=== PATIENT | male | born 1950 | race Caucasian/White ===

== ENCOUNTER 2021-07-23 00:45 | Day surgery (SDC) | payer MEDICARE, SELFPAY ==
[2021-06-20 13:05] VITALS: BMI 45.0
--- NOTE | 2021-07-01 12:07 | PC.NURSE ---
PATIENT CALLED REGARDING NEW GUIDELINES FOR COVID TESTING AND THAT HE WOULD NOT NEED TO TEST ON 07/05/2021 FOR UP COMING PROCEDURE ON 07/09/2021. PT VERBALIZED HE WAS AWARE OF THIS CHANGE IN POLICY.
--- NOTE | 2021-07-07 14:55 | PM.HPGS ---
History of Present Illness History of Present Illness Consent: Risks, benefits, and alternatives have been discussed and questions answered. Patient agrees to proceed with procedure. Chief complaint: hx of colon polyps Narrative: Joseph Guardado is a 71 year old male The history of polyps. He is here for colon cancer screening. Review of Systems Review of Systems: All systems reviewed & are unremarkable except as noted in HPI and below PMFSH Family History Family History (Updated 04/14/18 @ 16:01 by DOCTOR UNKNOWN) Mother Hypertension Social History Social History Years smoked: 3 Smoking status: Former smoker Tobacco type: cigarettes Smoking end date: 03/01/1967 Alcohol intake: never Substance use: never Substance use type: does not use Living arrangements: with family Spiritual care concerns: No Meds Home Medications and Allergies Home Medications Medication Instructions Recorded Confirmed Type aspirin 81 mg tablet,delayed 81 mg PO DAILY 06/20/21 07/23/21 History release hydrochlorothiazide 12.5 mg tablet 12.5 mg PO DAILY 06/20/21 07/23/21 History lisinopril 10 mg tablet 10 mg PO DAILY 06/20/21 07/23/21 History carbidopa 25 mg-levodopa 100 mg 25 - 100 tablet PO QID 07/23/21 07/23/21 History tablet Allergies Allergy/AdvReac Type Severity Reaction Status Date / Time No Known Allergies Allergy Verified 07/23/21 06:24 Exam Resp: Auscultation: clear to auscultation bilaterally Cardio: Rate: regular rate Rhythm: regular rhythm GI: GI Palp: Yes Soft to palpation and No Tenderness to palpation present (GI) Assessment and Plan Assessment and plan (1) Colon cancer screening: Code(s): Z12.11 - Encounter for screening for malignant neoplasm of colon Status: Acute Assessment and Plan: Colonoscopy with possible biopsy or polypectomy or cautery or injection of substances.
[2021-07-23 06:29] VITALS: BP 127/64; PULSE 87; RESP 16; TEMP 36.2; O2SAT 93
[2021-07-23] MEDS: LACTATED RINGERS 1,000 ML 150 ML IV CONT (06:41)
--- NOTE | 2021-07-23 07:15 | P.PNAN_ITS ---
Anes - Initial Pre Proc Eval Procedure: Operation Date: 07/23/21 07:30 Proposed Procedures p Screening Colonoscopy - Shay Zuñiga MD Date/Time: 07/23/21 07:15 Surgeon: Shay Zuñiga MD Pre Op Diagnosis: hx of colon polyps Patient Data Age: 71 Gender: M Height: 1.88 m Weight: 158 kg Last Vital Signs Temp 97.2 F L 07/23/21 06:29 Pulse 87 07/23/21 06:29 Resp 16 07/23/21 06:29 BP 127/64 07/23/21 06:29 Pulse Ox 93 07/23/21 06:29 O2 Del Method Room Air 07/23/21 06:29 Allergies Allergy/AdvReac Type Severity Reaction Status Date / Time No Known Allergies Allergy Verified 07/23/21 06:24 Home Medications Medication Instructions Recorded Confirmed Type aspirin 81 mg tablet,delayed 81 mg PO DAILY 06/20/21 07/23/21 History release hydrochlorothiazide 12.5 mg tablet 12.5 mg PO DAILY 06/20/21 07/23/21 History lisinopril 10 mg tablet 10 mg PO DAILY 06/20/21 07/23/21 History carbidopa 25 mg-levodopa 100 mg 25 - 100 tablet PO QID 07/23/21 07/23/21 History tablet Patient hx anesthesia problems: none Family hx anesthesia problems: none Results Review: All pre-operative results and documents have been reviewed as part of the pre- operative evaluation. [facility] Family History Family History (Updated 04/14/18 @ 16:01 by DOCTOR UNKNOWN) Mother Hypertension Social History Social History Years smoked: 3 Smoking status: Former smoker Tobacco type: cigarettes Smoking end date: 03/01/1967 Alcohol intake: never Substance use: never Substance use type: does not use Living arrangements: with family Spiritual care concerns: No Anes - Eval Final PreProcedure Day of Procedure 07/23/21 07:15 Patient weight: normal and morbidly obese Heart: regular rate and rhythm Lungs: clear to auscultation Airway: Mallampati scale class III Neurological: alert and oriented Last oral intake: >/= 8 hours ASA classification: III Emergent: no Anesthetic plan: proceed Anesthesia type and monitoring: general GIVS and standard monitoring Results Review: All pre-operative results and documents have been reviewed as part of the pre- operative evaluation. Informed Consent: The patient's anesthetic plan and its attendant risks and benefits were discussed with the patient/family/POA. Questions were solicited and answers provided to the satisfaction of the patient/family/POA.
[2021-07-23 07:50] VITALS: BP 89/46; PULSE 60; RESP 20; O2SAT 99
[2021-07-23 08:00] VITALS: BP 101/60; PULSE 64; RESP 20; O2SAT 94
[2021-07-23 08:10] VITALS: BP 106/60; PULSE 71; RESP 16; O2SAT 96
== END 2021-07-23 08:30 | disposition home or self-care (01) ==
PROVIDERS: PCP Internal Medicine; Visit Provider Internal Medicine Gastroenterology
PROC: 0DJD8ZZ Inspection of Lower Intestinal Tract, Via Natural or Artificial Opening Endoscopic (ICD-10-PCS; CPT 45378; principal; 2021-07-23 07:30)
DX: Z12.11 Encounter for screening for malignant neoplasm of colon (principal); K57.30 Diverticulosis of large intestine without perforation or abscess without bleeding; Z86.010 Personal history of colon polyps
CPT/HCPCS: G0105; J2704; J7120

== ENCOUNTER 2021-11-08 17:31 | Inpatient (IN) | payer MEDICARE, SELFPAY ==
[2021-11-08] VITALS (28 sets, daily range): BP systolic 67–117; BP diastolic 49–62; PULSE 67–81; RESP 15–28; TEMP 36.2–36.9; O2SAT 77–100; BMI 44.1
--- NOTE | ~2021-11-08 | XR_ITS ---
EXAMINATION: XR chest 1V portable Exam Date/Time: 11/08/2021 17:50 CDT HISTORY: Lightheadedness,parkinsons, hx htn Comparison: 03/21/2018. RESULT: Lines, tubes, and devices: None. Lungs and pleura: Clear. Cardiomediastinal silhouette: Stable. Other: No acute osseous or upper abdominal finding. IMPRESSION: No acute cardiopulmonary process. Reviewed, dictated and finalized at location K.
--- NOTE | ~2021-11-08 | US_ITS ---
EXAMINATION: US carotid duplex BI DATE: 11/09/2021 10:13 INDICATION: Syncope TECHNIQUE: Grayscale, color Doppler, and pulsed Doppler images of the cervical carotid arteries were obtained. The degree of vessel stenosis is placed in one of the following categories: normal, <50%, 5 0-69%, >=70% but less than near-occlusion, near-occlusion, or total occlusion. Note that percent sten osis relative to normal distal artery lumen diameter is indirectly measured from velocity measurement s as described by Osmani, et al. Radiology 2003; 229:[id number]. COMPARISON: None. FINDINGS: RIGHT: The right common carotid artery (CCA) peak systolic velocity (PSV) is 118.9 cm/s. The right internal carotid artery (ICA) PSV is 92.9 cm/s. The right ICA end-diastolic velocity (EDV) is 25.6 cm/s. The r ight ICA/CCA PSV ratio is 0.8. Grayscale and color Doppler images yield an estimate of less than 50% diameter reduction from plaque in the ICA. The external carotid artery (ECA) PSV is 142.1 cm/s. There is antegrade flow in the right vertebral artery. LEFT: The left CCA PSV is 149.8 cm/s. The left ICA PSV is 92.7 cm/s. The left ICA EDV is 28.2 cm/s. The lef t ICA/CCA PSV ratio is 0.6. Grayscale and color Doppler images yield an estimate of less than 50% beulah meter reduction from plaque in the ICA. The ECA PSV is 108.3 cm/s. There is antegrade flow in the lef t vertebral artery. IMPRESSION: 1. Less than 50% stenosis in the right internal carotid artery. 2. Less than 50% stenosis in the left internal carotid artery. Reviewed, dictated and finalized at Location A. Reviewed, dictated and finalized at location A.
--- NOTE | ~2021-11-08 | US_ITS ---
US venous doppler [facility] DATE: 11/09/2021 10:10 INDICATION: Swelling of lower extremities TECHNIQUE: Real-time and color flow imaging and Doppler analysis of the veins of the lower extremitie s COMPARISON: None FINDINGS: The greater saphenous veins are patent. There is spontaneous and phasic flow and normal aug mentation and color flow signal and normal compression of the deep veins of the lower extremities.. IMPRESSION: No evidence of deep venous thrombosis of the lower extremities Reviewed, dictated and finalized at Location A. Reviewed, dictated and finalized at location A.
--- NOTE | 2021-11-08 17:34 | ED.CHESTPAIN ---
HPI - Chest Pain General Chief Complaint: Chest Pain Stated Complaint: Possible STEMI Time Seen by Provider: 11/08/21 17:34 Source: patient, family and EMS Mode of arrival: EMS Limitations: no limitations History of Present Illness HPI narrative: Patient 71 years old white male came from home by ambulance because lightheadedness, near syncope/syncope. Patient was standing talking to his when he felt lightheadedness, went down slowly to the floor on his knees, then his did ask him to lay down on the floor because his color went white, staring, not responding to her. Lasted for about 10 to 20 seconds. Then resolved. Patient reports having similar symptoms when he gets up fast or move fast. But he never blacked out. History of hypertension, parkinsonism, patient currently on aspirin, denies any anticoagulant medications. Does not smoke or drink or uses drugs, morbidly obese, he denies any fever, chills, nausea, vomiting, chest pain, shortness of breath, headache, focal neurodeficit. Related Data Home Medications Medication Instructions Recorded Confirmed aspirin 81 mg tablet,delayed 81 mg PO DAILY 06/20/21 07/23/21 release hydrochlorothiazide 12.5 mg tablet 12.5 mg PO DAILY 06/20/21 07/23/21 lisinopril 10 mg tablet 10 mg PO DAILY 06/20/21 07/23/21 carbidopa 25 mg-levodopa 100 mg 25 - 100 tablet PO QID 07/23/21 07/23/21 tablet Allergies Allergy/AdvReac Type Severity Reaction Status Date / Time No Known Allergies Allergy Verified 07/23/21 06:24 Review of Systems Review of Systems: All systems reviewed & are unremarkable except as noted in HPI and below PMFSH Family History Family History Mother Hypertension Social History Social History Years smoked: 3 Smoking status: Former smoker Tobacco type: cigarettes Smoking end date: 03/01/1967 Alcohol intake: never Substance use: never Substance use type: does not use Spiritual care concerns: No Exam Narrative: General appearance: Well-developed, well-nourished, morbidly obese, and daughter at the bedside Skin: Normal color Head: Normocephalic, nontraumatic Eyes: Clear conjunctiva ENT: Oropharynx normal, ears normal, nose normal Neck: Supple, nontender Chest and respiratory: Airway patent, no respiratory distress, no accessory muscle use Heart: Regular rate/rhythm Abdomen: Soft, nontender, no organomegaly, quiet bowel sounds Vascular: Normal peripheral pulses, normal capillary refill. Musculoskeletal: Normal range of motion, nontender back Neurologic: Alert and oriented ?3, HOSPICE DIRECTOR is normal as tested, no gross motor deficit, constant tremors of the right upper and right lower extremity Course Vital Signs Vital signs: Vital Signs Temperature 36.9 C 11/08/21 17:30 Pulse Rate 78 11/08/21 17:30 Respiratory Rate 17 11/08/21 17:30 Blood Pressure 113/57 L 11/08/21 17:30 Pulse Oximetry 96 11/08/21 17:30 Oxygen Delivery Room Air 11/08/21 17:30 Temperature 36.9 C 11/08/21 17:30 Pulse Rate 77 11/08/21 17:37 Respiratory Rate 17 11/08/21 17:30 Blood Pressure 113/57 L 11/08/21 17:30 Pulse Oximetry 96 11/08/21 17:30 Oxygen Delivery Room Air 11/08/21 17:41 MDM - Chest Pain Differential Diagnosis Differential diagnosis: Likely other (Orthostatic hypotension, electrolyte imbalance, cardiac arrhythmia) Lab Data Result diagrams: 11/08/21 17:34 11/08/21 17:34 Labs: Lab Results 11/08/21 11/08/21 11/08/21 Range/Units 17:34 17:34 17:34 WBC 8.0 (4.5-10.0) K/mm3 RBC 4.96 (4.
--- NOTE | 2021-11-08 17:46 | ECG_ITS ---
Measurements Intervals [place] Rate: 78 P: 38 ME: 182 QRS: 24 QRSD: 154 T: 15 QT: 403 QTc: 459 Interpretive Statements SINUS RHYTHM RIGHT BUNDLE BRANCH BLOCK BASELINE ARTIFACT- I, II, III, AVR, AVL, AVF, V2 ABNORMAL ECG NO PREVIOUS ECG AVAILABLE FOR COMPARISON Electronically Signed On 11-08-2021 21:37:17 CDT by Dagoberto Pack D.O.
[2021-11-08 17:59] LABS: Basophils Percent Auto 0.5 % (0.2-1.2); Eosinophils Absolute Auto 0.2 K/mm3 (0-0.3); Eosinophils Percent Auto 2.6 % (0-4.4); Hematocrit 45.2 % (42.0-52.0); Hemoglobin 14.8 g/dL (14.0-18.0); Immature Granulocyte Absolute 0.02 K/mm3 (0.00-0.031); Immature Granulocyte Percent A 0.2 % (0-0.5); Lymphocytes Absolute Auto 2.52 K/mm3 (0.9-3.2); Lymphocytes Percent Auto 31.5 % (18.3-44.2); Mean Corpuscular HGB Conc 32.7 g/dl (32-36); Mean Corpuscular Hemoglobin 29.8 pg (26-34); Mean Corpuscular Volume 91.1 fl (80-100); Mean Platelet Volume 10.3 fl (7.4-10.4); Monocytes Absolute Auto 0.6 K/mm3 (0.1-0.6); Neutrophils Absolute Auto 4.7 K/mm3 (1.3-6.7); Neutrophils Percent Auto 58.2 % (45.5-73.1); Platelet Count Result 217 k/mm3 (150-375); Red Blood Count 4.96 M/mm3 (4.6-6.20); Red Cell Distribution Width 14.3 % (11.5-14.5)
[2021-11-08 18:05] LABS: Alanine Aminotransferase 11 U/L (6-50); Albumin Level 3.8 g/dL (3.5-5.1); Alkaline Phosphatase 71 U/L (38-126); Anion Gap 11 mmol/L (8-16); Aspartate Amino Transferase 27 U/L (17-59); Bilirubin,Total 0.4 mg/dL (0.2-1.3); Blood Urea Nitrogen 14 mg/dL (9-20); Calcium 8.5 mg/dL (8.4-10.2); Carbon Dioxide 28 mmol/L (22-30); Chloride 100 mmol/L (98-107); Estimated CRCL calculation 102 ml/min; Estimated Glomerular Filt Rate > 60; Glucose 123 mg/dL (65-110); Potassium 3.6 mmol/L (3.4-5.0); Sodium 139 mmol/L (137-145)
[2021-11-08 18:10] LABS: INR 1.1; Prothrombin Time 13.9 Seconds (11.1-14.7)
[2021-11-08 18:11] LABS: Partial Thromboplastin Time 27.2 SECONDS (22.3-36.8)
[2021-11-08 18:18] LABS: Troponin I < 0.012 ng/mL (0.000-0.034)
[2021-11-08] MEDS: SODIUM CHLORIDE 0.9% IV 1,000 ML 999 ML IV CONT ×2 (19:06→19:17)
[2021-11-08 19:51] LABS: Appearance Urine Clear (Clear); Bilirubin Urine 1+ (Negative); Color Urine Yellow (Yellow); Glucose Urine UA Negative (Negative); Ketones Urine Trace mg/dL (Negative); Leukocyte Esterase Ur Negative LEU/UL (Negative); Nitrate Urine Negative (Negative); Protein Urine 1+ mg/dL (Negative); Specific Grav Ur 1.015 (1.001-1.035)
[2021-11-08] MEDS: CARBIDOPA/LEVODOPA 25/100 MG TABLET 1 TABLET PO (19:53)
[2021-11-08 19:56] LABS: Add Urine Microscopic? YES; Bacteria Urine Trace /hpf; Blood Urine Trace-Intact (Negative); Mucus Urine Rare /lpf; WBC Urine 0-3 /hpf
--- NOTE | 2021-11-08 20:00 | PM.IMHP ---
H&P: HPI History of Present Illness Date/Time: 10/30/21 20:00 Chief Complaint: Brief loss of consciousness. Narrative: This is a very pleasant 71-year-old male with Parkinson's disease, hypertension, sleep apnea, and history of pulmonary embolism who presented to the emergency department via EMS from home for evaluation after a brief loss of consciousness. Not long prior to arrival he was standing in his kitchen when he began to feel extremely lightheaded, dizzy, and weak. He was speaking with his at the time and she helped him to get slowly down on the floor. He initially landed on his knees and then he rolled into a supine position. At that time noticed that he was extremely pale and he seemed to be staring off into space, not responding to her. This lasted for approximately 10 to 20 seconds and he came to without issue. He has had similar symptoms in the past, typically if he gets up too quickly. It is not unusual for him to feel a bit lightheaded when he goes from a sitting to a standing position. He has never had an episode where he lost consciousness, however. EKG done in the field was initially called a STEMI however his EKG showed a a right bundle branch block and no acute ST segment changes. The patient was not having any chest pain whatsoever and his troponins have been negative. At the time my evaluation he is resting comfortably and has no complaints. Review of Systems Review of Systems: Twelve systems were reviewed. He ambulates unassisted. No dysphagia or concerns for aspiration. [facility] Past Medical History Medical History (Updated 11/09/21 @ 00:19 by Rabia Orr PA-C) Arthritis Hypertension Obstructive sleep apnea on CPAP Parkinsons disease Pulmonary embolism (2018) Surgical History Surgical History (Updated 11/09/21 @ 00:19 by Rabia Orr PA-C) History of ankle surgery ORIF left ankle fracture. History of bilateral knee arthroplasty History of lumbar discectomy History of tonsillectomy Family History Family History Mother Hypertension Father Acute myocardial infarction Social History Social History (Updated 11/09/21 @ 13:49 by Rabia Orr PA-C) Social History: Surrogate medical decision maker: Yareli Guardado, spouse. Code status: Full code. Years smoked: 2 Smoking status: Former smoker Tobacco type: cigarettes Smoking end date: 03/01/1967 Alcohol intake: never Substance use: never Substance use type: does not use Additional living arrangements comments: Lives with spouse in [facility] Spiritual care concerns: No Meds Home Medications and Allergies Home Medications Medication Instructions Recorded Confirmed Type aspirin 81 mg tablet,delayed 81 mg PO DAILY 06/20/21 11/08/21 History release hydrochlorothiazide 12.5 mg tablet 12.5 mg PO DAILY 06/20/21 11/08/21 History lisinopril 10 mg tablet 10 mg PO DAILY 06/20/21 11/08/21 History carbidopa 25 mg-levodopa 100 mg 1 tablet PO Q6H 07/23/21 11/08/21 History tablet Allergies Allergy/AdvReac Type Severity Reaction Status Date / Time No Known Allergies Allergy Verified 11/08/21 20:39 Vital Signs Vital Signs - 24 hr 11/08/21 17:30 11/08/21 17:37 11/08/21 17:41 Temperature 98.5 F Pulse Rate 78 77 Respiratory Rate 17 Blood Pressure 113/57 L Pulse Oximetry 96 Oxygen Delivery Room Air Room Air 11/08/21 17:47 11/08/21 18:41 11/08/21 18:44 Temperature Pulse Rate 72 74 79 Respiratory Rate Blood Pressure 99/51 L 88/60 L 67/52 L Pulse Oximetry Oxygen Delivery 11/08/21 17:35 11/08/21 17:36 11/08/21 17:45 Temperature Pulse Rate 79 79 77 Respiratory Rate 28 H 16 20 Blood Pressure 113/57 L Pulse Oximetry 96 96 98 Oxygen Delivery 11/08/21 17:46 11/08/21 18:00 11/08/21 18:01 Temperature Pulse Rate 77 73 74 Respiratory Rate 15 18 21 H Blood Pressure 111/54 L 107/55 L Pu
[2021-11-08 21:35] LABS: Troponin I < 0.012 ng/mL (0.000-0.034)
--- NOTE | 2021-11-08 23:12 | PC.NURSE ---
Addendum entered by Jessi Ramsey RN 11/09/21 01:29: Pt arrived to the floor at 2215 Original Note: This patient, Joseph Guardado, was admitted to IMU Room 211-01. Patient/family oriented to hospital policies and general routines including ID bracelet, bed and alarms, visiting hours, pain management, procedures, bathroom and other care routines, personal items, smoking policy, room service/diet, and visiting hours. Information on how to activate the Rapid Response Team has been discussed. Patient/Family are encouraged to report perceived risks to care and to ask questions if they do not understand what they are told or what they should do.
[2021-11-09] VITALS (19 sets, daily range): BP systolic 107–142; BP diastolic 53–107; PULSE 62–84; RESP 16–24; TEMP 36.6–37.1; O2SAT 95–100
[2021-11-09] MEDS: CARBIDOPA/LEVODOPA 25/100 MG TABLET 1 TABLET PO ×4 (06:17→23:49)
--- NOTE | 2021-11-09 08:43 | PM.IMPN ---
Progress Note: A&P Assessment and Plan (1) Orthostatic hypotension: Code(s): I95.1 - Orthostatic hypotension Status: Acute (2) Syncope: Code(s): R55 - Syncope and collapse Status: Acute (3) Parkinsons disease: Code(s): G20 - Parkinson's disease Status: Acute (4) Obstructive sleep apnea on CPAP: Code(s): G47.33 - Obstructive sleep apnea (adult) (pediatric); Z99.89 - Dependence on other enabling machines and devices Status: Acute (5) Hypertension: Code(s): I10 - Essential (primary) hypertension Status: Acute Plan The patient presented to the emergency department via EMS from home for evaluation after he had a brief syncopal episode at home. Prior to that he was standing in the kitchen speaking with his when he began to feel dizzy, lightheaded, and weak. He has episodes like this on occasion, mainly when changing positions too quickly or going from a seated to standing position.? He did have positive orthostatic vital signs in the emergency department and I suspect he has got some autonomic dysfunction from his Parkinson's which is predisposing him to this unfortunately. Most likely his blood pressure dropped while he was in the kitchen causing the brief syncopal episode however he will be monitored on telemetry to rule out cardiac dysrhythmia.? An echocardiogram and carotid Doppler ultrasounds have been ordered for a.m..? Pulmonary embolism is considered given history of the same however seems less likely by history.? He does have significant lower extremity edema however and we will check venous Doppler ultrasounds to rule out DVT. At this time will hold his antihypertensives and monitor orthostatic vital signs every shift. Should this be an ongoing problem we would consider adding midodrine though again will have to monitor his blood pressure as he would be at risk for supine hypertension. Labs were reviewed and they are reassuring. His home medications will be reviewed and resumed as appropriate. 11/09/21 Parkinson's pt home meds dosing regimen to be continued on normal schedule cont to hold antihypertensives orthostatics vital signs q shift (have not been appropriately documented since admission clarification order sent to RN to alert them to need for OVS) on going IVFs depending on OVS findings cont current care ECHO pending carotids w/o significant stenosis anticipate dc tomorrow after OVS corrected Subjective Date/time seen: 11/09/21 08:43 shaking uncontrolled pt states he is not receiving his home meds on correct dosing schedule Review of Systems Review of Systems: All systems reviewed & are unremarkable except as noted in HPI and below Exam Narrative: General: Well-developed male supine in bed in no distress. Weight: 56 kilograms. BMI: 44.2. HEENT: Normocephalic, atraumatic. Wearing glasses. PERRL, EOMI. Sclera anicteric. Oral mucosa moist. Crowded oropharynx. Neck: Supple. Exam limited due to neck circumference. No obvious bruits. Respiratory: Respirations are nonlabored and he is speaking in full sentences. Lungs are clear to auscultation. Cardiovascular: Regular rate and rhythm with S1-S2. Gastrointestinal: Abdomen is soft, obese, and nontender with positive bowel sounds. No organomegaly. Skin: Warm and dry. Chronic skin changes of the lower legs bilaterally. Extremities: No cyanosis or clubbing. He has chronic pitting and nonpitting edema of the lower legs. No palpable knots or cords. Negative Clovis sign bilaterally. Radial pulses palpable. Pedal pulses difficult to palpate given edema but feet are well perfused. Neurological: Alert. Cranial nerves 2-12 are grossly intact. Speech is clear. No facial asymmetry. No gross focal deficits to casual conversation. Psychiatric: Pleasant and cooperative with normal mood and affect. Judgment and insight intact. Objective Data Vital Signs Vital Signs: Vital Signs - 24 hr 11/08/21 17:30 11/08
[2021-11-09] MEDS: ASPIRIN 81 MG ENTERIC TABLET PO (09:18)
[2021-11-10] VITALS (11 sets, daily range): BP systolic 125–149; BP diastolic 72–98; PULSE 60–92; RESP 12–16; TEMP 36.5–36.9; O2SAT 96–97
--- NOTE | 2021-11-10 | ECHO_ITS ---
Patient Info Name: Joseph Guardado Age: 71 years : 1950 Gender: Male Ht: 74 in Wt: 343 lbs BSA: 2.92 m2 HR: 60 bpm BP: 125 / 75 mmHg Heart Rhythm: Sinus Rhythm Technical Quality: Fair Exam Date: 11/10/2021 10:30 AM Exam Location: [facility] Patient Status: Inpatient Admit Date: 11/09/2021 Staff Ordering Physician: Rabia Orr PA-C Director Teen Post: Kat Panchal RDCS Attending Provider: Raiza Bush MD Referring Physician: Kirby PITTMAN; Exam Type: CA echo dop color flow w con Study Info Indications R55 - Syncope and collapse Complete two-dimensional, color flow and Doppler transthoracic echocardiogram is performed with contrast to opacify the left ventricle and to improve the deliniation of the left ventricle endocardial borders. Contrast/Agitated Saline Contrast/Ag. Saline: Definity Amount: 3.00 ml Administered By: Kat Panchal RDCS Existing IV Access: Yes IV Access Condition: patent with no signs of infiltration Summary 1. Technically difficult study with limited views. Definity echo contrast enhancement utilized. 2. Left ventricular chamber dimension is normal. 3. Left ventricular systolic function is normal, estimated at 65-70%. 4. There is no increased left ventricular wall thickness. 5. Left ventricular septal wall motion is abnormal with septal motion related to bundle branch block. 6. The left ventricular diastolic function is grade I diastolic dysfunction. 7. There is no aortic valve stenosis. 8. There is trace mitral valve regurgitation. 9. There is trace tricuspid valve regurgitation. 10. No pulmonary hypertension, estimated pulmonary arterial systolic pressure is 30 mmHg. Left Ventricle Left ventricular chamber dimension is normal. Left ventricular systolic function is normal, estimated at 65-70%. There is no increased left ventricular wall thickness. Left ventricular septal wall motion is abnormal with septal motion related to bundle branch block. The left ventricular diastolic function is grade I diastolic dysfunction. Technically difficult study with limited views. Definity echo contrast enhancement utilized. Right Ventricle Right ventricular chamber dimension is normal. Right ventricular systolic function is normal. Left Atria Left atrial chamber dimension is normal. Right Atria Right atrial chamber dimension is normal. Aortic Valve The aortic valve is not well visualized. There is no aortic valve stenosis. There is no aortic valve regurgitation. Pulmonic Valve The pulmonic valve is not well visualized. Mitral Valve The mitral valve has normal leaflets. There is trace mitral valve regurgitation. The mitral valve annulus is mildly calcified. Tricuspid Valve The tricuspid valve leaflets are not well visualized. There is trace tricuspid valve regurgitation. No pulmonary hypertension, estimated pulmonary arterial systolic pressure is 30 mmHg. Pericardium/Pleural The pericardium appears not well visualized. There is trivial pericardial effusion. Aorta The aortic root size at the sinus of Valsalva is normal. Left Ventricular Outflow Tract Name Value Normal LVOT 2D LVOT Diam
[2021-11-10 04:40] LABS: Basophils Percent Auto 0.3 % (0.2-1.2); Eosinophils Absolute Auto 0.2 K/mm3 (0-0.3); Eosinophils Percent Auto 3.2 % (0-4.4); Hematocrit 41.5 % (42.0-52.0); Hemoglobin 13.5 g/dL (14.0-18.0); Immature Granulocyte Absolute 0.01 K/mm3 (0.00-0.031); Immature Granulocyte Percent A 0.1 % (0-0.5); Lymphocytes Absolute Auto 1.92 K/mm3 (0.9-3.2); Lymphocytes Percent Auto 28.3 % (18.3-44.2); Mean Corpuscular HGB Conc 32.5 g/dl (32-36); Mean Corpuscular Hemoglobin 29.9 pg (26-34); Mean Corpuscular Volume 91.8 fl (80-100); Mean Platelet Volume 10.4 fl (7.4-10.4); Monocytes Absolute Auto 0.6 K/mm3 (0.1-0.6); Monocytes Percent Auto 9.4 % (2.6-8.5); Neutrophils Percent Auto 58.7 % (45.5-73.1); Platelet Count Result 178 k/mm3 (150-375); Red Blood Count 4.52 M/mm3 (4.6-6.20); Red Cell Distribution Width 14.5 % (11.5-14.5); White Blood Count 6.8 K/mm3 (4.5-10.0)
[2021-11-10 04:55] LABS: Anion Gap 8 mmol/L (8-16); Blood Urea Nitrogen 15 mg/dL (9-20); Calcium 8.5 mg/dL (8.4-10.2); Carbon Dioxide 28 mmol/L (22-30); Chloride 102 mmol/L (98-107); Estimated CRCL calculation 128 ml/min; Estimated Glomerular Filt Rate > 60; Glucose 111 mg/dL (65-110); Potassium 3.9 mmol/L (3.4-5.0); Sodium 138 mmol/L (137-145)
[2021-11-10] MEDS: CARBIDOPA/LEVODOPA 25/100 MG TABLET 1 TABLET PO ×2 (08:35→14:01)
[2021-11-10] MEDS: ASPIRIN 81 MG ENTERIC TABLET PO (08:35)
[2021-11-10] MEDS: SODIUM CHLORIDE 0.9% IV 1,000 ML 100 ML IV CONT (08:35)
[2021-11-10] MEDS: PERFLUTREN LIPID MICROSPHERES 1.5 ML VIAL DILUTED TO 10 ML TOTAL VOLUME IV PUSH (10:56)
--- NOTE | 2021-11-10 10:57 | IVDEFINITY ---
Prior to administration of IV Definity the patient was educated on the risks and benefits of the imaging enhancing agent including potential adverse side effects. The patient verbalized understanding. Allergies were verified. No exclusion criteria were identified and at least one of the following inclusion criteria were met: 1) physician request, 2) patient technically difficult to image (per the [place] [employer] guidelines of two or more segments not discernable within the apical view), or 3) questionable left ventricular function. ?
--- NOTE | 2021-11-10 15:22 | PM.DS ---
DS: Admitting Diagnosis Discharge Date 11/10/21 Admitting Diagnosis (1) Orthostatic hypotension: ?Code(s): I95.1 - Orthostatic hypotension ?Status:?Acute (2) Syncope: ?Code(s): R55 - Syncope and collapse ?Status:?Acute (3) Parkinsons disease: ?Code(s): G20 - Parkinson's disease ?Status:?Acute (4) Obstructive sleep apnea on CPAP: ?Code(s): G47.33 - Obstructive sleep apnea (adult) (pediatric); Z99.89 - Dependence on other enabling machines and devices ?Status:?Acute (5) Hypertension: ?Code(s): I10 - Essential (primary) hypertension ?Status:?Acute DS: Discharge Diagnosis Discharge Diagnosis (1) Orthostatic hypotension: Code(s): I95.1 - Orthostatic hypotension Status: Acute (2) Syncope: Code(s): R55 - Syncope and collapse Status: Acute (3) Parkinsons disease: Code(s): G20 - Parkinson's disease Status: Acute (4) Obstructive sleep apnea on CPAP: Code(s): G47.33 - Obstructive sleep apnea (adult) (pediatric); Z99.89 - Dependence on other enabling machines and devices Status: Acute (5) Hypertension: Code(s): I10 - Essential (primary) hypertension Status: Acute DS: Summary Hospital Course Reason for hospitalization: Chief Complaint: Brief loss of consciousness. Narrative: This is a very pleasant 71-year-old male with Parkinson's disease, hypertension, sleep apnea, and history of pulmonary embolism who presented to the emergency department via EMS from home for evaluation after a brief loss of consciousness. Not long prior to arrival he was standing in his kitchen when he began to feel extremely lightheaded, dizzy, and weak. He was speaking with his at the time and she helped him to get slowly down on the floor. He initially landed on his knees and then he rolled into a supine position. At that time noticed that he was extremely pale and he seemed to be staring off into space, not responding to her.? This lasted for approximately 10 to 20 seconds and he came to without issue. He has had similar symptoms in the past, typically if he gets up too quickly.? It is not unusual for him to feel a bit lightheaded when he goes from a sitting to a standing position.? He has never had an episode where he lost consciousness, however. EKG done in the field was initially called a STEMI however his EKG showed a a right bundle branch block and no acute ST segment changes.? The patient was not having any chest pain whatsoever and his troponins have been negative. At the time my evaluation he is resting comfortably and has no complaints. Hospital Course: The patient presented to the emergency department via EMS from home for evaluation after he had a brief syncopal episode at home. Prior to that he was standing in the kitchen speaking with his when he began to feel dizzy, lightheaded, and weak. He has episodes like this on occasion, mainly when changing positions too quickly or going from a seated to standing position.? He did have positive orthostatic vital signs in the emergency department and I suspect he has got some autonomic dysfunction from his Parkinson's which is predisposing him to this unfortunately. Most likely his blood pressure dropped while he was in the kitchen causing the brief syncopal episode however he will be monitored on telemetry to rule out cardiac dysrhythmia.? An echocardiogram and carotid Doppler ultrasounds have been ordered for a.m..? Pulmonary embolism is considered given history of the same however seems less likely by history.? He does have significant lower extremity edema however and we will check venous Doppler ultrasounds to rule out DVT. At this time will hold his antihypertensives and monitor orthostatic vital signs every shift. Should this be an ongoing problem we would consider adding midodrine though again will have to monitor his blood pressure as he would be at risk for supine hypertension. Labs were re
== END 2021-11-10 16:59 | disposition home or self-care (01) | DRG 57 ==
LOC: ANHED 18:43 → ANHIMU 19:38
PROVIDERS: Admitting Provider Family Medicine; Emergency Provider Emergency Medicine; PCP Internal Medicine; Visit Provider Hospitalist
DX: G90.3 Multi-system degeneration of the autonomic nervous system (principal); Z68.41 Body mass index [BMI] 40.0-44.9, adult; E66.01 Morbid (severe) obesity due to excess calories; G20 Parkinson's disease; G47.33 Obstructive sleep apnea (adult) (pediatric); I10 Essential (primary) hypertension; I45.10 Unspecified right bundle-branch block; M19.90 Unspecified osteoarthritis, unspecified site; R60.0 Localized edema; Z99.89 Dependence on other enabling machines and devices; Z87.891 Personal history of nicotine dependence; Z96.653 Presence of artificial knee joint, bilateral; Z79.82 Long term (current) use of aspirin; Z86.711 Personal history of pulmonary embolism
CPT/HCPCS: 36415; 71045; 80048; 80053; 81001; 84484; 85025; 85610; 85730; 93005; 93880; 93970; 99285; A9270; C8929; G0378; J7030; Q9957

== ENCOUNTER 2023-02-15 06:23 | Inpatient (IN) | payer MEDICARE, SELFPAY ==
[2023-02-15] VITALS (20 sets, daily range): BP systolic 121–144; BP diastolic 66–80; PULSE 80–106; RESP 14–24; TEMP 36.6; O2SAT 86–100
--- NOTE | ~2023-02-15 | XR_ITS ---
Portable chest x-ray Comparison: 11/08/2021 Clinical History: Dyspnea Findings: Questionable minimal bibasilar interstitial edema. Possible COPD. Cardiomediastinal silho uette is stable. Bones and soft tissues are unremarkable. Impression: Questionable minimal bibasilar interstitial edema. Suspected COPD. Reviewed, dictated and finalized at location . [employer] Impression: Questionable minimal bibasilar interstitial edema. Suspected COPD.
--- NOTE | ~2023-02-15 | CT_ITS ---
EXAMINATION: CT soft tissue neck w con DATE: 02/15/2023 09:18 INDICATION: Stridor TECHNIQUE: Computed tomography (CT) of the neck was performed with 75 mL Omnipaque-350 intravenous co ntrast. Automated exposure control and iterative reconstruction technique were employed. The dose-pina gth product was 677.86 mGy-cm. COMPARISON: None FINDINGS: Orbits are normal. The paranasal sinuses are clear. Mastoid air cells, middle ear cavities and visual ized portions of the paranasal sinuses are clear. Submandibular and parotid glands are normal and sym metric. Thyroid gland is unremarkable. There are scattered normal-sized lymph nodes in the neck, no l ymphadenopathy. No masses identified. The airways are widely patent throughout. Normal epiglottis am ount aryepiglottic folds and parapharyngeal soft tissues. No subglottic narrowing. Small amount of at herosclerotic calcification without hemodynamically significant stenosis at the bilateral carotid bul bs. Superior mediastinum is unremarkable. Lung apices are normal. Severe cervical spondylosis. IMPRESSION: 1. Airways are widely patent throughout with no evident etiology for reported stridor. Reviewed, dictated and finalized at location A. PRODUCER IMPRESSION: 1. Airways are widely patent throughout with no evident etiology for reported s tridor.
--- NOTE | 2023-02-15 06:25 | ECG_ITS ---
Measurements Intervals [place] Rate: 96 P: 58 PA: 175 QRS: 91 QRSD: 150 T: 46 QT: 362 QTc: 459 Interpretive Statements SINUS RHYTHM WITH OCCASIONAL VENTRICULAR PREMATURE COMPLEXES BASELINE ARTIFACT INDETERMINATE AXIS RIGHT BUNDLE BRANCH BLOCK ABNORMAL ECG COMPARED TO ECG 11/08/2021 17:32:52 NO SIGNIFICANT CHANGES Electronically Signed On 02-15-2023 17:12:55 SCREEN PRINTER HELPER by Norris Cruz M.D.
[2023-02-15] MEDS: IPRATROPIUM BR 0.02% INH SOLN 0.5 MG/2.5 ML VIAL 1.5 MG INHALATION (06:39)
[2023-02-15] MEDS: ALBUTEROL SULFATE NEB 2.5 MG/3 ML INH 10 MG INHALATION (06:39)
[2023-02-15 06:59] LABS: Basophils Absolute Auto 0.1 K/mm3 (0.0-0.1); Basophils Percent Auto 0.5 % (0.2-1.2); Eosinophils Absolute Auto 0.9 K/mm3 (0-0.3); Eosinophils Percent Auto 9.1 % (0-4.4); Hematocrit 48.9 % (42.0-52.0); Hemoglobin 15.2 g/dL (14.0-18.0); Immature Granulocyte Absolute 0.04 K/mm3 (0.00-0.031); Immature Granulocyte Percent A 0.4 % (0-0.5); Lymphocytes Absolute Auto 2.33 K/mm3 (0.9-3.2); Lymphocytes Percent Auto 24.5 % (18.3-44.2); Mean Corpuscular HGB Conc 31.1 g/dl (32-36); Mean Corpuscular Hemoglobin 30.2 pg (26-34); Mean Platelet Volume 10.5 fl (7.4-10.4); Monocytes Absolute Auto 0.8 K/mm3 (0.1-0.6); Neutrophils Absolute Auto 5.5 K/mm3 (1.3-6.7); Neutrophils Percent Auto 57.5 % (45.5-73.1); Platelet Count Result 206 k/mm3 (150-375); Red Blood Count 5.04 M/mm3 (4.6-6.20); Red Cell Distribution Width 13.9 % (11.5-14.5); White Blood Count 9.5 K/mm3 (4.5-10.0)
[2023-02-15 07:10] LABS: Alanine Aminotransferase 18 U/L (6-50); Albumin Level 4.2 g/dL (3.5-5.1); Alkaline Phosphatase 104 U/L (38-126); Anion Gap 6 mmol/L (8-16); Aspartate Amino Transferase 32 U/L (17-59); Bilirubin,Total 0.8 mg/dL (0.2-1.3); Blood Urea Nitrogen 17 mg/dL (9-20); Calcium 9.3 mg/dL (8.4-10.2); Carbon Dioxide 31 mmol/L (22-30); Chloride 101 mmol/L (98-107); Estimated CRCL calculation 129 ml/min; Estimated Glomerular Filt Rate > 60; Glucose 140 mg/dL (65-110); Potassium 4.2 mmol/L (3.4-5.0); Sodium 138 mmol/L (137-145)
[2023-02-15 07:11] LABS: Prothrombin Time 14.2 Seconds (11.1-14.7)
[2023-02-15 07:12] LABS: Partial Thromboplastin Time 27.4 SECONDS (22.3-36.8)
[2023-02-15 07:18] LABS: NT Pro B Type Natriuretic Pept 31 pg/mL (19.9-100)
[2023-02-15] MEDS: racEPINEPHrine 2.25% NEBU SOLN 0.5 ML VIAL.NEB (08:01)
[2023-02-15] MEDS: racEPINEPHrine 2.25% NEBU SOLN 0.5 ML VIAL.NEB INHALATION (08:04)
--- NOTE | 2023-02-15 08:30 | ED.SOB ---
HPI - SOB/Dyspnea General Chief Complaint: Shortness of Breath/Dyspnea Stated Complaint: SOB, wheezing Time Seen by Provider: 02/15/23 06:58 History of Present Illness HPI Narrative: patient is a 72-year-old male who presents ER with shortness of breath. He has been wheezing since 02/08/2023 when he saw his PCP. It has worsened over last week despite using albuterol. No fevers or chills or sweats. No productive cough. No pain with deep breath. Has history of PE in the past and this feels different. Reports mild orthopnea. No alleviating factors. Patient hypoxic on arrival. Patient received 10 mg Decadron prior to being seen by this physician. Related Data Home Medications Medication Instructions Recorded Confirmed aspirin 81 mg tablet,delayed 81 mg PO DAILY 06/20/21 02/15/23 release carbidopa 25 mg-levodopa 100 mg 4 tablet PO Q8H 07/23/21 02/15/23 tablet albuterol sulfate 90 mcg/actuation 90 mcg inhalation USEASDIRECTD 02/15/23 02/15/23 aerosol inhaler (Ventolin HFA) atorvastatin 40 mg tablet 40 mg PO DAILY 02/15/23 02/15/23 Allergies Allergy/AdvReac Type Severity Reaction Status Date / Time No Known Allergies Allergy Verified 02/15/23 15:40 Review of Systems Review of Systems: All systems reviewed & are unremarkable except as noted in HPI and below Constitutional: Constitutional: Denies chills, Reports fatigue and Denies fever(s) ENT: Reports system reviewed and no additional complaints, except as documented Cardiovascular: Cardiovascular: Reports no additional cardiovascular complaints Respiratory: Respiratory: Reports cough, Reports dyspnea and Reports wheezing Gastrointestinal: Gastrointestinal: Reports no additional gastrointestinal complaints Genitourinary: Genitourinary: Reports no additional male genitourinary complaints Musculoskeletal: Musculoskeletal: Reports no additional musculoskeletal complaints [facility] Past Medical History Medical History (Updated 02/15/23 @ 19:09 by Jacobo Posey MD) Arthritis Hypertension Obstructive sleep apnea on CPAP Parkinsons disease Pulmonary embolism (2018) Surgical History Surgical History (Updated 11/09/21 @ 00:19 by Rabia Orr PA-C) History of ankle surgery ORIF left ankle fracture. History of bilateral knee arthroplasty History of lumbar discectomy History of tonsillectomy Family History Family History Mother Hypertension Father Acute myocardial infarction Social History Social History (Updated 11/09/21 @ 13:49 by Rabia Orr PA-C) Social History: Surrogate medical decision maker: Yareli Guardado, spouse. Code status: Full code. Years smoked: 2 Smoking status: Never smoker Tobacco type: cigarettes Smoking end date: 03/01/1967 Alcohol intake: never Substance use: never Substance use type: does not use Do You Feel Safe in your Home?: Yes Lack of Transportation: No Lack of Food: Never True Current Housing: I Have Housing Concerned About Future Housing: No Difficulty Paying Gas/Electric Bills: No Difficulty Paying for Meds: No Currently Unemployed: No Education: Don't Know Difficulty w/ Childcare or Family Care: No Living arrangements: with family Additional living arrangements comments: Lives with spouse in [facility] Spiritual care concerns: No Exam Narrative: GENERAL: Well-appearing, well-nourished, and in mild distress. HEAD: Normocephalic, atraumatic. ENT: Mucous membranes moist. NECK: Supple. CHEST: mild respiratory distress with expiratory wheezing. HEART: Regular rate and rhythm. Normal peripheral pulses. ABDOMEN: Soft, nontender, nondistended. EXTREMITIES: Normal range of motion. No edema. SKIN: Warm, dry, no rash. NEURO: Alert and oriented x3. PSYCH: Normal mood and affect. Course Course Emergency Course: Lung sounds improving with nebulizer treatment and racemic treatment. Ad
[2023-02-15 09:33] LABS: Influenza A QL RT-PCR Negative (Negative); Influenza B QL RT-PCR Negative (Negative); SARS-CoV-2 RNA PCR Negative (Negative)
--- NOTE | 2023-02-15 10:18 | PM.IMHP ---
H&P: HPI History of Present Illness Date/Time: 02/15/23 10:18 Chief Complaint: Cough and shortness breath Narrative: 72 years old gentleman with history of COPD, present ED with a chief complaint of cough and shortness breath. Patient has been having cough and wheezing in past 1 week, is getting worse since Wednesday. Patient visited primary care doctor,. patient has been using albuterol. Pressure shortness is getting worse gradually, patient has worsening cough, denies fever, chills, abdominal pain, nausea vomiting diarrhea. CT of neck shows airways are widely patent throughout with no evident etiology for reported stridor.. COVID 19 and flu test negative also. Patient also found have hypoxemia. patient received 10 mg Decadron and methylprednisone 60 mg Q 6 hour in the ED, patient still has significant dyspnea. We admit patient for further patient management PMFSH Past Medical History Medical History (Updated 02/15/23 @ 10:25 by Elizabeth Farah MD) Arthritis Hypertension Obstructive sleep apnea on CPAP Parkinsons disease Pulmonary embolism (2018) Surgical History Surgical History (Updated 11/09/21 @ 00:19 by Rabia Orr PA-C) History of ankle surgery ORIF left ankle fracture. History of bilateral knee arthroplasty History of lumbar discectomy History of tonsillectomy Family History Family History Mother Hypertension Father Acute myocardial infarction Social History Social History (Updated 11/09/21 @ 13:49 by Rabia Orr PA-C) Social History: Surrogate medical decision maker: Yareli Guardado, spouse. Code status: Full code. Years smoked: 2 Smoking status: Former smoker Tobacco type: cigarettes Smoking end date: 03/01/1967 Alcohol intake: never Substance use: never Substance use type: does not use Living arrangements: with family Additional living arrangements comments: Lives with spouse in [facility] Spiritual care concerns: No Meds Home Medications and Allergies Home Medications Medication Instructions Recorded Confirmed Type aspirin 81 mg tablet,delayed 81 mg PO DAILY 06/20/21 02/15/23 History release lisinopril 10 mg tablet 10 mg PO DAILY 06/20/21 02/15/23 History carbidopa 25 mg-levodopa 100 mg 4 tablet PO Q8H 07/23/21 02/15/23 History tablet albuterol sulfate 90 mcg/actuation 90 mcg inhalation USEASDIRECTD 02/15/23 02/15/23 History aerosol inhaler (Ventolin HFA) atorvastatin 40 mg tablet 40 mg PO DAILY 02/15/23 02/15/23 History hydrochlorothiazide 12.5 mg tablet 12.5 mg PO DAILY 02/15/23 02/15/23 History Allergies Allergy/AdvReac Type Severity Reaction Status Date / Time No Known Allergies Allergy Verified 02/15/23 07:10 Vital Signs Vital Signs - 24 hr 02/15/23 06:30 02/15/23 06:40 02/15/23 07:14 Pulse Rate 96 80 97 Respiratory Rate 24 H 22 H 19 Blood Pressure 140/68 125/70 Pulse Oximetry 86 L 100 Oxygen Delivery Room Air Oxygen Flow Rate 02/15/23 07:59 02/15/23 08:01 02/15/23 08:08 Pulse Rate 96 98 98 Respiratory Rate 22 H 18 18 Blood Pressure 121/78 Pulse Oximetry 100 Oxygen Delivery Oxygen Flow Rate 02/15/23 08:23 02/15/23 08:35 02/15/23 08:45 Pulse Rate 106 H 99 Respiratory Rate 20 20 Blood Pressure 137/71 Pulse Oximetry 100 95 Oxygen Delivery Nasal Cannula Oxygen Flow Rate 2 02/15/23 08:46 02/15/23 08:48 Pulse Rate 98 Respiratory Rate 15 Blood Pressure 124/67 Pulse Oximetry 95 97 Oxygen Delivery Nasal Cannula Oxygen Flow Rate 2 H&P: Results Labs Labs: Short CBC 02/15/23 Range/Units 06:47 WBC 9.5 (4.5-10.0) K/mm3 Hgb 15.2 (14.0-18.0) g/dL Hct 48.9 (42.0-52.0) % Plt Count 206 (150-375) k/mm3 [facility] 02/15/23 06:47 Sodium 138 Potassium 4.2 Chloride 101 Carbon Dioxide 31 H BUN 17 Creatinine 0.70 Glucose 140 H Calcium 9.3 Liver Function 02/15/23 Range/Units
--- NOTE | 2023-02-15 12:17 | PC.NURSE ---
This RN spoke with Virginia with admissions and informed her pt stated his Carbidopa/Levodopa 25/100mg had been increased to 4 tablets three times a day.
--- NOTE | 2023-02-15 15:39 | ADMGEN ---
This patient, Joseph Guardado, was admitted to 3 [facility] Room 315-01. Patient/family oriented to hospital policies and general routines including ID bracelet, bed and alarms, visiting hours, pain management, procedures, bathroom and other care routines, personal items, smoking policy, room service/diet, and visiting hours. Information on how to activate the Rapid Response Team has been discussed. Patient/Family are encouraged to report perceived risks to care and to ask questions if they do not understand what they are told or what they should do.
[2023-02-15] MEDS: ALBUTEROL SULFATE NEB 2.5 MG/3 ML INH INHALATION ×2 (15:59→21:10)
[2023-02-15] MEDS: IPRATROPIUM BR 0.02% INH SOLN 0.5 MG/2.5 ML VIAL INHALATION ×2 (15:59→21:10)
[2023-02-15] MEDS: ATORVASTATIN 40 MG TABLET PO (16:04)
[2023-02-15] MEDS: CARBIDOPA/LEVODOPA 25/100 MG TABLET 4 TABLET PO ×2 (16:04→23:11)
[2023-02-15] MEDS: methylPREDNISolone SOD SUCC 125 MG VIAL 60 MG IV PUSH ×2 (16:04→23:29)
[2023-02-15] MEDS: ASPIRIN 81 MG ENTERIC TABLET PO (16:04)
[2023-02-15] MEDS: HYDROcodone/acetaminophen (*CRX) 5-325 MG TABLET 1 TAB PO (23:12)
[2023-02-16] VITALS (16 sets, daily range): BP systolic 126–153; BP diastolic 59–74; PULSE 77–105; RESP 16–22; TEMP 36.3–36.8; O2SAT 92–96
[2023-02-16] MEDS: ALBUTEROL SULFATE NEB 2.5 MG/3 ML INH INHALATION ×4 (02:22→20:01)
[2023-02-16] MEDS: IPRATROPIUM BR 0.02% INH SOLN 0.5 MG/2.5 ML VIAL INHALATION ×4 (02:22→20:01)
[2023-02-16] MEDS: CARBIDOPA/LEVODOPA 25/100 MG TABLET 4 TABLET PO ×3 (05:55→20:50)
[2023-02-16] MEDS: methylPREDNISolone SOD SUCC 125 MG VIAL 60 MG IV PUSH ×2 (05:55→12:41)
[2023-02-16] MEDS: ATORVASTATIN 40 MG TABLET PO (08:51)
[2023-02-16] MEDS: ENOXAPARIN 40 MG/0.4 ML SYRINGE SUB-Q (08:52)
[2023-02-16] MEDS: ASPIRIN 81 MG ENTERIC TABLET PO (08:52)
--- NOTE | 2023-02-16 16:01 | PM.IMPN ---
Progress Note: A&P Assessment and Plan (1) COPD exacerbation: Code(s): J44.1 - Chronic obstructive pulmonary disease with (acute) exacerbation Status: Acute (2) Hypoxemia: Code(s): R09.02 - Hypoxemia Status: Acute (3) Obstructive sleep apnea on CPAP: Code(s): G47.33 - Obstructive sleep apnea (adult) (pediatric); Z99.89 - Dependence on other enabling machines and devices Status: Acute (4) Uncontrolled hypertension: Code(s): I10 - Essential (primary) hypertension Status: Acute (5) Essential hypertension: Code(s): I10 - Essential (primary) hypertension Status: Acute (6) Parkinsons disease: Code(s): G20 - Parkinson's disease Status: Acute Plan COPD/ATHMA exacerbation, hypoxemia, atypical pneumonia Patient has severe cough with scant phlegm for 3 days, getting worse gradually Patient denies history of COPD or asthma. Patient has severe wheezing bilaterally, tachypnea X-ray shows interstitial changes Possible atypical pneumonia that resulted COPD exacerbation Start Atrovent q.6 hours scheduled, albuterol nebulizer Q 4 as needed Started methylprednisolone 60 mg q.6 hours IV in the ED, will continue Start O2 therapy, titrate to keep pulse ox above 92 started Levaquin IV 02/16 Consult pulmonology for additional treatment 02/16, dyspnea resolved, scattered wheezing, still has some cough, with scant phlegm, will decrease methylprednisolone to 40 mg IV q.8 hour, continue nebulizers Hyperlipidemia Continue Lipitor 40 mg daily p.o. Hypertension Continue hydrochlorothiazide 12.5 mg daily p.o., is) 10 mg daily p.o. Parkinson disease Continue Sinemet 25/100 1 tablet cases are scheduled DVT prophylaxis Lovenox 4 mg daily subQ Subjective Date/time seen: 02/16/23 16:01 Interval history: I saw exam patient today. Patient feels dyspnea improved significantly, still has some cough scant phlegm, patient denies chest pain, abdomen pain, nausea vomiting diarrhea Exam Narrative: GENERAL: Pleasant, in no acute distress. Well-nourished. - EYES: EOMI. Anicteric. - HENT: Moist mucous membranes. - LUNGS scattered wheezing, improve significantly, dyspnea resolved, rhonchi, or rales. - CARDIOVASCULAR: Regular rate and rhythm. No murmur. No JVD. - ABDOMEN: Soft, non-tender and non-distended. No palpable masses. - EXTREMITIES: No edema. Peripheral pulses 2+. Non-tender. - NEUROLOGIC: No focal neurological deficits. CN II-XII grossly intact. - PSYCHIATRIC: Awake, Alert and oriented x 3. Appropriate mood and affect. - SKIN: No rashes or lesions. Warm. - LYMPH: No cervical lymphadenopathy. Objective Data Vital Signs Vital Signs: Vital Signs - 24 hr 02/15/23 16:16 02/15/23 21:12 02/15/23 21:12 Temperature Pulse Rate 88 90 Respiratory Rate 18 18 Blood Pressure Pulse Oximetry 94 Oxygen Delivery Nasal Cannula Oxygen Flow Rate 2 Fraction of Inspired Oxygen 02/15/23 20:00 02/15/23 22:00 02/16/23 02:24 Temperature 97.9 F Pulse Rate 82 92 Respiratory Rate 18 18 Blood Pressure 125/66 Pulse Oximetry 94 94 Oxygen Delivery Nasal Cannula Oxygen Flow Rate 2 Fraction of Inspired Oxygen 02/15/23 20:00 02/16/23 00:00 02/16/23 04:00 Temperature Pulse Rate 97 87 94 Respiratory Rate Blood Pressure Pulse Oximetry Oxygen Delivery Oxygen Flow Rate Fraction of Inspired Oxygen 02/16/23 06:00 02/16/23 08:01 02/16/23 08:01 Temperature 97.9 F Pulse Rate 99 86 Respiratory Rate 22 H 18 Blood Pressure 153/74 H Pulse Oximetry 92 94 Oxygen Delivery Nasal Cannula Oxygen Flow Rate 2 Fraction of Inspired Oxygen 28 02/16/23 08:18 02/16/23 08:00 02/16/23 08:00 Temperature Pulse Rate 87 81 Respiratory Rate 18 Blood Pressure Pulse Oximetry 94 Oxygen Delivery Nasal Cannula Oxygen Flow Rate 2 Fraction of Inspired Oxygen 02/16/23 13:50 02/16/23 14:05 02/16/23 12
--- NOTE | 2023-02-16 16:02 | PM.CNPUL ---
Assessment and Plan Assessment and plan (1) Acute respiratory failure with hypoxemia: Code(s): J96.01 - Acute respiratory failure with hypoxia Status: Acute Assessment and Plan: Today saturation was 86% on room air, was treated by EMS prior to emergency department with Decadron; O2, IV solumedrol, bronchodilators; patient normally is not on oxygen at home. He requires 2 L/min to maintain saturation > 90%. He had wheezing noted on exam Feb 08 without symptoms, routine office visit; He started albuterol, followed by increased cough, shortness of breath; CXR showed no infiltrate. He has possible interstitial edema, but no fever, sputum production sore throat or GI symptoms. His swabs for RSV, influenza and COVID are negative. I agree with continuing of his IV Solu-Medrol, bronchodilators albuterol and ipratropium, and will check a respiratory pathogen panel which is extensive, may be helpful if he does not improve and we need to understand what pathogen is causing his symptoms. He has a RBBB, no history of heart failure. He may require intermittent diuretics if he develops increased edema. He was recently taken off HCTZ with orthostatic hypotension. Hx of PE hx of CHEMA from portable sleep test 2019, AHI 32, 65% lonny; patient says he does not have CHEMA and is not on PAP. Parkinson's - he says he does not aspirate. No difficulty swallowing. Parkinson's is associated with orthostatic hypotension, sleep apnea. History of Present Illness History of Present Illness Consult date: 02/16/23 Requesting physician: Elizabeth Farah MD Chief complaint: COPD Exacerbation/ Hypoxia Narrative: Patient was seen Feb 16 at 16:30 Room 315. ,Yareli, is at bedside, helps with the history. NEW: Joseph Guardado is a 72-year-old man, smoked only 2 years, decades ago, has Parkinson disease on Sinemet which is followed by a new neurologist at [facility]. He does not have recurrent lung infections, denies history fo COPD, asthma, pneumonia, and does not take medications for these conditions. Last week Feb 08, he had a routine visit with Dr Maldonado. At the visit, the patient had wheezing on exam but was asymptomatic. Dr Maldonado prescribed an albuterol inhaler which helped him a little, maybe an hour at a time. Over the next few days, cough became worse, more shortness of breath, some sputum, no GI issues, still able to eat and drink. He does not have a sore throat, no rash. His adult daughters have had respiraotry symptoms ove rthe last 2 weeks, and he has seen them at [facility] and eaten together. Today he was really short of breath, could not catch his breath, came to the ER with room air saturation 86%, increased respiratory rate, feeling worse. He had a negative influenza, RSV and COVID testing. CXR shows possible minimal basilar interstitial edema, suspected COPD. The patient worked at the [employer] for many years, quit in 2015. He had exposure to asbestos. Patient sees a aged or disabled carer; about a month ago was told to wear compression socks to help minimize edema. He also stopped his hydrochlorothiazide because his blood pressure was low. He had orthostatic changes. This is likely due to his Parkinson's disease.? ?? The patient had physical therapy for Parkinson's disease at the [facility] facility, was able to walk [phone] feet, several months ago. He is a bit slow with Parkinson's but is more ambulatory with the therapy. PMH: Parkinson's Disease; RBBB, hx of PE, hx of syncopal event 2021, hypertension with recent discontinuation of HCTZ due to low BP, lower extremity edema managed with support hose over a the last month, chart history of CHEMA DATA * 02/15/23 CXR - Questionable minimal bibasilar interstitial edema. Suspected COPD. * 02/16/2023 WBC 9.5, hemoglobin 15.2, hematocrit 48.9%, platelets 206. Sodium 138 potassium 4.2 chloride 101 carbon dioxide 31 mildly elevated. BUN 17 creatinine 0.7
[2023-02-16] MEDS: HYDROcodone/acetaminophen (*CRX) 5-325 MG TABLET 1 TAB PO (20:49)
[2023-02-16] MEDS: methylPREDNISolone SOD SUCC 40 MG VIAL IV PUSH (20:50)
[2023-02-17] VITALS (12 sets, daily range): BP systolic 124–130; BP diastolic 55–71; PULSE 73–94; RESP 18–20; TEMP 36.2–36.8; O2SAT 93–98
[2023-02-17] MEDS: ALBUTEROL SULFATE NEB 2.5 MG/3 ML INH INHALATION ×4 (02:28→20:35)
[2023-02-17] MEDS: IPRATROPIUM BR 0.02% INH SOLN 0.5 MG/2.5 ML VIAL INHALATION ×4 (02:28→20:36)
[2023-02-17] MEDS: CARBIDOPA/LEVODOPA 25/100 MG TABLET 4 TABLET PO ×3 (05:56→20:44)
[2023-02-17] MEDS: methylPREDNISolone SOD SUCC 40 MG VIAL IV PUSH ×3 (05:57→20:44)
[2023-02-17] MEDS: ASPIRIN 81 MG ENTERIC TABLET PO (08:22)
[2023-02-17] MEDS: ATORVASTATIN 40 MG TABLET PO (08:22)
[2023-02-17] MEDS: ENOXAPARIN 40 MG/0.4 ML SYRINGE SUB-Q (08:22)
--- NOTE | 2023-02-17 10:00 | PM.IMPN ---
Progress Note: A&P Assessment and Plan (1) COPD exacerbation: Code(s): J44.1 - Chronic obstructive pulmonary disease with (acute) exacerbation Status: Acute (2) Hypoxemia: Code(s): R09.02 - Hypoxemia Status: Acute (3) Obstructive sleep apnea on CPAP: Code(s): G47.33 - Obstructive sleep apnea (adult) (pediatric); Z99.89 - Dependence on other enabling machines and devices Status: Acute (4) Uncontrolled hypertension: Code(s): I10 - Essential (primary) hypertension Status: Acute (5) Essential hypertension: Code(s): I10 - Essential (primary) hypertension Status: Acute (6) Parkinsons disease: Code(s): G20 - Parkinson's disease Status: Acute Plan COPD/ATHMA exacerbation, hypoxemia, atypical pneumonia Patient has severe cough with scant phlegm for 3 days, getting worse gradually Patient denies history of COPD or asthma. Patient has severe wheezing bilaterally, tachypnea X-ray shows interstitial changes echo Left ventricular systolic function is normal, estimated at 65-70%.The left ventricular diastolic function is grade I diastolic dysfunction. Possible atypical pneumonia that resulted COPD exacerbation Start Atrovent q.6 hours scheduled, albuterol nebulizer Q 4 as needed Started methylprednisolone 60 mg q.6 hours IV in the ED, will continue Start O2 therapy, titrate to keep pulse ox above 92 started Levaquin IV 02/16 Consult pulmonology for additional treatment 02/16, dyspnea resolved, scattered wheezing, still has some cough, with scant phlegm, will decrease methylprednisolone to 40 mg IV q.8 hour, continue nebulizers 02/17: Continue to improve, has some cough. Continue current medication, appreciate pulmonary consultation, Hyperlipidemia Continue Lipitor 40 mg daily p.o. Hypertension Continue hydrochlorothiazide 12.5 mg daily p.o., is) 10 mg daily p.o. Parkinson disease Continue Sinemet 25/100 1 tablet cases are scheduled DVT prophylaxis Lovenox 4 mg daily subQ May discharge patient tomorrow if patient condition continues to improve Subjective Date/time seen: 02/17/23 10:00 Interval history: I saw exam patient today. Patient feels dyspnea improved significantly, still has some cough scant phlegm, patient denies chest pain, abdomen pain, nausea vomiting diarrhea Exam Narrative: GENERAL: Pleasant, in no acute distress. Well-nourished. - EYES: EOMI. Anicteric. - HENT: Moist mucous membranes. - LUNGS scattered wheezing, improve significantly, dyspnea resolved, rhonchi, or rales. - CARDIOVASCULAR: Regular rate and rhythm. No murmur. No JVD. - ABDOMEN: Soft, non-tender and non-distended. No palpable masses. - EXTREMITIES: No edema. Peripheral pulses 2+. Non-tender. - NEUROLOGIC: No focal neurological deficits. CN II-XII grossly intact. - PSYCHIATRIC: Awake, Alert and oriented x 3. Appropriate mood and affect. - SKIN: No rashes or lesions. Warm. - LYMPH: No cervical lymphadenopathy. Objective Data Vital Signs Vital Signs: Vital Signs - 24 hr 02/16/23 13:50 02/16/23 14:05 02/16/23 12:00 Temperature Pulse Rate 94 98 105 H Respiratory Rate 18 18 Blood Pressure Pulse Oximetry Oxygen Delivery Oxygen Flow Rate 02/16/23 14:00 02/16/23 16:00 02/16/23 20:02 Temperature 97.3 F L Pulse Rate 96 90 Respiratory Rate 16 Blood Pressure 130/59 L Pulse Oximetry 95 96 Oxygen Delivery Nasal Cannula Oxygen Flow Rate 2 02/16/23 20:02 02/16/23 22:00 02/16/23 20:00 Temperature 98.2 F Pulse Rate 80 93 Respiratory Rate 18 20 Blood Pressure 126/66 Pulse Oximetry 95 93 Oxygen Delivery Nasal Cannula Oxygen Flow Rate 1 02/17/23 02:28 02/16/23 20:15 02/17/23 06:00 Temperature 98.2 F Pulse Rate 75 77 88 Respiratory Rate 18 18 20 Blood Pressure 130/71 Pulse Oximetry 95 Oxygen Delivery Oxygen Flow Rate 02/17/23 02:40 02/17/23 08:31 02/17/23 08:31 Temperature Pulse
--- NOTE | 2023-02-17 18:38 | PM.PNPUL ---
Progress Note: A&P Assessment and Plan (1) Acute respiratory failure with hypoxemia: Code(s): J96.01 - Acute respiratory failure with hypoxia Status: Acute Assessment and Plan: Resolved; now on room air. On admission, saturation was 86% on room air, was treated by EMS prior to emergency department with Decadron; O2, IV solumedrol, bronchodilators; patient normally is not on oxygen at home. He had wheezing noted on exam Feb 08 without symptoms, routine office visit; He started albuterol, followed by increased cough, shortness of breath; CXR showed no infiltrate. He has possible interstitial edema,? but no fever, sputum production sore throat or GI symptoms.? His swabs for RSV, influenza and COVID are negative. Can transition IV solumedrol to prednisone, continue bronchodilators albuterol and ipratropium; Extended respiratory pathogen panel has not returned. He has a RBBB, no history of heart failure. He may require intermittent diuretics if he develops increased edema. He was recently taken off HCTZ with orthostatic hypotension. Hx of PE hx of CHEMA from portable sleep test 2018, AHI 32, 65% lonny; patient says he does not have CHEMA and is not on PAP. Parkinson's -? he says he does not aspirate.? No difficulty swallowing.? Parkinson's is associated with orthostatic hypotension, sleep apnea. Subjective Date/time seen: 02/17/23 18:38 Interval history: hospital follow up 02/17 Feeling much better. Room air. Family at bedside, and son. He is not coughing as much, less short of breath. He is sleeping as well as expected in a hospital. Appetite is ok. 02/16/23: Joseph Guardado is a 72-year-old man, smoked only 2 years,? decades ago, has Parkinson disease on Sinemet which is followed by a new neurologist at [facility]. 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 Asbestos exposure. He does not have recurrent lung infections, denies history pf COPD, asthma, or recurrent pneumonia, and does not take medications for these conditions.? Last week Feb 08, he had a routine visit with Dr Maldonado.? At the visit, the patient had wheezing on exam but was asymptomatic. Dr Maldonado prescribed an albuterol inhaler which helped him a little, maybe an hour at a time.? Over the next few days, cough became worse, more shortness of breath, some sputum, no GI issues, still able to eat and drink. He does not have a sore throat, no rash. His adult daughters have had respiratory symptoms over the last 2 weeks, and he has been exposed to them at [employer] and having meals together. Today he was really short of breath, could not catch his breath, came to the ER with room air saturation 86%, increased respiratory rate, feeling worse. He had a negative influenza, RSV and COVID testing. CXR shows? possible minimal basilar interstitial edema, suspected COPD. ? The patient worked at the [employer] for many years, quit in 2015. ? He had exposure to asbestos. Patient sees a clinical engineering director; about a month ago was told to wear compression socks to help minimize edema.? He also stopped his hydrochlorothiazide because his blood pressure was low.? He had orthostatic changes.? This is likely due to his Parkinson's disease.? ?? The patient? had physical therapy for Parkinson's disease at the [facility] facility, was able to walk [id number] feet, several months ago. He is a bit slow with Parkinson's but is more ambulatory with the therapy. PMH: Parkinson's Disease; RBBB, hx of PE, hx of syncopal event 2021, hypertension with recent discontinuation of HCTZ due to low BP, lower extremity edema managed with support hose over a the last month, chart history of CHEMA DATA * 02/15/23 CXR -?Questionable minimal bibasilar interstitial edema. Suspected COPD. Review of Systems Review of Systems: All systems reviewed & are unremarkable except as noted in HPI and below Exam Narrative: GEN: Alert, oriented, not in distress. He has a resting tremor, right arm and leg. HEENT: pupils are equal, EOMI, symmetrical face; ora
[2023-02-18] MEDS: ALBUTEROL SULFATE NEB 2.5 MG/3 ML INH INHALATION ×2 (02:21→08:15)
[2023-02-18] MEDS: IPRATROPIUM BR 0.02% INH SOLN 0.5 MG/2.5 ML VIAL INHALATION ×2 (02:21→08:15)
[2023-02-18 02:22] VITALS: PULSE 90; RESP 18
[2023-02-18 02:35] VITALS: PULSE 86; RESP 18
[2023-02-18] MEDS: methylPREDNISolone SOD SUCC 40 MG VIAL IV PUSH (05:00)
[2023-02-18] MEDS: CARBIDOPA/LEVODOPA 25/100 MG TABLET 4 TABLET PO (05:00)
[2023-02-18 05:12] VITALS: BP 126/67; PULSE 80; RESP 16; TEMP 36.2; O2SAT 97
[2023-02-18 08:15] VITALS: PULSE 74; RESP 18
[2023-02-18 08:18] VITALS: O2SAT 94
[2023-02-18 08:28] VITALS: PULSE 76; RESP 18
[2023-02-18] MEDS: ATORVASTATIN 40 MG TABLET PO (09:02)
[2023-02-18] MEDS: ASPIRIN 81 MG ENTERIC TABLET PO (09:02)
[2023-02-18] MEDS: ENOXAPARIN 40 MG/0.4 ML SYRINGE SUB-Q (09:05)
--- NOTE | 2023-02-18 09:23 | PM.IMPN ---
Progress Note: A&P Assessment and Plan (1) COPD exacerbation: Code(s): J44.1 - Chronic obstructive pulmonary disease with (acute) exacerbation Status: Acute (2) Hypoxemia: Code(s): R09.02 - Hypoxemia Status: Acute (3) Obstructive sleep apnea on CPAP: Code(s): G47.33 - Obstructive sleep apnea (adult) (pediatric); Z99.89 - Dependence on other enabling machines and devices Status: Acute (4) Uncontrolled hypertension: Code(s): I10 - Essential (primary) hypertension Status: Acute (5) Essential hypertension: Code(s): I10 - Essential (primary) hypertension Status: Acute (6) Parkinsons disease: Code(s): G20 - Parkinson's disease Status: Acute Plan COPD/ATHMA exacerbation, hypoxemia, atypical pneumonia Patient has severe cough with scant phlegm for 3 days, getting worse gradually Patient denies history of COPD or asthma. Patient has severe wheezing bilaterally, tachypnea X-ray shows interstitial changes echo Left ventricular systolic function is normal, estimated at 65-70%.The left ventricular diastolic function is grade I diastolic dysfunction. Possible atypical pneumonia that resulted COPD exacerbation Start Atrovent q.6 hours scheduled, albuterol nebulizer Q 4 as needed Started methylprednisolone 60 mg q.6 hours IV in the ED, will continue Start O2 therapy, titrate to keep pulse ox above 92 started Levaquin IV 02/16 Consult pulmonology for additional treatment 02/16, dyspnea resolved, scattered wheezing, still has some cough, with scant phlegm, will decrease methylprednisolone to 40 mg IV q.8 hour, continue nebulizers 02/17: Continue to improve, has some cough. Continue current medication, appreciate pulmonary consultation, 02/18. Patient has no wheezing, denies shortness breath, no O2 desaturation, pulse ox 97 on room air. Change to oral Levaquin for 4 more days, continue Atrovent, albuterol inhaler p.r.n. and prednisone tapering does per private duty nurse recommendation Hyperlipidemia Continue Lipitor 40 mg daily p.o. Hypertension dc hydrochlorothiazide 12.5 mg daily p.o., patient cannot tolerate because of hypotension Parkinson disease Continue Sinemet 25/100 1 tablet cases are scheduled Patient follow-up with neurologist atoffice Discharge patient today, approved by private duty nurse Subjective Date/time seen: 02/18/23 09:23 Interval history: I saw and examined the patient today, patient feels better today, denies shortness breath, has mild cough without phlegm. Patient ambulates without dyspnea. Patient denies chest pain, abdomen pain, headache, focal weakness. Labs reviewed, patient is afebrile, hemodynamically stable Exam Narrative: GENERAL: Pleasant, in no acute distress. Well-nourished. - EYES: EOMI. Anicteric. - HENT: Moist mucous membranes. - LUNGS lungs clear bilaterally,, rhonchi, or rales. - CARDIOVASCULAR: Regular rate and rhythm. No murmur. No JVD. - ABDOMEN: Soft, non-tender and non-distended. No palpable masses. - EXTREMITIES: No edema. Peripheral pulses 2+. Non-tender. - NEUROLOGIC: No focal neurological deficits. CN II-XII grossly intact. - PSYCHIATRIC: Awake, Alert and oriented x 3. Appropriate mood and affect. - SKIN: No rashes or lesions. Warm. - LYMPH: No cervical lymphadenopathy. Objective Data Vital Signs Vital Signs: Vital Signs - 24 hr 02/17/23 14:27 02/17/23 15:07 02/17/23 14:00 Temperature 97.2 F L Pulse Rate 90 90 94 Respiratory Rate 18 18 18 Blood Pressure 128/55 L Pulse Oximetry 94 Oxygen Delivery Fraction of Inspired Oxygen 02/17/23 16:30 02/17/23 20:36 02/17/23 20:47 Temperature Pulse Rate 87 86 Respiratory Rate 18 18 Blood Pressure Pulse Oximetry 98 Oxygen Delivery Room Air Fraction of Inspired Oxygen 02/17/23 20:36 02/17/23 20:00 02/18/23 02:22 Temperature 97.6 F Pulse Rate 90 86 90 Respiratory Rate 18 18 18 Blood Pressure 124/59 L Pulse
--- NOTE | 2023-02-18 09:26 | PM.DS ---
DS: Admitting Diagnosis Discharge Date 02/18/23 Admitting Diagnosis (1) COPD exacerbation: ?Code(s): J44.1 - Chronic obstructive pulmonary disease with (acute) exacerbation ?Status:?Acute (2) Hypoxemia: ?Code(s): R09.02 - Hypoxemia ?Status:?Acute (3) Obstructive sleep apnea on CPAP: ?Code(s): G47.33 - Obstructive sleep apnea (adult) (pediatric); Z99.89 - Dependence on other enabling machines and devices ?Status:?Acute (4) Uncontrolled hypertension: ?Code(s): I10 - Essential (primary) hypertension ?Status:?Acute (5) Essential hypertension: ?Code(s): I10 - Essential (primary) hypertension ?Status:?Acute (6) Parkinsons disease: ?Code(s): G20 - Parkinson's disease ?Status:?Acute DS: Discharge Diagnosis Discharge Diagnosis (1) COPD exacerbation: Code(s): J44.1 - Chronic obstructive pulmonary disease with (acute) exacerbation Status: Acute (2) Hypoxemia: Code(s): R09.02 - Hypoxemia Status: Acute (3) Obstructive sleep apnea on CPAP: Code(s): G47.33 - Obstructive sleep apnea (adult) (pediatric); Z99.89 - Dependence on other enabling machines and devices Status: Acute (4) Uncontrolled hypertension: Code(s): I10 - Essential (primary) hypertension Status: Acute (5) Essential hypertension: Code(s): I10 - Essential (primary) hypertension Status: Acute (6) Parkinsons disease: Code(s): G20 - Parkinson's disease Status: Acute DS: Summary Hospital Course Hospital Course: 72 years old gentleman with history of COPD, present ED with a chief complaint of cough and shortness breath.? Patient has been having cough and wheezing in past 1 week, is getting worse since Wednesday.? Patient visited primary care doctor,. patient has been using? albuterol.? Pressure shortness is getting worse gradually, patient has worsening cough, denies fever, chills, abdominal pain, nausea vomiting diarrhea.??CT of neck shows? airways are widely patent throughout with no evident etiology for reported stridor..? COVID 19 and flu test negative also.? Patient also found have hypoxemia.? patient received 10 mg Decadron and methylprednisone 60 mg Q 6 hour in the ED, patient still has significant dyspnea.? We admited patient for further evaluation and treatment Following med issues have been addressed during hospitalization COPD/ATHMA exacerbation, hypoxemia, atypical pneumonia Patient has severe cough with scant phlegm for 3 days, getting worse gradually Patient denies history of COPD or asthma. Patient has severe wheezing bilaterally, tachypnea X-ray shows interstitial changes echo Left ventricular systolic function is normal, estimated at 65-70%.The left ventricular diastolic function is grade I diastolic dysfunction. Possible atypical pneumonia that resulted COPD exacerbation Started Atrovent q.6 hours scheduled, albuterol nebulizer Q 4 as needed Started methylprednisolone 60 mg q.6 hours IV in the ED, will continue Start O2 therapy, titrate to keep pulse ox above 92 started Levaquin IV 02/16 Consult pulmonology for evaluation and treatment 02/16, dyspnea resolved, scattered wheezing, still has some cough, with scant phlegm, will decrease methylprednisolone to 40 mg IV q.8 hour, continue nebulizers 02/17: Continue to improve, has some cough. Continue current medication, appreciate pulmonary consultation, 02/18. Patient has no wheezing, denies shortness breath, no O2 desaturation, pulse ox 97 on room air. Change to oral Levaquin for 4 more days, continue Atrovent, albuterol nebs p.r.n. and prednisone tapering does per media consultant recommendation Hyperlipidemia Continue Lipitor 40 mg daily p.o. Hypertension dc hydrochlorothiazide 12.5 mg daily p.o., patient cannot tolerate because of hypotension Parkinson disease Continue Sinemet 25/100 1 tablet cases are scheduled Patient follow-up with neurologist in the office Dischar
--- NOTE | 2023-02-18 11:22 | PM.PNPUL ---
Progress Note: A&P Assessment and Plan (1) Acute respiratory failure with hypoxemia: Code(s): J96.01 - Acute respiratory failure with hypoxia Status: Acute Assessment and Plan: Better. Now on room air. On admission, saturation was 86% on room air, was treated by EMS prior to emergency department with Decadron; O2, IV solumedrol, bronchodilators; patient normally is not on oxygen at home. He is on room air, sat is 94% on day of discharge. He had wheezing noted on exam Dec without symptoms, routine office visit; He started albuterol, followed by increased cough, shortness of breath; CXR showed no infiltrate. He has possible interstitial edema,? but no fever, sputum production sore throat or GI symptoms.? His swabs for RSV, influenza and COVID are negative. - Continue bronchodilators albuterol and ipratropium; he has a nebulizer that he got in 2018 when he had a PE. Extended respiratory pathogen panel has not returned, will see when it arrives. He has a RBBB, no history of heart failure. He may require intermittent diuretics if he develops increased edema. He was recently taken off HCTZ with orthostatic hypotension. Hx of PE hx of CHEMA from portable sleep test 2019, AHI 32, 65% lonny; patient says he does not have CHEMA and is not on PAP. 05/24/2018 - CPAP titration - no optimal pressure, lowest sat 62%, treatment emergenet centrals, PLM with limb movements index 57.6. Parkinson's -? he says he does not aspirate.? No difficulty swallowing.? Parkinson's is associated with orthostatic hypotension, sleep apnea. Plan plan: Change to prednisone 40 mg BID x 2 days, prednisone 30 mg BID x 2 days, 40 mg daily x 2 days, 30 mg x 2 days 20 mg x 2 days 10 mg x 2 days then stop. Send albuterol 2.5 mg and ipratropium 0.02% solution #60 so he can use BID for a month Appointment with pulmonary in 2-3 weeks, he has to call for appt, . He will need PFTS, split night sleep study, alpha-1 testing and follow up regarding his respiratory panel. I will get his echo results from his dental assistant instructor at [facility], Dr Taqueria Dee before his office visit. Discussed with Dr Farah. Subjective Date/time seen: 02/18/23 11:22 Interval history: hospital follow up : 02/18 : at bedside. He feels a little more wheezy. Patient is dressed, ready to go home. On room air, saturation is 94%. Respiratory panel is pending. He is on soulmedrol 40 mg IV Q 8 hour, 120 mg which is = 150 mg prednisone. I recommend prednisone 40 mg BID x 2 days, prednisone 30 mg BID x 2 days, 40 mg daily x 2 days, 30 mg x 2 days 20 mg x 2 days 10 mg x 2 days then stop. He needs albuterol and ipratropium solution for his nebulizer 60 doses to use BID p.r.n. I will see him in the clinic in 2-3 weeks. He will get PFTS and alpha-1 testing. 02/17 : Feeling much better. Room air. Family at bedside, and son. He is not coughing as much, less short of breath. He is sleeping as well as expected in a hospital. Appetite is ok. 02/16/23: Joseph Guardado is a 72-year-old man, smoked only 2 years,? decades ago, has Parkinson disease on Sinemet which is followed by a new neurologist at [facility]. Worked at [employer] in [place]. Asbestos exposure. He does not have recurrent lung infections, denies history pf COPD, asthma, or recurrent pneumonia, and does not take medications for these conditions.? Last week Feb 08, he had a routine visit with Dr Maldonado.? At the visit, the patient had wheezing on exam but was asymptomatic. Dr Maldonado prescribed an albuterol inhaler which helped him a little, maybe an hour at a time.? Over the next few days, cough bec
--- NOTE | 2023-02-18 14:01 | PCCCNOTE ---
On 02/18/23, the student, [Batsheva Houston], provided care and completed [facility] documentation on this patient. I have reviewed the student's documentation and agree with the findings.
[2023-02-21 14:51] LABS: Adenovirus DNA Not Detected (Not Detected); Chlamydophila pneumoniae Not Detected (Not Detected); Coronavirus 229E Not Detected (Not Detected); Coronavirus HKU1 Not Detected (Not Detected); Coronavirus NL63 Not Detected (Not Detected); Coronavirus OC43 Not Detected (Not Detected); Human Metapneumovirus Not Detected (Not Detected); Human Parainfluenza Virus 1 Not Detected (Not Detected); Human Parainfluenza Virus 2 Not Detected (Not Detected); Human Parainfluenza Virus 3 Not Detected (Not Detected); Human Parainfluenza Virus 4 Not Detected (Not Detected); Human RSV B Not Detected (Not Detected); Influenza A Not Detected (Not Detected); Influenza B Not Detected (Not Detected); Mycoplasma pneumoniae Not Detected (Not Detected); Rhinovirus/Enterovirus Not Detected (Not Detected)
== END 2023-02-18 12:32 | disposition home or self-care (01) | DRG 190 ==
LOC: ANHED 07:48 → ANH3MEDSUR 11:47
PROVIDERS: Emergency Medicine; Internal Medicine Critical Care Medicine; Admitting Provider Hospitalist; Emergency Provider Emergency Medicine; PCP Internal Medicine; Visit Provider Hospitalist
DX: J44.1 Chronic obstructive pulmonary disease with (acute) exacerbation (principal); J18.9 Pneumonia, unspecified organism; J96.01 Acute respiratory failure with hypoxia; J44.0 Chronic obstructive pulmonary disease with (acute) lower respiratory infection; G47.33 Obstructive sleep apnea (adult) (pediatric); I10 Essential (primary) hypertension; G20.A1 Parkinson's disease without dyskinesia, without mention of fluctuations; Z20.822 Contact with and (suspected) exposure to COVID-19; E78.5 Hyperlipidemia, unspecified; Z96.653 Presence of artificial knee joint, bilateral; M19.90 Unspecified osteoarthritis, unspecified site; Z77.090 Contact with and (suspected) exposure to asbestos; Z79.82 Long term (current) use of aspirin; Z86.711 Personal history of pulmonary embolism; Z87.891 Personal history of nicotine dependence
CPT/HCPCS: 36415; 70491; 71045; 80053; 83880; 85025; 85610; 85730; 87633; 87636; 93005; 94640; 96372; 96374; 96375; 96376; 99285; A9270; G0378; J1100; J1650; J2920; J2930; Q9967

== ENCOUNTER 2023-03-06 15:23 | Inpatient (IN) | payer MEDICARE, SELFPAY ==
[2023-03-06] VITALS (21 sets, daily range): BP systolic 127–170; BP diastolic 61–93; PULSE 81–100; RESP 16–28; TEMP 36.1–36.6; O2SAT 92–100; BMI 44.2
--- NOTE | ~2023-03-06 | CT_ITS ---
Clinical Indication: Pulmonary embolus CT Scan of the Chest with Contrast: Technique: Contiguous sections were acquired throughout the chest after intravenous administration of 200 cc of Omnipaque 350. Dose reduction technique was used on this scan by utilizing automated expos ure control and iterative reconstruction technique. The dose-length product (DLP) was 2247.92 mGy-cm. Findings: There is no evidence of any significant mediastinal, hilar or axillary lymphadenopathy. Evaluation fo r pulmonary embolus is markedly limited related to the contrast bolus, despite bolus administration. No definite large central pulmonary embolus seen. There is no evidence of aortic dissection or aneury sm. There is no evidence of pleural or pericardial effusion. The lungs are clear. No pulmonary nodules or infiltrates are noted. Images through the upper abdomen reveal no abnormalities. Impression: No large central pulmonary embolus identified. Evaluation for smaller, more peripheral pulmonary embo li is markedly limited due to timing of the contrast bolus, despite bolus readministration. VQ scan c ould be considered for additional imaging evaluation, as indicated. Clear lungs. Reviewed, dictated and finalized at location M. RMATION TECHNOLOGY MANAGER Impression: No large central pulmonary embolus identified. Evaluation for smaller, more per ipheral pulmonary emboli is markedly limited due to timing of the contrast bolu s, despite bolus readministration. VQ scan could be considered for additional i maging evaluation, as indicated. Clear lungs.
--- NOTE | ~2023-03-06 | XR_ITS ---
EXAMINATION: XR barium swallow modified DATE: 03/08/2023 13:27 INDICATION: Cough. TECHNIQUE: The patient was given barium-containing material of multiple consistencies to swallow by t sendy speech pathologist while I performed fluoroscopy. Fluoroscopy exposure time was 1 5 minutes. The n umber of fluoroscopy images saved to the PACS was 1. Dose-area product was 2.102 Gy-cm^2. FINDINGS: There is minimal to trace vallecular residue and pyriform sinus residue. There is trace laryngeal pen etration. No aspiration. IMPRESSION: 1. Trace laryngeal penetration. No aspiration. 2. Please refer to the speech therapy report for recommendations. Reviewed, dictated and finalized at location A. F DESIGN BRANCH
--- NOTE | ~2023-03-06 | CT_ITS ---
CT scan of the Neck Technique: 2.5 mm axial scans were obtained through the neck without IV contrast initiation. Coronal and sagittal reconstructions of the neck were obtained. Dose reduction technique was used on this sca n by utilizing automated exposure control and iterative reconstruction technique. The dose-length pro duct (DLP) was 649.08 mGy-cm. Clinical History: Stridor COMPARISON: 02/15/2023 Findings: There is no evidence of any significant cervical lymphadenopathy. Several small, nonenlarged jugulo- digastric and posterior cervical lymph nodes are noted bilaterally. Parapharyngeal spaces appear norm al bilaterally. The parotid and submandibular glands appear normal. The pharyngeal mucosal spaces appear normal. No soft tissue masses are seen in the neck. The thyroid gland appears normal. Images of the lung apices reveal no abnormalities. There is extensi ve sinus disease involving the bilateral maxillary sinuses and bilateral ethmoid sinuses. There is ad ditional involvement in the left sphenoid sinus. Mastoid air cells are clear. Impression: Extensive sinus disease. No other significant findings. Reviewed, dictated and finalized at location . HER ADVISOR Impression: Extensive sinus disease. No other significant findings.
--- NOTE | ~2023-03-06 | US_ITS ---
EXAMINATION: US venous doppler [facility] DATE: 03/07/2023 18:11 INDICATION: Bilateral lower limb swelling TECHNIQUE: Smith scale images without and with compression and Doppler images of the bilateral lower e xtremity veins were obtained. COMPARISON: 11/09/2021 FINDINGS: The right common femoral vein, profunda femoral vein, femoral vein, popliteal vein, peroneal trunk, p osterior tibial veins, and greater saphenous vein are patent. The left common femoral vein, profunda femoral vein, femoral vein, popliteal vein, peroneal trunk, po sterior tibial veins, and greater saphenous vein are patent. IMPRESSION: 1. Patent bilateral lower extremity veins. No evidence of deep venous thrombosis. Reviewed, dictated and finalized at location F. E SOLUTIONS CONSULTANT IMPRESSION: 1. Patent bilateral lower extremity veins. No evidence of deep venous thrombosi s.
--- NOTE | ~2023-03-06 | XR_ITS ---
Portable chest x-ray Comparison: 02/15/2023 Clinical History: Shortness of breath Findings: Minimal central pulmonary venous congestive change. No consolidation or pleural effusion. Cardiomediastinal silhouette is stable. Bones and soft tissues are unremarkable. Impression: Mild central pulmonary venous congestive change. Reviewed, dictated and finalized at [facility]. NICS SYSTEM ENGINEER Impression: Mild central pulmonary venous congestive change.
--- NOTE | 2023-03-06 15:31 | ECG_ITS ---
Measurements Intervals Boaz Rate: 86 P: 67 HI: 194 QRS: 101 QRSD: 144 T: 19 QT: 381 QTc: 458 Interpretive Statements SINUS RHYTHM RIGHT AXIS DEVIATION RIGHT BUNDLE BRANCH BLOCK BASELINE ARTIFACT- I, II, III, AVL, AVF, V2-V3 ABNORMAL ECG COMPARED TO ECG 02/15/2023 06:35:18 NO SIGNIFICANT CHANGES Electronically Signed On 03-06-2023 16:57:33 [employer] by Dagoberto Pack D.O.
--- NOTE | 2023-03-06 15:46 | ED.GENADULT ---
HPI - General Adult General Chief complaint: Shortness of Breath/Dyspnea Stated complaint: SOB Time Seen by Provider: 03/06/23 15:44 Source: patient and family Mode of arrival: ambulatory Limitations: no limitations History of Present Illness HPI narrative: 72 YEARS OLD WHITE MALE CAME TO THE EMERGENCY ROOM BY PRIVATE CAR COMPLAINING OF GENERALIZED WHEEZING STARTED JANUARY 2023 WAS HOSPITALIZE ON FEBRUARY 15 FOR 3 DAYS AND THEN WAS DISCHARGED, AND PROGRESSIVELY GETTING WORSE. FINISH A COURSE OF STEROID 5 DAYS AGO THEN WHEEZING START COMING BACK UP AGAIN. PATIENT STARTED ON PREDNISONE BY HIS FAMILY PHYSICIAN TODAY 20 MG P.O. ONCE. PATIENT DENIES ANY FEVER, CHILLS, NAUSEA, VOMITING, CHEST PAIN, SHORTNESS OF BREATH. JUST WHEEZING. HISTORY OF HYPERLIPIDEMIA, PATIENT WAS SCHEDULED TO SEE THE COMMERCIAL OR INSTITUTIONAL CLEANER ON March. Related Data Home Medications Medication Instructions Recorded Confirmed aspirin 81 mg tablet,delayed 81 mg PO DAILY 06/20/21 02/15/23 release carbidopa 25 mg-levodopa 100 mg 4 tablet PO Q8H 07/23/21 02/15/23 tablet atorvastatin 40 mg tablet 40 mg PO DAILY 02/15/23 02/15/23 Allergies Allergy/AdvReac Type Severity Reaction Status Date / Time No Known Allergies Allergy Verified 03/06/23 15:44 Review of Systems Review of Systems: All systems reviewed & are unremarkable except as noted in HPI and below PMFSH Past Medical History Medical History Arthritis Hypertension Obstructive sleep apnea on CPAP Parkinsons disease Pulmonary embolism (2018) Surgical History Surgical History History of ankle surgery ORIF left ankle fracture. History of bilateral knee arthroplasty History of lumbar discectomy History of tonsillectomy Family History Family History Mother Hypertension Father Acute myocardial infarction Social History Social History Social History: Surrogate medical decision maker: Yareli Guardado, spouse. Code status: Full code. Years smoked: 2 Smoking status: Never smoker Tobacco type: cigarettes Smoking end date: 03/01/1967 Alcohol intake: never Substance use: never Substance use type: does not use Do You Feel Safe in your Home?: Yes Lack of Transportation: No Lack of Food: Never True Current Housing: I Have Housing Concerned About Future Housing: No Difficulty Paying Gas/Electric Bills: No Difficulty Paying for Meds: No Currently Unemployed: No Education: Don't Know Difficulty w/ Childcare or Family Care: No Living arrangements: with family Additional living arrangements comments: Lives with spouse [place] [facility] Spiritual care concerns: No Exam Narrative: GENERAL APPEARANCE: WELL-DEVELOPED, WELL-NOURISHED SKIN: NORMAL COLOR HEAD: NORMOCEPHALIC, NONTRAUMATIC EYES: CLEAR CONJUNCTIVA ENT: OROPHARYNX NORMAL, EARS NORMAL, NOSE NORMAL NECK: SUPPLE, NONTENDER CHEST AND RESPIRATORY: AIRWAY PATENT, NO RESPIRATORY DISTRESS, NO ACCESSORY MUSCLE USE, AUDIBLE WHEEZING, GENERALIZED FINDING AND COARSE WHEEZING BILATERALLY HEART: REGULAR RATE/RHYTHM ABDOMEN: SOFT, NONTENDER, NO ORGANOMEGALY, QUIET BOWEL SOUNDS VASCULAR: NORMAL PERIPHERAL PULSES, NORMAL CAPILLARY REFILL. MUSCULOSKELETAL: NORMAL RANGE OF MOTION, NONTENDER BACK NEUROLOGIC: ALERT AND ORIENTED ?3, LIFE UNDERWRITER IS NORMAL TESTED, NO GROSS MOTOR DEFICIT Course Consultations Consultation #1: DR. CARNES Date: 03/06/23 Time: 19:02 Vital Signs Vital signs: Vital Signs Temperature 36.4 C 03/06/23 15:
[2023-03-06 15:52] LABS: Basophils Percent Auto 0.3 % (0.2-1.2); Eosinophils Absolute Auto 0.2 K/mm3 (0-0.3); Eosinophils Percent Auto 2.2 % (0-4.4); Hematocrit 45.2 % (42.0-52.0); Hemoglobin 13.7 g/dL (14.0-18.0); Immature Granulocyte Absolute 0.03 K/mm3 (0.00-0.031); Immature Granulocyte Percent A 0.3 % (0-0.5); Lymphocytes Absolute Auto 0.68 K/mm3 (0.9-3.2); Lymphocytes Percent Auto 6.5 % (18.3-44.2); Mean Corpuscular HGB Conc 30.3 g/dl (32-36); Mean Corpuscular Hemoglobin 29.5 pg (26-34); Mean Corpuscular Volume 97.2 fl (80-100); Monocytes Absolute Auto 0.4 K/mm3 (0.1-0.6); Monocytes Percent Auto 3.9 % (2.6-8.5); Neutrophils Absolute Auto 9.1 K/mm3 (1.3-6.7); Neutrophils Percent Auto 86.8 % (45.5-73.1); Platelet Count Result 152 k/mm3 (150-375); Red Blood Count 4.65 M/mm3 (4.6-6.20); Red Cell Distribution Width 14.2 % (11.5-14.5); White Blood Count 10.5 K/mm3 (4.5-10.0)
[2023-03-06] MEDS: methylPREDNISolone SOD SUCC 125 MG VIAL IV PUSH (16:04)
[2023-03-06 16:13] LABS: Alanine Aminotransferase 6 U/L (6-50); Albumin Level 3.4 g/dL (3.5-5.1); Alkaline Phosphatase 84 U/L (38-126); Anion Gap 3 mmol/L (8-16); Aspartate Amino Transferase 23 U/L (17-59); Blood Urea Nitrogen 14 mg/dL (9-20); Calcium 8.7 mg/dL (8.4-10.2); Carbon Dioxide 34 mmol/L (22-30); Chloride 97 mmol/L (98-107); Estimated CRCL calculation 172 ml/min; Estimated Glomerular Filt Rate > 60; Glucose 120 mg/dL (65-110); Potassium 4.5 mmol/L (3.4-5.0); Sodium 134 mmol/L (137-145)
[2023-03-06] MEDS: ALBUTEROL SULFATE NEB 2.5 MG/3 ML INH 10 MG INHALATION (16:18)
[2023-03-06] MEDS: IPRATROPIUM BR 0.02% INH SOLN 0.5 MG/2.5 ML VIAL INHALATION ×2 (16:19→20:42)
[2023-03-06 16:23] LABS: D Dimer 0.43 ug/mL (<0.48)
[2023-03-06 16:37] LABS: Troponin I 0.035 ng/mL (0.000-0.034)
[2023-03-06 16:41] LABS: Influenza A QL RT-PCR Negative (Negative); Influenza B QL RT-PCR Negative (Negative); RSV RNA, RT-PCR Negative (Negative); SARS-CoV-2 RNA PCR Negative (Negative)
[2023-03-06 16:44] LABS: Alveolar/Arterial O2 Gradient 18.4 mmHg; Base Excess ABG 4.9 mEq/l (+/-2.0); Fractional Inspired Oxygen 28 %; HCO3 ABG 32.7 mEq/l (22.0-26.0); Oxygen Saturation ABG 97.6 % (95.0-100.0); Oxyhemoglobin 95.6 % THb (90.0-100.0); PO2 ABG 108.3 mmHg (80.0-100.0); PO2 FiO2 Ratio Arterial Blood 3.87 %; Total Hemoglobin 14.8 g/dL (12.0-18.0); pH ABG 7.341 (7.350-7.450)
[2023-03-06 16:49] LABS: Device NASAL CANNULA; Modified Allen's Test Pass; PCO2 ABG 61.8 mmHg (35.0-45.0); Site Drawn LEFT RADIAL
[2023-03-06 17:32] LABS: NT Pro B Type Natriuretic Pept 117 pg/mL (19.9-100)
[2023-03-06] MEDS: racEPINEPHrine 2.25% NEBU SOLN 0.5 ML VIAL.NEB INHALATION (17:52)
[2023-03-06] MEDS: ASPIRIN 81 MG CHEWABLE TABLET 324 MG PO (18:58)
[2023-03-06 19:18] LABS: Troponin I 0.026 ng/mL (0.000-0.034)
--- NOTE | 2023-03-06 19:27 | PC.NURSE ---
Assumed care of pt from DONG Calderón at this time. Pt back from CT and resting comfortably in bed. Assisted DONG Calderón with putting bipap back on pt.
--- NOTE | 2023-03-06 20:09 | PM.IMHP ---
H&P: HPI History of Present Illness Date/Time: 03/06/23 20:09 Chief Complaint: Shortness of breath Narrative: 72-year-old male with past medical history Parkinson's disease, essential hypertension, obstructive sleep apnea and pulmonary embolism who presented to the ER with increasing shortness of breath. The patient had been admitted the hospital in January of 2023 for cough and shortness of breath. He was treated for acute hypoxic respiratory failure and evaluated by pulmonology. The patient was sent home on a prednisone taper which she finished during the 1st week of March. He reported that his shortness of breath had improved since his prior hospitalization until the end of the steroid treatment at which time he began having increasing cough and his cough became productive of pink tinged sputum a instead of just clear sputum. He denies having any fevers or chills. He denies any orthopnea or paroxysmal nocturnal dyspnea. He has not noticed any increased leg swelling or calf pain. In the ER the ER physician felt the patient was having stridor shows CT of the soft tissues of the neck was performed which demonstrated no significant reason for the patient's stridor however CT did demonstrate new opacification of the patient's ethmoid and maxillary sinuses. The patient denies any sinus congestion continent rhinorrhea, GERD, reflux or epistaxis. He had an extended respiratory Patanol completed during his last hospitalization nose negative. He denies any new environmental allergens recent travel, moving or other ill contacts. Review of Systems Review of Systems: 12 systems were reviewed with pertinent positives and negatives per HPI. Except as documented in the HPI, all other systems were reviewed and are negative. [facility], [facility] Past Medical History Medical History (Updated 03/06/23 @ 20:55 by Ruthie Cunningham DO) Arthritis Diastolic dysfunction Hypertension Obesity, morbid, BMI 40.0-49.9 Orthostatic hypotension CHEMA (obstructive sleep apnea) Parkinsons disease Pulmonary embolism (2018) Surgical History Surgical History History of ankle surgery ORIF left ankle fracture. History of bilateral knee arthroplasty History of lumbar discectomy History of tonsillectomy Family History Family History Mother Hypertension Pulmonary embolism Father Acute myocardial infarction Social History Social History (Updated 03/07/23 @ 06:18 by Ruthie Cunningham DO) Social History: Surrogate medical decision maker: Yareli Guardado, spouse. Code status: Full code. Smoking packs per day: 1 Smoking cigarettes per day: 20.0 Years smoked: 2 Smoking pack-years: 2.00 Smoking status: Former smoker Tobacco type: cigarettes Smoking end date: 03/01/1967 Alcohol intake: never Substance use: never Substance use type: does not use Do You Feel Safe in your Home?: Yes Lack of Transportation: No Lack of Food: Never True Current Housing: I Have Housing Concerned About Future Housing: No Difficulty Paying Gas/Electric Bills: No Difficulty Paying for Meds: No Currently Unemployed: No Education: High School Diploma/GED Difficulty w/ Childcare or Family Care: No Living arrangements: with family Additional living arrangements comments: [place] Additional occupation/education comments: Retired from [employer]. Spiritual care concerns: Yes (pentacostal) Meds Home Medications and Allergies Home Medications Medication Instructions Recorded Confirmed Type aspirin 81 mg tablet,delayed 81 mg PO DAILY 06/20/21 03/06/23 History release carbidopa 25 mg-levodopa 100 mg 4 tablet PO TID 07/23/21 03/06/23 History tablet atorvastatin 40 mg tablet 40 mg PO DAILY 02/15/23 03/06/23 History albuterol sulfate 2.5 mg/3 mL 2.5 mg (3 mL) inhalation TID PRN 02/18/23 03/06/23 R
[2023-03-06] MEDS: ALBUTEROL SULFATE NEB 2.5 MG/3 ML INH INHALATION (20:42)
[2023-03-06 22:14] LABS: Troponin I 0.016 ng/mL (0.000-0.034)
--- NOTE | 2023-03-06 22:35 | ADMGEN ---
This patient, Joseph Guardado, was admitted to IMU Room 204-01 on 03/06/22 at 2125. Patient/family oriented to hospital policies and general routines including ID bracelet, bed and alarms, visiting hours, pain management, procedures, bathroom and other care routines, personal items, smoking policy, room service/diet, and visiting hours. Information on how to activate the Rapid Response Team has been discussed. Patient/Family are encouraged to report perceived risks to care and to ask questions if they do not understand what they are told or what they should do.
[2023-03-06 23:11] LABS: Hepatitis B Surface Antigen Negative (Negative)
[2023-03-06] MEDS: AMOXICILLIN/CLAVULANATE K 875-125 MG TAB 1 TABLET PO (23:14)
[2023-03-06] MEDS: FLUTICASONE PROPIONATE 0.05% NA SPR 16 GM BTL (*BKC) 1 SPRAY NASAL (23:14)
[2023-03-06] MEDS: methylPREDNISolone SOD SUCC 125 MG VIAL 60 MG IV PUSH (23:16)
[2023-03-06 23:28] LABS: HIV 1/2 Ab P24 Ag Result Negative (Negative); Hepatitis C Virus Antibody Negative (Negative)
[2023-03-07] VITALS (27 sets, daily range): BP systolic 122–139; BP diastolic 59–71; PULSE 80–106; RESP 14–24; TEMP 36.4–37.1; O2SAT 94–98
[2023-03-07] MEDS: ALBUTEROL SULFATE NEB 2.5 MG/3 ML INH INHALATION ×4 (02:25→20:27)
[2023-03-07] MEDS: IPRATROPIUM BR 0.02% INH SOLN 0.5 MG/2.5 ML VIAL INHALATION ×4 (02:25→20:27)
[2023-03-07] MEDS: methylPREDNISolone SOD SUCC 125 MG VIAL 60 MG IV PUSH ×3 (05:18→18:59)
[2023-03-07 06:21] LABS: Alveolar/Arterial O2 Gradient 77.8 mmHg; Base Excess ABG 5.1 mEq/l (+/-2.0); Carboxyhemoglobin 0.3 % THb (0-2.0); Fractional Inspired Oxygen 30 %; HCO3 ABG 30.1 mEq/l (22.0-26.0); Methemoglobin ABG 0.3 %THb (0-1.5); Oxygen Content ABG 19.9 %vol (16.0-22.0); Oxygen Saturation ABG 96.5 % (95.0-100.0); Oxyhemoglobin 95.6 % THb (90.0-100.0); PCO2 ABG 45.1 mmHg (35.0-45.0); PO2 ABG 83.1 mmHg (80.0-100.0); PO2 FiO2 Ratio Arterial Blood 2.77 %; Reduced Hemoglobin 3.8 %THb (0-5.0); Total Hemoglobin 14.8 g/dL (12.0-18.0); pH ABG 7.442 (7.350-7.450)
[2023-03-07 06:22] LABS: Device NON-INVASIVE VENT; Modified Allen's Test Pass; Site Drawn LEFT RADIAL
[2023-03-07 06:23] LABS: Non-Invasive Expiratory Pressure 7 CMH2O; Non-Invasive Inspiratory Pressure 14 CMH2O
[2023-03-07 06:53] LABS: Hematocrit 45.6 % (42.0-52.0); Hemoglobin 14.4 g/dL (14.0-18.0); Immature Granulocyte Absolute 0.04 K/mm3 (0.00-0.031); Immature Granulocyte Percent A 0.5 % (0-0.5); Lymphocytes Absolute Auto 0.65 K/mm3 (0.9-3.2); Lymphocytes Percent Auto 8.7 % (18.3-44.2); Mean Corpuscular HGB Conc 31.6 g/dl (32-36); Mean Corpuscular Hemoglobin 30.1 pg (26-34); Mean Corpuscular Volume 95.4 fl (80-100); Mean Platelet Volume 10.4 fl (7.4-10.4); Monocytes Absolute Auto 0.1 K/mm3 (0.1-0.6); Monocytes Percent Auto 1.9 % (2.6-8.5); Neutrophils Absolute Auto 6.6 K/mm3 (1.3-6.7); Neutrophils Percent Auto 88.9 % (45.5-73.1); Platelet Count Result 155 k/mm3 (150-375); Red Blood Count 4.78 M/mm3 (4.6-6.20); White Blood Count 7.4 K/mm3 (4.5-10.0)
[2023-03-07 07:00] LABS: Anion Gap 6 mmol/L (8-16); Blood Urea Nitrogen 13 mg/dL (9-20); Calcium 9.1 mg/dL (8.4-10.2); Carbon Dioxide 32 mmol/L (22-30); Chloride 98 mmol/L (98-107); Estimated CRCL calculation 176 ml/min; Estimated Glomerular Filt Rate > 60; Glucose 151 mg/dL (65-110); Potassium 4.4 mmol/L (3.4-5.0); Sodium 136 mmol/L (137-145)
[2023-03-07] MEDS: FLUTICASONE PROPIONATE 0.05% NA SPR 16 GM BTL (*BKC) 1 SPRAY NASAL ×2 (09:26→20:06)
[2023-03-07] MEDS: CARBIDOPA/LEVODOPA 25/100 MG TABLET 4 TABLET PO ×3 (09:26→18:56)
[2023-03-07] MEDS: AMOXICILLIN/CLAVULANATE K 875-125 MG TAB 1 TABLET PO ×2 (09:26→20:06)
[2023-03-07] MEDS: ENOXAPARIN 40 MG/0.4 ML SYRINGE SUB-Q (09:26)
[2023-03-07] MEDS: ASPIRIN 81 MG ENTERIC TABLET PO (09:26)
[2023-03-07] MEDS: ATORVASTATIN 40 MG TABLET PO (09:26)
--- NOTE | 2023-03-07 12:33 | PM.CNPUL ---
Assessment and Plan Assessment and plan (1) Acute respiratory failure with hypoxia and hypercapnia: Code(s): J96.01 - Acute respiratory failure with hypoxia; J96.02 - Acute respiratory failure with hypercapnia Status: Acute Assessment and Plan: The patient had stridor and wheezing last month when he was admitted and recurrent episode with admission this month. There is a possible concern for aspiration even though he does not report difficulties with swallowing. He is responding well to steroids. With wheezing he may have airway obstructive lung disease which has not been diagnosed. He may benefit from pulmonary function testing after he recovers. Chest CT is negative for emphysema or bronchiectasis.? (2) Sinusitis: Qualifiers: Chronicity: unspecified Sinusitis location: maxillary Qualified Code(s): J32.0 - Chronic maxillary sinusitis Code(s): J32.9 - Chronic sinusitis, unspecified Status: Acute Assessment and Plan: Sinusitis is new on his soft tissue x-ray of his neck. This should respond to his systemic antibiotics. He does not have any bronchiectasis on chest CT. Plan This patient has recurrent hypoxemic respiratory failure; last month had hypoxemia without increased pCo2; this time has hypercapnia. He developed increased stridor after weaning off prednisone. During his February 15 - evaluation also had stridor. Currently has new sinusitis. He had mild eosinophilia last month, 900 total eosinophils. He may have some underlying process such as ABPA, allergic bronchopulmonary aspergillosis, or other eosinophil associated process. and allergic immune condition but not a fungal infection. This worsens with withdrawal of steroids. He may have other underlying a reasons for his stridor. Does not appear to have angioedema, did not have swelling or tongue, lips, face; was not exposed to cold temperature. Whatever he has is steroid responsive. We will plan a slower steroid wean, home oxygen evaluation prior to discharge. Patient has a history of obstructive sleep apnea, has been on oxygen at home in the past. He has not had a follow-up visit in our office yet, was followed for shortness of breath and sleep event on evaluation previously. History of Present Illness History of Present Illness Consult date: 03/08/23 Chief complaint: ACUTE HYPERCAPNIC RESPIRATORY FAILURE, ELEVATED TR Narrative: cc: Increased wheezing, shortness of breath, stridor and drop in saturation after weaning off prednisone following discharge Feb 18 NEW: Joseph Guardado is a 72-year-old man recently in the hospital seen in consultation Feb 16 with acute respiratory failure with hypoxemia, suspected to be due to an an atypical infection, negative swabs for COVID/flu/RSV. No hx of COPD or asthma. He went home Feb 18, 2023 with nebulized with albuterol and ipratropium, completed steroids with return of wheezing. He saw Dr Maldonado last Wednesday, Mar 02, was wheezing, was told to continue same treatment. On , symptoms worsened; more wheezing, shortness of breath, coughing with blood tinged sputum. On Wednesday walking from the bathroom, his oxygen saturation dropped to 75%. This is new and worse, normally at home with exertion saturation is 88% to 90%. He called Dr. Maldonado who increased his dose of prednisone and increased frequency of nebulized medications. He has had clear nasal drainage and sinus congestion. He has not had chest pain, leg swelling, hemoptysis, fever. In the emergency department he was in moderate distress with inspiratory and expiratory stridor. Soft tissue CT of the neck showed nothing abnormal. He has new sinusitis-?extensive sinus disease involving the bilateral maxillary sinuses and bilateral ethmoid
--- NOTE | 2023-03-07 13:38 | PCSTNOTE ---
Attempted bedside swallowing evaluation. Patient receiving breathing treatment. Will come back later today if schedule permits, otherwise patient will be seen tomorrow.
--- NOTE | 2023-03-07 13:38 | PM.IMPN ---
Progress Note: A&P Assessment and Plan (1) Acute respiratory failure with hypoxia and hypercapnia: Code(s): J96.01 - Acute respiratory failure with hypoxia; J96.02 - Acute respiratory failure with hypercapnia Status: Acute Assessment and Plan: Patient presents with shortness of breath. His symptoms improved with the steroids last admission but worsened as steroids were being weaned and then stopped. ABG 7.34/62/108 on 2L. BiPAP started. Given steroids and neb treatments. CXR showing mild central pulm venous congestion. Repeat ABG 7.44/45/83 on BiPAP Chest CTA pending. Influenza, RSV and COVID PCR negative. Viral panel from last admission negative Suspect patient has untreated CHEMA which is contributing to his respiratory failure with an underlying reactive airway disease component of unclear etiology. Consider CHF given the chest x-ray findings but BNP 117. Consider PNA. Follow up on CTA chest. Check Echo Continue Solu-Medrol and nebulizer treatments. Will check lower extremity venous Dopplers to exclude DVT. Pulmonary consult. Check IgE levels. Check for histoplasmosis and Legionella. Will plan for patient to be home with BiPAP at discharge. Hold ASA since may trigger asthma (2) Elevated troponin: Code(s): R79.89 - Other specified abnormal findings of blood chemistry Status: Acute Assessment and Plan: Troponin is mildly elevated at 0.035 (upper limits of normal are 0.034). Second and 3rd values are normal. Mildly elevated troponin most likely related to demand ischemia from his hypoxia. EKG showed normal sinus with right axis deviation and right bundle branch block. No significant change from prior. The trivial elevation of the troponin is not significant. Monitor on telemetry (3) CHEMA (obstructive sleep apnea): Code(s): G47.33 - Obstructive sleep apnea (adult) (pediatric) Status: Acute Assessment and Plan: Patient states he has never been told he has sleep apnea. States he had indeterminate sleep study in 2019. Record review however shows he has sleep study on 06/27/2018 showing extraordinarily severe CHEMA with significant central apnea as well that improved with titration. No optimal pressure was demonstrated. ASV titration was recommended as patient did have significant central apnea which worsened with pressure. He continued to have obstructive events so he has failed CPAP and BiPAP according to the report. Pulmonary consulted. Try to titrate BiPAP for benefit. (4) Sinusitis: Qualifiers: Sinusitis location: maxillary Chronicity: unspecified Qualified Code(s): J32.0 - Chronic maxillary sinusitis Code(s): J32.9 - Chronic sinusitis, unspecified Status: Acute Assessment and Plan: Patient felt to have stridor so CT soft tissue of the neck performed showing extensive sinus disease. Interestingly, CT soft tissue neck on 02/15/23 showing clear sinuses. Augmentin started. Follow (5) Essential hypertension: Code(s): I10 - Essential (primary) hypertension Status: Acute Assessment and Plan: Patient's blood pressure was reviewed on 03/07 Blood pressure remains well controlled. Patient does not appear to be on home antihypertensives. Will monitor and initiate therapy if indicated but we need to use caution as patient does have history of orthostatic hypotension likely due to autonomic dysfunction with history of Parkinson's disease. Will continue to follow (6) Parkinsons disease: Code(s): G20 - Parkinson's disease Status: Acute Assessment and Plan: Stable. Sinemet has been resumed. Order PT/OT. Speech therapy consulted given his respiratory problems and history of Parkinson's. Plan Code status -full DVT prophylaxis -Lovenox Subjective Date/time seen: 03/07/23 13:38 Interval history: 72yo male with Parkinson, CHEMA, HTN and PE here for increasing SOB. Patient was here
--- NOTE | 2023-03-07 13:59 | PCOTNOTE ---
Attempted occuaptional therapy evaluation, patient was at a CT scan as reported by RN. Following.
[2023-03-08] VITALS (29 sets, daily range): BP systolic 123–139; BP diastolic 60–76; PULSE 79–97; RESP 20–24; TEMP 36.1–36.9; O2SAT 92–97
--- NOTE | 2023-03-08 | ECHO_ITS ---
Patient Info Name: Joseph Guardado Age: 72 years : 1950 Gender: Male Ht: 73 in Wt: 354 lbs BSA: 2.95 m2 HR: 81 bpm BP: 139 / 68 mmHg Heart Rhythm: Sinus Rhythm Technical Quality: Poor Exam Date: 03/08/2023 10:54 AM Exam Location: Echo Lab Exam Room: [facility] Patient Status: Inpatient Admit Date: 03/07/2023 Staff Ordering Physician: Elías Peralta MD Return To Factory Clerk: Tonia Massey RDCS Attending Provider: Soraida Montes MD Exam Type: CA echo dop bubble study w con Study Info Indications - RESP FAILURE Complete two-dimentional, color flow and Doppler transthoracic echocardiogram is performed with agitated saline and with contrast to opacify the left ventricle and to improve the delineation of the left ventricle endocardial borders. Contrast/Agitated Saline Contrast/Ag. Saline: Definity Amount: 2.00 ml Administered By: Tonia Massey [facility] Existing IV Access: Yes IV Access Condition: patent with no signs of infiltration Reason for Poor Study: patient body habitus Summary 1. Technically difficult study. 2. Left ventricular chamber dimension is normal. 3. Left ventricular systolic function is normal, estimated at 65-70%. 4. There is mildly increased left ventricular wall thickness. 5. The left ventricular diastolic function is grade I diastolic dysfunction. 6. There is no aortic valve stenosis. 7. There is trace mitral valve regurgitation. 8. There is mild tricuspid valve regurgitation. 9. Mild pulmonary hypertension, estimated pulmonary arterial systolic pressure is 45 mmHg. Left Ventricle Left ventricular chamber dimension is normal. Left ventricular systolic function is normal, estimated at 65-70%. There is mildly increased left ventricular wall thickness. The left ventricular diastolic function is grade I diastolic dysfunction. Technically difficult study. Right Ventricle Right ventricular chamber dimension is normal. Right ventricular systolic function is normal. Left Atria Left atrial chamber dimension is mildly enlarged. Right Atria Right atrial chamber dimension is mildly enlarged. Aortic Valve The aortic valve is not well visualized. There is no aortic valve stenosis. There is no aortic valve regurgitation. Pulmonic Valve The pulmonic valve is not well visualized. Mitral Valve The mitral valve has normal leaflets. There is trace mitral valve regurgitation. The mitral valve annulus is moderately calcified. Tricuspid Valve The tricuspid valve leaflets are normal. There is mild tricuspid valve regurgitation. Mild pulmonary hypertension, estimated pulmonary arterial systolic pressure is 45 mmHg. Pericardium/Pleural The pericardium appears epicardial fat pad. There is trivial pericardial effusion. Aorta The aortic root size at the sinus of Valsalva is normal. There is moderate aortic atherosclerosis. Left Ventricular Outflow Tract Name Value Normal LVOT 2D LVOT Diameter 2.1 cm LVOT Doppler LVOT Peak Gradient 6 mmHg LVOT Mean Gradient 3 mmHg LVOT VTI 21 cm LVOT VTI/AV VTI Ratio 0.9
[2023-03-08] MEDS: methylPREDNISolone SOD SUCC 125 MG VIAL 60 MG IV PUSH ×3 (00:14→17:12)
[2023-03-08] MEDS: ALBUTEROL SULFATE NEB 2.5 MG/3 ML INH INHALATION ×4 (02:48→20:46)
[2023-03-08] MEDS: IPRATROPIUM BR 0.02% INH SOLN 0.5 MG/2.5 ML VIAL INHALATION ×4 (02:48→20:46)
[2023-03-08 05:25] LABS: Basophils Percent Auto 0.2 % (0.2-1.2); Hematocrit 43.2 % (42.0-52.0); Hemoglobin 13.3 g/dL (14.0-18.0); Immature Granulocyte Absolute 0.05 K/mm3 (0.00-0.031); Immature Granulocyte Percent A 0.4 % (0-0.5); Lymphocytes Percent Auto 5.1 % (18.3-44.2); Mean Corpuscular HGB Conc 30.8 g/dl (32-36); Mean Corpuscular Hemoglobin 29.6 pg (26-34); Mean Platelet Volume 10.5 fl (7.4-10.4); Monocytes Absolute Auto 0.2 K/mm3 (0.1-0.6); Neutrophils Absolute Auto 10.8 K/mm3 (1.3-6.7); Neutrophils Percent Auto 92.3 % (45.5-73.1); Platelet Count Result 173 k/mm3 (150-375); Red Cell Distribution Width 14.1 % (11.5-14.5); White Blood Count 11.7 K/mm3 (4.5-10.0)
[2023-03-08 05:36] LABS: Alanine Aminotransferase 9 U/L (6-50); Albumin Level 3.3 g/dL (3.5-5.1); Alkaline Phosphatase 76 U/L (38-126); Anion Gap 3 mmol/L (8-16); Aspartate Amino Transferase 21 U/L (17-59); Bilirubin,Total 0.5 mg/dL (0.2-1.3); Blood Urea Nitrogen 16 mg/dL (9-20); Calcium 8.7 mg/dL (8.4-10.2); Carbon Dioxide 32 mmol/L (22-30); Chloride 100 mmol/L (98-107); Estimated CRCL calculation 175 ml/min; Estimated Glomerular Filt Rate > 60; Glucose 161 mg/dL (65-110); Potassium 4.1 mmol/L (3.4-5.0); Sodium 135 mmol/L (137-145)
--- NOTE | 2023-03-08 07:50 | PCSTNOTE ---
Please refer to the Bedside Swallow Evaluation in the EMR. Please note, silent aspiration cannot be ruled out at bedside. The above pleasant and cooperative pt was seen for a swallow evaluation at bedside. The pt was positioned upright in the bed. He was alert able to follow commands. He is currently on a heart healthy diet and denies dysphagia. Oral mucosa is normal; natural dentition is in good condition; Oral peripheral exam revealed lingual and labial structures to be normal. He was able to dry swallow on command and exhibited a strong cough and clear vocal quality. He was tested with pudding, applesauce, cracker and thin liquids. The oral stages appeared WNL. No oral leakage or pocketing was noted. During the pharyngeal stage, swallow reflex appeared prompt & laryngeal elevation adequate. No overt s/s of aspiration were exhibited; however, silent aspiration cannot ruled at bedside. General impression is normal swallow ability. Recommendation: Continue current diet. Thank you for this referral.
[2023-03-08] MEDS: AMOXICILLIN/CLAVULANATE K 875-125 MG TAB 1 TABLET PO ×2 (08:40→20:44)
[2023-03-08] MEDS: ENOXAPARIN 40 MG/0.4 ML SYRINGE SUB-Q (08:41)
[2023-03-08] MEDS: FLUTICASONE PROPIONATE 0.05% NA SPR 16 GM BTL (*BKC) 1 SPRAY NASAL ×2 (08:42→20:44)
[2023-03-08] MEDS: ATORVASTATIN 40 MG TABLET PO (08:42)
[2023-03-08] MEDS: CARBIDOPA/LEVODOPA 25/100 MG TABLET 4 TABLET PO ×3 (09:42→19:47)
--- NOTE | 2023-03-08 11:02 | PCPTNOTE ---
Attempted PT evaluation, pt getting echo at this time. Will follow.
[2023-03-08] MEDS: PERFLUTREN LIPID MICROSPHERES 1.5 ML VIAL DILUTED TO 10 ML TOTAL VOLUME IV PUSH (11:40)
--- NOTE | 2023-03-08 12:12 | PM.PNPUL ---
Progress Note: A&P Assessment and Plan (1) Acute respiratory failure with hypoxia and hypercapnia: Code(s): J96.01 - Acute respiratory failure with hypoxia; J96.02 - Acute respiratory failure with hypercapnia Status: Acute Assessment and Plan: A new onset of wheezing in a patient with Parkinson's disease responding to oral steroids raises the possibility of respiratory condition, perhaps involving an element of airway hyperreactivity. The patient had no recent history of upper respiratory infection like viral pneumonia and has no history of asthma. His chest CT showed no evidence of emphysema or bronchiectasis. Of note the patient is essentially a never smoker. Given the patient's history of Parkinson disease is possible the wheezing could be related to aspiration due to dysphagia. Upon questioning the patient denied having history of a choking on food and no history of cough spells with meals. Plan: Will continue with current antibiotic, DVT prophylaxis. I have decreased IV Solu-Medrol. Will continue with a BiPAP support at night and p.r.n. during the day as ordered. Will proceed with a video swallow study. Continue with short-acting bronchodilators p.r.n.. (2) Sinusitis: Qualifiers: Sinusitis location: maxillary Chronicity: unspecified Qualified Code(s): J32.0 - Chronic maxillary sinusitis Code(s): J32.9 - Chronic sinusitis, unspecified Status: Acute (3) CHEMA (obstructive sleep apnea): Code(s): G47.33 - Obstructive sleep apnea (adult) (pediatric) Status: Acute Assessment and Plan: This patient has known obstructive sleep apnea which was found to be of severe degree by a sleep study in 2019. The patient has not been on any treatment for severe sleep apnea. Given the history of sleep apnea there may be an association between obstructive sleep apnea and wheezing. The hypoxia and fragmentation of sleep can cause systemic inflammation which can potentially increase the risk of bronchial hyperresponsiveness and wheezing. The patient will need a repeat sleep study with CPAP titration. Subjective Date/time seen: 03/08/23 12:12 Interval history: This 72-year-old man presented with progressively increasing shortness of breath and wheezing following discontinuation of steroids prescribed during last hospitalization in January when he again presented with similar symptomatology. Patient never had history of asthma or COPD. He is a non smoker. He has got history of Parkinson disease on medications. He reports no history of dysphagia. He has no history of congestive heart failure. Patient received IV steroids, nebulized short-acting bronchodilators and treated with BiPAP support for acute hypercapnic respiratory failure. Currently he is doing better. He is on room air. He continues to have a cough with some sputum production. He has a history of severe sleep apnea diagnosed in 2019. He has not been on any treatment. His titration study was unsuccessful following initial sleep study in 2019. Review of Systems Review of Systems: All systems reviewed & are unremarkable except as noted in HPI and below Exam Narrative: GENERAL APPEARANCE: Well developed, well nourished, alert and cooperative, morbidly obese and appears to be in no acute distress while on room air SKIN: Inspection of the skin reveals no rashes, ulcerations or petechiae. HEENT: Sclerae anicteric and conjunctivae pink and moist. Extraocular movements were intact and pupils were equal, round. The oral mucosa, hard and soft palate, tongue and posterior pharynx were normal. NECK: Supple. There was no thyroid enlargement, and no tenderness, or masses were felt. CHEST: Normal AP diameter and normal contour without any kyphoscoliosis. LUNGS: Mild expiratory wheezing bilaterally. CARDIAC: There was a regular rate and rhythm without any murmurs, gallops, rubs. ABDOMEN: Soft and nontender with normal bowel sounds. Ther
--- NOTE | 2023-03-08 13:55 | IVDEFINITY ---
Prior to administration of IV Definity the patient was educated on the risks and benefits of the imaging enhancing agent including potential adverse side effects. The patient verbalized understanding. Allergies were verified. No exclusion criteria were identified and at least one of the following inclusion criteria were met: 1) physician request, 2) patient technically difficult to image (per the [place] [employer] guidelines of two or more segments not discernable within the apical view), or 3) questionable left ventricular function. ?
--- NOTE | 2023-03-08 13:57 | PCSTNOTE ---
Please refer to the Modified Barium Swallow Evaluation in the EMR. The pt was initially positioned standing a/p for the evaluation related to size and inability to use MBS chair or sit for a lateral view. In the a/p view, thin liquids, pudding, mixed consistency, and solids were tested; oral stages were within normal limits; no obvious aspiration occurred but in the a/p view there was difficult differentiation between the laryngeal vestibule and pyriform sinus for possible laryngeal penetration. Again, no obvious aspiration in the a/p position was exhibited; the pt was then shifted into a more lateral view. He was retested with pureed and thin liquids. (pt's ability to stand was limited) Trace vallecular and pyriform sinus sinus was noted which cleared with a dry swallow. Trace shallow laryngeal penetration was noted (after straw drinking thin liquids) but it was cleared with throat clearing. No aspiration occurred. Impression: functional swallow Results & recommendations were discussed with the pt and his daughter. i.e. dry swallow after every couple/few bites and cough/throat clear after drinking thin liquids.
--- NOTE | 2023-03-08 17:00 | PM.IMPN ---
Progress Note: A&P Assessment and Plan (1) Acute respiratory failure with hypoxia and hypercapnia: Code(s): J96.01 - Acute respiratory failure with hypoxia; J96.02 - Acute respiratory failure with hypercapnia Status: Acute Assessment and Plan: Patient presents with shortness of breath. His symptoms improved with the steroids last admission but worsened as steroids were being weaned and then stopped. ABG 7.34/62/108 on 2L. BiPAP started. Given steroids and neb treatments. CXR showing mild central pulm venous congestion. Repeat ABG 7.44/45/83 on BiPAP Chest CTA negative for large PEs or PNA. Doppler bilateral LE negative for DVT. Influenza, RSV and COVID PCR negative. Viral panel from last admission negative Suspect patient has untreated CHEMA which is contributing to his respiratory failure with an underlying reactive airway disease component of unclear etiology. Echo showing EF 65-70% with Grade I diastolic dysfunction and mild pHTN. Speech therapy with MBS showed no concerns for aspirations Pulmonary consulted and appreciate their input. Continue Solu-Medrol and nebulizer treatments. RLE may be early cellulitis. Monitor (2) Elevated troponin: Code(s): R79.89 - Other specified abnormal findings of blood chemistry Status: Acute Assessment and Plan: Troponin is mildly elevated at 0.035 (upper limits of normal are 0.034). Second and 3rd values are normal. Mildly elevated troponin most likely related to demand ischemia from his hypoxia. EKG showed normal sinus with right axis deviation and right bundle branch block. No significant change from prior. The trivial elevation of the troponin is not significant. No acute concerns on tele. Stop tele. transfer to medical floor (3) CHEMA (obstructive sleep apnea): Code(s): G47.33 - Obstructive sleep apnea (adult) (pediatric) Status: Acute Assessment and Plan: Patient states he has never been told he has sleep apnea. States he had indeterminate sleep study in 2019. Record review however shows he has sleep study on 06/27/2018 showing extraordinarily severe CHEMA with significant central apnea as well that improved with titration. No optimal pressure was demonstrated. ASV titration was recommended as patient did have significant central apnea which worsened with pressure. He continued to have obstructive events so he has failed CPAP and BiPAP according to the report. Pulmonary consulted. BiPAP per pulmonary insructions. (4) Sinusitis: Qualifiers: Sinusitis location: maxillary Chronicity: unspecified Qualified Code(s): J32.0 - Chronic maxillary sinusitis Code(s): J32.9 - Chronic sinusitis, unspecified Status: Acute Assessment and Plan: Patient felt to have stridor so CT soft tissue of the neck performed showing extensive sinus disease. Interestingly, CT soft tissue neck on 02/15/23 showing clear sinuses. Continue Augmentin Follow (5) Essential hypertension: Code(s): I10 - Essential (primary) hypertension Status: Acute Assessment and Plan: Patient's blood pressure was reviewed on 03/08 Blood pressure remains well controlled. Patient does not appear to be on home antihypertensives. Will monitor and initiate therapy if indicated but we need to use caution as patient does have history of orthostatic hypotension likely due to autonomic dysfunction with history of Parkinson's disease. Will continue to follow (6) Parkinsons disease: Code(s): G20 - Parkinson's disease Status: Acute Assessment and Plan: Stable. Sinemet has been resumed. Speech therapy with MBS showed no concerns for aspirations Continue PT/OT. Plan Code status -full DVT prophylaxis -Lovenox Subjective Date/time seen: 03/08/23 17:00 Interval history: 72yo male with Parkinson, CHEMA, HTN and PE here for increasing SOB. Patient was here 02/15-02/18 for shortness of marbin
--- NOTE | 2023-03-08 20:58 | PC.NURSE ---
This patient, Joseph Guardado, was transferred to [ 3rd [facility]] on 03/08/23 at 2058. Personal belongings sent with patient. Report given to [DONG Soares ]. Appropriate documentation sent with patient. Family at bedside.
--- NOTE | 2023-03-08 21:54 | PC.NURSE ---
Pt arrived to floor with family via bed from IMU. report received prior to arrival from [facility]e [facility]. Pt oriented to floor and room with call light in reach.
[2023-03-09] VITALS (15 sets, daily range): BP systolic 130–139; BP diastolic 75–77; PULSE 73–100; RESP 18–20; TEMP 36.3–36.4; O2SAT 92–98
[2023-03-09] MEDS: ALBUTEROL SULFATE NEB 2.5 MG/3 ML INH INHALATION ×4 (02:41→20:17)
[2023-03-09] MEDS: IPRATROPIUM BR 0.02% INH SOLN 0.5 MG/2.5 ML VIAL INHALATION ×4 (02:41→20:17)
[2023-03-09 07:07] LABS: Basophils Percent Auto 0.1 % (0.2-1.2); Hematocrit 42.5 % (42.0-52.0); Hemoglobin 13.6 g/dL (14.0-18.0); Immature Granulocyte Absolute 0.05 K/mm3 (0.00-0.031); Immature Granulocyte Percent A 0.5 % (0-0.5); Lymphocytes Absolute Auto 1.07 K/mm3 (0.9-3.2); Lymphocytes Percent Auto 10.9 % (18.3-44.2); Mean Corpuscular Hemoglobin 30.1 pg (26-34); Mean Platelet Volume 10.1 fl (7.4-10.4); Monocytes Absolute Auto 0.8 K/mm3 (0.1-0.6); Neutrophils Absolute Auto 7.9 K/mm3 (1.3-6.7); Neutrophils Percent Auto 80.5 % (45.5-73.1); Platelet Count Result 176 k/mm3 (150-375); Red Blood Count 4.52 M/mm3 (4.6-6.20); Red Cell Distribution Width 14.3 % (11.5-14.5); White Blood Count 9.8 K/mm3 (4.5-10.0)
[2023-03-09 07:17] LABS: Anion Gap 1 mmol/L (8-16); Blood Urea Nitrogen 20 mg/dL (9-20); Calcium 8.6 mg/dL (8.4-10.2); Carbon Dioxide 35 mmol/L (22-30); Chloride 99 mmol/L (98-107); Estimated CRCL calculation 149 ml/min; Estimated Glomerular Filt Rate > 60; Glucose 121 mg/dL (65-110); Sodium 135 mmol/L (137-145)
[2023-03-09] MEDS: ENOXAPARIN 40 MG/0.4 ML SYRINGE SUB-Q (08:24)
[2023-03-09] MEDS: methylPREDNISolone SOD SUCC 125 MG VIAL 60 MG IV PUSH ×2 (08:24→17:09)
[2023-03-09] MEDS: ATORVASTATIN 40 MG TABLET PO (08:24)
[2023-03-09] MEDS: AMOXICILLIN/CLAVULANATE K 875-125 MG TAB 1 TABLET PO ×2 (08:24→20:39)
[2023-03-09] MEDS: FLUTICASONE PROPIONATE 0.05% NA SPR 16 GM BTL (*BKC) 1 SPRAY NASAL ×2 (08:25→20:39)
--- NOTE | 2023-03-09 08:58 | PM.PNPUL ---
Progress Note: A&P Assessment and Plan (1) Acute respiratory failure with hypoxia and hypercapnia: Code(s): J96.01 - Acute respiratory failure with hypoxia; J96.02 - Acute respiratory failure with hypercapnia Status: Acute Assessment and Plan: Patient's respiratory status significantly improved. On physical exam he no longer has expiratory wheezing. Cough and sputum production also improved on antibiotic, IV steroids and short-acting bronchodilators. Patient's bronchospasm a could be related to new onset asthma, bronchospastic bronchitis following a viral infection or silent aspiration related to underlying Parkinson's disease and or severe untreated sleep apnea. Plan: Okay to DC patient home. Patient should be evaluated for home oxygen. As far as medications he will continue with prednisone taper regimen for approximately 10 more days as follows. Prednisone 30 mg p.o. daily for 3 days then prednisone 25 mg daily for 3 days, then prednisone 20 mg daily for 2 days, then prednisone 10 mg daily for 3 days then stop. In addition he will be on Symbicort 160/4.5 inhaler 2 puffs twice daily and albuterol 2 puffs q.i.d. p.r.n. shortness of breath and wheezing. The patient has an appointment to return to pulmonary clinic later on this month. Patient will need a repeat sleep study for his severe sleep apnea 1st diagnosed in 2019. Will sign off please call with any questions. (2) Sinusitis: Qualifiers: Chronicity: unspecified Sinusitis location: maxillary Qualified Code(s): J32.0 - Chronic maxillary sinusitis Code(s): J32.9 - Chronic sinusitis, unspecified Status: Acute (3) CHEMA (obstructive sleep apnea): Code(s): G47.33 - Obstructive sleep apnea (adult) (pediatric) Status: Acute Assessment and Plan: This patient has known obstructive sleep apnea which was found to be of severe degree by a sleep study in 2019. The patient has not been on any treatment for severe sleep apnea. Given the history of sleep apnea there may be an association between obstructive sleep apnea and wheezing. The hypoxia and fragmentation of sleep can cause systemic inflammation which can potentially increase the risk of bronchial hyperresponsiveness and wheezing. The patient will need a repeat sleep study with CPAP titration. Subjective Date/time seen: 03/09/23 08:58 Interval history: Patient has no new respiratory symptoms. Overall doing better. Has less cough and less sputum production. His still on supplemental oxygen via nasal cannula. Afebrile. Has no wheezing Review of Systems Review of Systems: All systems reviewed & are unremarkable except as noted in HPI and below Exam Narrative: GENERAL APPEARANCE: Well developed, well nourished, alert and cooperative, morbidly obese and appears to be in no acute distress while oxygen via nasal cannula SKIN: Inspection of the skin reveals no rashes, ulcerations or petechiae. HEENT: Sclerae anicteric and conjunctivae pink and moist. Extraocular movements were intact and pupils were equal, round. The oral mucosa, hard and soft palate, tongue and posterior pharynx were normal. NECK: Supple. There was no thyroid enlargement, and no tenderness, or masses were felt. CHEST: Normal AP diameter and normal contour without any kyphoscoliosis. LUNGS: Clear lungs bilaterally no wheezing. CARDIAC: There was a regular rate and rhythm without any murmurs, gallops, rubs. ABDOMEN: Soft and nontender with normal bowel sounds. There was no organomegaly. LYMPH NODES: No lymphadenopathy was appreciated in the neck. EXTREMITIES: No cyanosis, clubbing or edema. NEUROLOGIC: Alert and oriented x 3. Normal affect. Objective Data Vital Signs Vital Signs: Vital Signs - 24 hr 03/08/23 09:27 03/08/23 09:29 03/08/23 09:39 Temperature Pulse Rate 97 96 Respiratory Rate 20 20 Blood Pressure Pulse Oximetry 92 Oxygen Delivery Nasal Cannula Oxygen Flow Rate 2
[2023-03-09] MEDS: CARBIDOPA/LEVODOPA 25/100 MG TABLET 4 TABLET PO ×3 (09:56→17:08)
--- NOTE | 2023-03-09 15:28 | PM.IMPN ---
Progress Note: A&P Assessment and Plan (1) Acute respiratory failure with hypoxia and hypercapnia: Code(s): J96.01 - Acute respiratory failure with hypoxia; J96.02 - Acute respiratory failure with hypercapnia Status: Acute Assessment and Plan: Patient presents with shortness of breath. His symptoms improved with the steroids last admission but worsened as steroids were being weaned and then stopped. ABG 7.34/62/108 on 2L. BiPAP started. Given steroids and neb treatments. CXR showing mild central pulm venous congestion. Repeat ABG 7.44/45/83 on BiPAP Chest CTA negative for large PEs or PNA. Doppler bilateral LE negative for DVT. Influenza, RSV and COVID PCR negative. 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 Echo showing EF 65-70% with Grade I diastolic dysfunction and mild pHTN. Speech therapy with MBS showed no concerns for aspirations Pulmonary consulted and appreciate their input. Continue Solu-Medrol and nebulizer treatments. Home with O2 and Prednisone. Pulmonary has signed off. Feel patient will need BiPAP at home since he is high risk for re-hospitalization. (2) Elevated troponin: Code(s): R79.89 - Other specified abnormal findings of blood chemistry Status: Acute Assessment and Plan: Troponin is mildly elevated at 0.035 (upper limits of normal are 0.034). Second and 3rd values are normal. Mildly elevated troponin most likely related to demand ischemia from his hypoxia. EKG showed normal sinus with right axis deviation and right bundle branch block. No significant change from prior. The trivial elevation of the troponin is not significant. There were no acute concerns on tele. (3) CHEMA (obstructive sleep apnea): Code(s): G47.33 - Obstructive sleep apnea (adult) (pediatric) Status: Acute Assessment and Plan: Patient states he has never been told he has sleep apnea. States he had indeterminate sleep study in 2019. Record review however shows he has sleep study on 06/27/2018 showing extraordinarily severe CHEMA with significant central apnea as well that improved with titration. No optimal pressure was demonstrated. ASV titration was recommended as patient did have significant central apnea which worsened with pressure. He continued to have obstructive events so he has failed CPAP and BiPAP according to the report. Pulmonary consulted. Feel patient will need BiPAP at discharge (4) Sinusitis: Qualifiers: Sinusitis location: maxillary Chronicity: unspecified Qualified Code(s): J32.0 - Chronic maxillary sinusitis Code(s): J32.9 - Chronic sinusitis, unspecified Status: Acute Assessment and Plan: Patient felt to have stridor so CT soft tissue of the neck performed showing extensive sinus disease. Interestingly, CT soft tissue neck on 02/15/23 showing clear sinuses. Continue Augmentin Follow (5) Essential hypertension: Code(s): I10 - Essential (primary) hypertension Status: Acute Assessment and Plan: Patient's blood pressure was reviewed on 03/09 Blood pressure remains well controlled. Patient does not appear to be on home antihypertensives. Will monitor and initiate therapy if indicated but we need to use caution as patient does have history of orthostatic hypotension likely due to autonomic dysfunction with history of Parkinson's disease. Will continue to follow (6) Parkinsons disease: Code(s): G20 - Parkinson's disease Status: Acute Assessment and Plan: Stable. Sinemet has been resumed. Speech therapy with MBS showed no concerns for aspirations Continue PT/OT. Plan Code status -full DVT prophylaxis -Lovenox Subjective Date/time seen: 03/09/23 15:28 Interval history: 7
[2023-03-09 16:34] LABS: Alveolar/Arterial O2 Gradient 127.9 mmHg; Base Excess ABG 4.3 mEq/l (+/-2.0); Fractional Inspired Oxygen 32 %; HCO3 ABG 30.2 mEq/l (22.0-26.0); PCO2 ABG 49.8 mmHg (35.0-45.0); PO2 FiO2 Ratio Arterial Blood 1.31 %; Total Hemoglobin 14.8 g/dL (12.0-18.0); pH ABG 7.401 (7.350-7.450)
[2023-03-09 16:44] LABS: Oxygen Saturation ABG 77.1 % (95.0-100.0)
[2023-03-09 16:45] LABS: Device NASAL CANNULA; Modified Allen's Test Pass; Oxyhemoglobin 77.1 % THb (90.0-100.0); Site Drawn RIGHT RADIAL
[2023-03-10] VITALS (9 sets, daily range): BP systolic 132–139; BP diastolic 66–81; PULSE 67–87; RESP 18–20; TEMP 36.2–36.6; O2SAT 93–96
--- NOTE | 2023-03-10 04:18 | PCRCNOTE ---
Patient did not receive his 0200 updraft treatment due to being on an apnea link. Treatment to resume at 0800.
--- NOTE | 2023-03-10 05:26 | PCRCNOTE ---
Patient was on apnea link study last night on 3L. Pt got up to use the restroom, hospital staff helped him, and removed the cannula that connects to the apnea link. The original cannula was never hooked back up and RT was never called. RT addressed charge nurse so future incidents can be resolved.
[2023-03-10] MEDS: methylPREDNISolone SOD SUCC 125 MG VIAL 60 MG IV PUSH ×2 (09:08→18:27)
[2023-03-10] MEDS: ENOXAPARIN 40 MG/0.4 ML SYRINGE SUB-Q (09:08)
[2023-03-10] MEDS: AMOXICILLIN/CLAVULANATE K 875-125 MG TAB 1 TABLET PO ×2 (09:08→20:22)
[2023-03-10] MEDS: ATORVASTATIN 40 MG TABLET PO (09:08)
[2023-03-10] MEDS: FLUTICASONE PROPIONATE 0.05% NA SPR 16 GM BTL (*BKC) 1 SPRAY NASAL ×2 (09:09→21:03)
--- NOTE | 2023-03-10 09:10 | PM.PNPUL ---
Progress Note: A&P Assessment and Plan (1) Acute respiratory failure with hypoxia and hypercapnia: Code(s): J96.01 - Acute respiratory failure with hypoxia; J96.02 - Acute respiratory failure with hypercapnia Status: Acute Assessment and Plan: A 72-year-old male presented with a clinical picture consistent with hypoxemic hypercapnic respiratory failure characterized by wheezing. Physical examination noted bronchospasm, which responded well to intravenous steroids. This is his second admission within a two-month timeframe, the previous admission also characterized by treatment for bronchospastic disease via antibiotics and steroids. He was released with a tapering course of prednisone. A notable decline in his respiratory status, including shortness of breath and wheezing, was observed upon cessation of the steroid regimen. In his current admission, he has been diagnosed with [id number] hypercapnic respiratory failure. Initial arterial blood gases yielded a pH of 7.34, pCO2 of 61.8, and PO2 of 108.3, while receiving 28% fraction of inspired oxygen. Management included intravenous steroids, short-acting bronchodilators, and non-invasive ventilation delivered through bilevel positive airway pressure set at 14/7. This approach resulted in significant improvements in his respiratory status. Follow-up arterial blood gases depicted a chronic respiratory acidosis which was well compensated. The patient does not have a historical record of asthma. However, a sleep study conducted in 2019 revealed severe sleep apnea with an apnea-hypopnea index (AHI) of 76.1, accompanied by multiple oxyhemoglobin desaturations. Attempts at continuous positive airway pressure (CPAP) titration were unsuccessful, warranting a recommendation for adaptive servo-ventilation (ASV) titration, however, the patient did not return for said studies. Reports from his suggest the presence of daytime somnolence, particularly in the afternoon. The evidence from the previous sleep study, combined with current arterial blood gas measures, point towards a diagnosis of obesity hypoventilation syndrome. It is plausible that the patient's chronic hypercapnia has contributed to his recent repeated hospitalizations. To prevent further progression and subsequent hospital readmissions, he could benefit from home ventilatory support. Considering his clinical scenario, ventilatory support via average volume-assured pressure support (AVAPS) may be more advantageous compared to traditional BiPAP treatment. (2) Sinusitis: Qualifiers: Sinusitis location: maxillary Chronicity: unspecified Qualified Code(s): J32.0 - Chronic maxillary sinusitis Code(s): J32.9 - Chronic sinusitis, unspecified Status: Acute (3) CHEMA (obstructive sleep apnea): Code(s): G47.33 - Obstructive sleep apnea (adult) (pediatric) Status: Acute Assessment and Plan: This patient has known obstructive sleep apnea which was found to be of severe degree by a sleep study in 2019. The patient has not been on any treatment for severe sleep apnea. Given the history of sleep apnea there may be an association between obstructive sleep apnea and wheezing. The hypoxia and fragmentation of sleep can cause systemic inflammation which can potentially increase the risk of bronchial hyperresponsiveness and wheezing. Subjective Date/time seen: 03/10/23 09:10 Interval history: Patient has no new respiratory symptoms. Underwent ApneaLink study last night on just supplemental oxygen at 3 liters/minute. Also had blood gases last p.m.. No cough or wheezing this a.m. remains afebrile. Review of Systems Review of Systems: All systems reviewed & are unremarkable except as noted in HPI and below Exam Narrative: GENERAL APPEARANCE: Well developed, well nourished, alert and cooperative, morbidly obese and appears to be in no acute distress while oxygen via nasal cannula SKIN: Inspectio
[2023-03-10] MEDS: CARBIDOPA/LEVODOPA 25/100 MG TABLET 4 TABLET PO ×3 (09:12→18:27)
[2023-03-10] MEDS: IPRATROPIUM BR 0.02% INH SOLN 0.5 MG/2.5 ML VIAL INHALATION ×3 (10:21→21:58)
[2023-03-10] MEDS: ALBUTEROL SULFATE NEB 2.5 MG/3 ML INH INHALATION ×3 (10:21→21:59)
--- NOTE | 2023-03-10 16:27 | PM.IMPN ---
Progress Note: A&P Assessment and Plan (1) Acute respiratory failure with hypoxia and hypercapnia: Code(s): J96.01 - Acute respiratory failure with hypoxia; J96.02 - Acute respiratory failure with hypercapnia Status: Acute Assessment and Plan: Patient presents with shortness of breath. His symptoms improved with the steroids last admission but worsened as steroids were being weaned and then stopped. ABG 7.34/62/108 on 2L. BiPAP started. Given steroids and neb treatments. CXR showing mild central pulm venous congestion. Repeat ABG 7.44/45/83 on BiPAP Chest CTA negative for large PEs or PNA. Doppler bilateral LE negative for DVT. Influenza, RSV and COVID PCR negative. 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 Echo showing EF 65-70% with Grade I diastolic dysfunction and mild pHTN. Speech therapy with MBS showed no concerns for aspirations Pulmonary consulted and appreciate their input. Continue Solu-Medrol and nebulizer treatments. Home with O2 and Prednisone. Pulmonary has signed off. Feel patient will need BiPAP at home since he is high risk for re-hospitalization. 03/10: Awaiting insurance authorization for [facility] at discharge (2) Elevated troponin: Code(s): R79.89 - Other specified abnormal findings of blood chemistry Status: Acute Assessment and Plan: Troponin is mildly elevated at 0.035 (upper limits of normal are 0.034). Second and 3rd values are normal. Mildly elevated troponin most likely related to demand ischemia from his hypoxia. EKG showed normal sinus with right axis deviation and right bundle branch block. No significant change from prior. The trivial elevation of the troponin is not significant. There were no acute concerns on tele. (3) CHEMA (obstructive sleep apnea): Code(s): G47.33 - Obstructive sleep apnea (adult) (pediatric) Status: Acute Assessment and Plan: Patient states he has never been told he has sleep apnea. States he had indeterminate sleep study in 2019. Record review however shows he has sleep study on 06/27/2018 showing extraordinarily severe CHEMA with significant central apnea as well that improved with titration. No optimal pressure was demonstrated. ASV titration was recommended as patient did have significant central apnea which worsened with pressure. He continued to have obstructive events so he has failed CPAP and BiPAP according to the report. Pulmonary consulted. Feel patient will need BiPAP at discharge (4) Sinusitis: Qualifiers: Sinusitis location: maxillary Chronicity: unspecified Qualified Code(s): J32.0 - Chronic maxillary sinusitis Code(s): J32.9 - Chronic sinusitis, unspecified Status: Acute Assessment and Plan: Patient felt to have stridor so CT soft tissue of the neck performed showing extensive sinus disease. Interestingly, CT soft tissue neck on 02/15/23 showing clear sinuses. Continue Augmentin Follow (5) Essential hypertension: Code(s): I10 - Essential (primary) hypertension Status: Acute Assessment and Plan: Patient's blood pressure was reviewed on 03/10 Blood pressure remains well controlled. Patient does not appear to be on home antihypertensives. Will monitor and initiate therapy if indicated but we need to use caution as patient does have history of orthostatic hypotension likely due to autonomic dysfunction with history of Parkinson's disease. Will continue to follow (6) Parkinsons disease: Code(s): G20 - Parkinson's disease Status: Acute Assessment and Plan: Stable. Sinemet has been resumed. Speech therapy with MBS showed no concerns for aspirations Continue PT/OT. Plan Code status -full DVT prophylaxis -Lovenox [place]
[2023-03-10 21:54] LABS: Pneumococcal Antigen Urine Not Detected (Not Detected)
[2023-03-11] VITALS (16 sets, daily range): BP systolic 126–162; BP diastolic 68–79; PULSE 65–90; RESP 14–18; TEMP 36.4–37.2; O2SAT 91–96
[2023-03-11 01:47] LABS: Legionella pneumophila Ag Ur Not Detected (Not Detected)
[2023-03-11] MEDS: ALBUTEROL SULFATE NEB 2.5 MG/3 ML INH INHALATION ×4 (02:41→20:55)
[2023-03-11] MEDS: IPRATROPIUM BR 0.02% INH SOLN 0.5 MG/2.5 ML VIAL INHALATION ×4 (02:42→20:55)
--- NOTE | 2023-03-11 08:41 | PM.PNPUL ---
Progress Note: A&P Assessment and Plan (1) Acute respiratory failure with hypoxia and hypercapnia: Code(s): J96.01 - Acute respiratory failure with hypoxia; J96.02 - Acute respiratory failure with hypercapnia Status: Acute Assessment and Plan: Respiratory status has been stable over the last 3 days. Overall respiratory status improved with BiPAP support at night. Plan: Will need to evaluate patient for home oxygen. Out of bed to chair. Wait for approval of home ventilator. (2) CHEMA (obstructive sleep apnea): Code(s): G47.33 - Obstructive sleep apnea (adult) (pediatric) Status: Acute Assessment and Plan: This patient has known obstructive sleep apnea which was found to be of severe degree by a sleep study in 2019. The patient has not been on any treatment for severe sleep apnea. Given the history of sleep apnea there may be an association between obstructive sleep apnea and wheezing. The hypoxia and fragmentation of sleep can cause systemic inflammation which can potentially increase the risk of bronchial hyperresponsiveness and wheezing. (3) Obesity hypoventilation syndrome: Code(s): E66.2 - Morbid (severe) obesity with alveolar hypoventilation Status: Acute Assessment and Plan: Our patient is a 72-year-old gentleman, who has been suffering from recurrent episodes of respiratory distress, manifesting as wheezing and dyspnea. Upon physical examination, evidence of bronchospasm was apparent, which was appropriately addressed with intravenous corticosteroids. Within the span of two months, he has been admitted twice with a similar clinical picture. In the previous episode, an antibiotic course along with corticosteroids was deployed to contend with his bronchospastic disease. However, following the termination of the steroid regimen, his respiratory status saw a discernible deterioration. Upon his recent admission, he was given a diagnosis of [id number] hypercapnic respiratory failure. The initial arterial blood gas analysis revealed a pH of 7.34, a pCO2 of 61.8, and a PO2 of 108.3, while being provided with 28% oxygen inspiration fraction. The management strategy instituted involved intravenous corticosteroids, short-acting bronchodilators, and noninvasive ventilation via bilevel positive airway pressure set at 14/7. There was a marked amelioration of his respiratory status following this intervention. However, following cessation of BIPAP, a subsequent arterial blood gas analysis confirmed the existence of compensated chronic respiratory acidosis. Previous sleep studies have indicated the presence of severe sleep apnea in the context of severe obesity (BMI: 44.5 kg/m2) and persistent daytime hypercapnia, substantiating the diagnosis of obesity hypoventilation syndrome. It is reasonable to hypothesize that this chronic daytime hypercapnia could be implicated in his repeated hospitalizations recently. To mitigate further clinical deterioration and potential rehospitalizations, implementing home ventilatory support would be a prudent initiative. Given this patient's particular clinical picture, average volume-assured pressure support (AVAPS) might be a more efficacious approach for long-term home ventilation, as compared to conventional BiPAP therapy. (4) Parkinsons disease: Code(s): G20 - Parkinson's disease Status: Acute Subjective Date/time seen: 03/11/23 08:41 Interval history: Patient has no new respiratory symptoms. Shortness of breath about the same. Continues to have mild cough but no wheezing. He is afebrile. He is about to undergo home oxygen evaluation. Review of Systems Review of Systems: All systems reviewed & are unremarkable except as noted in HPI and below (HPI and below) Exam Narrative: GENERAL APPEARANCE: Well developed, well nourished, alert and cooperative, morbidly obese and appears to be in no acute distress while oxygen via nasal cannula SKIN:
[2023-03-11] MEDS: methylPREDNISolone SOD SUCC 125 MG VIAL 60 MG IV PUSH ×2 (09:22→18:22)
[2023-03-11] MEDS: ENOXAPARIN 40 MG/0.4 ML SYRINGE SUB-Q (09:22)
[2023-03-11] MEDS: CARBIDOPA/LEVODOPA 25/100 MG TABLET 4 TABLET PO ×3 (09:23→18:23)
[2023-03-11] MEDS: AMOXICILLIN/CLAVULANATE K 875-125 MG TAB 1 TABLET PO ×2 (09:23→21:28)
[2023-03-11] MEDS: FLUTICASONE PROPIONATE 0.05% NA SPR 16 GM BTL (*BKC) 1 SPRAY NASAL ×2 (09:23→21:28)
[2023-03-11] MEDS: ATORVASTATIN 40 MG TABLET PO (09:23)
--- NOTE | 2023-03-11 15:32 | HOMEO2EVAL ---
Evaluation was performed at [facility] Home Oxygen Evaluation RC: Home Oxygen (O2) Evaluation Start: 03/10/23 14:03 Freq: ONCE Status: Active Protocol: RPE Activity Type Activity Date Activity User E-sign Co-sign Detail Recorded Client Recorded Date Recorded By Document 03/11/23 15:20 KRM [email or web address] 03/11/23 15:32 KRM Document 03/11/23 15:22 KRM [email or web address] 03/11/23 15:32 KRM Document 03/11/23 15:24 KRM [email or web address] 03/11/23 15:32 KRM 03/11/23 03/11/23 03/11/23 15:20 15:22 15:24 Home O2 Evaluation [Oxygen] -Test Phase Resting Exercise Exercise -Oxygen Delivery Room Air Room Air Room Air [Pulse Oximetry] -Pulse Oximetry (90-100 %) 93 91 95 [Pulse Rate] -Pulse Rate (60-100 beats/min) 84 90 84 [Evaluation] -Activity Tolerance Good Good [Exercise] -Ambulation Distance (feet) 200 -Ambulation Distance (meters) 60.95 [Charges] -Evaluation Charges O2 Evaluation by Pulmonary
--- NOTE | 2023-03-11 15:33 | PCRCNOTE ---
HOME O2 EVALUATION COMPLETED. NO O2 NEEDED AT REST OR WITH ACTIVITY.
--- NOTE | 2023-03-11 18:22 | P.PNIM_ITS ---
Progress Note: A&P Assessment and Plan (1) Acute respiratory failure with hypoxia and hypercapnia: Code(s): J96.01 - Acute respiratory failure with hypoxia; J96.02 - Acute respiratory failure with hypercapnia Status: Acute Assessment and Plan: Patient presents with shortness of breath. His symptoms improved with the steroids last admission but worsened as steroids were being weaned and then stopped. ABG 7.34/62/108 on 2L. BiPAP started. Given steroids and neb treatments. CXR showing mild central pulm venous congestion. Repeat ABG 7.44/45/83 on BiPAP Chest CTA negative for large PEs or PNA. Doppler bilateral LE negative for DVT. Influenza, RSV and COVID PCR negative. 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 Echo showing EF 65-70% with Grade I diastolic dysfunction and mild pHTN. Speech therapy with MBS showed no concerns for aspirations Pulmonary consulted and appreciate their input. Continue Solu-Medrol and nebulizer treatments. Home with O2 and Prednisone. Pulmonary has signed off. Feel patient will need BiPAP at home since he is high risk for re- hospitalization. 03/10: Awaiting insurance authorization for Trelegy at discharge 03/11: awaiting trelegy settings and ins auth (2) Elevated troponin: Code(s): R79.89 - Other specified abnormal findings of blood chemistry Status: Acute Assessment and Plan: Troponin is mildly elevated at 0.035 (upper limits of normal are 0.034). Second and 3rd values are normal. Mildly elevated troponin most likely related to demand ischemia from his hypoxia. EKG showed normal sinus with right axis deviation and right bundle branch block. No significant change from prior. The trivial elevation of the troponin is not significant. There were no acute concerns on tele. (3) CHEMA (obstructive sleep apnea): Code(s): G47.33 - Obstructive sleep apnea (adult) (pediatric) Status: Acute Assessment and Plan: Patient states he has never been told he has sleep apnea. States he had indeterminate sleep study in 2019. Record review however shows he has sleep study on 06/27/2018 showing extraordinarily severe CHEMA with significant central apnea as well that improved with titration. No optimal pressure was demonstrated. ASV titration was recommended as patient did have significant central apnea which worsened with pressure. He continued to have obstructive events so he has failed CPAP and BiPAP according to the report. Pulmonary consulted. Feel patient will need BiPAP at discharge (4) Sinusitis: Qualifiers: Sinusitis location: maxillary Chronicity: unspecified Qualified Code(s): J32.0 - Chronic maxillary sinusitis Code(s): J32.9 - Chronic sinusitis, unspecified Status: Acute Assessment and Plan: Patient felt to have stridor so CT soft tissue of the neck performed showing extensive sinus disease. Interestingly, CT soft tissue neck on 02/15/23 showing clear sinuses. Continue Augmentin Follow (5) Essential hypertension: Code(s): I10 - Essential (primary) hypertension Status: Acute Assessment and Plan: Patient's blood pressure was reviewed on 03/11 Blood pressure remains well controlled. Patient does not appear to be on home antihypertensives. Will monitor and initiate therapy if indicated but we need to use caution as patient does have history of orthostatic hypotension likely due to autonomic dysf
[2023-03-12 05:08] VITALS: PULSE 80; RESP 18; O2SAT 93
[2023-03-12 06:00] VITALS: BP 133/70; PULSE 72; RESP 18; TEMP 36.4; O2SAT 96
[2023-03-12 08:00] VITALS: PULSE 75; RESP 18; O2SAT 95
--- NOTE | 2023-03-12 09:49 | PM.PNPUL ---
Progress Note: A&P Assessment and Plan (1) Acute respiratory failure with hypoxia and hypercapnia: Code(s): J96.01 - Acute respiratory failure with hypoxia; J96.02 - Acute respiratory failure with hypercapnia Status: Acute Assessment and Plan: Respiratory status has been stable over the last 3 days. Overall respiratory status improved with BiPAP support at night. (2) CHEMA (obstructive sleep apnea): Code(s): G47.33 - Obstructive sleep apnea (adult) (pediatric) Status: Acute Assessment and Plan: This patient has known obstructive sleep apnea which was found to be of severe degree by a sleep study in 2019. The patient has not been on any treatment for severe sleep apnea. Given the history of sleep apnea there may be an association between obstructive sleep apnea and wheezing. The hypoxia and fragmentation of sleep can cause systemic inflammation which can potentially increase the risk of bronchial hyperresponsiveness and wheezing. (3) Obesity hypoventilation syndrome: Code(s): E66.2 - Morbid (severe) obesity with alveolar hypoventilation Status: Acute Assessment and Plan: Patient placed on home ventilator with AVAPS AE mode last night along with 2 L supplemental oxygen. ApneaLink showed no evidence of oxyhemoglobin desaturation. Average saturation was 94% and time with saturation less than 88% was 0 minutes. patient slept well. Plan: The patient can be discharged to go home with a home ventilator set to the same settings, and supplemental oxygen of 2 liters/minute to be incorporated into the ventilator at night. The patient will follow a tapering regimen of prednisone and a maintenance bronchodilator for his bronchospastic airway disease. Please refer to my note from March 09 for the outpatient regimen details. The patient is scheduled for a follow-up at [facility] by the end of this month. He already has an appointment to consult with a sailor in the outpatient clinic. I'll sign off now, but feel free to call if you have any queries. (4) Parkinsons disease: Code(s): G20 - Parkinson's disease Status: Acute Subjective Date/time seen: 03/12/23 09:49 Interval history: Patient has no new respiratory symptoms. Placed on home ventilator last night along with supplemental oxygen at 2 liters/minute. ApneaLink on those settings conducted. Has no cough or shortness of breath. Eager to go home Review of Systems Review of Systems: All systems reviewed & are unremarkable except as noted in HPI and below (HPI and below) Exam Narrative: GENERAL APPEARANCE: Well developed, well nourished, alert and cooperative, morbidly obese and appears to be in no acute distress while oxygen via nasal cannula SKIN: Inspection of the skin reveals no rashes, ulcerations or petechiae. HEENT: Sclerae anicteric and conjunctivae pink and moist. Extraocular movements were intact and pupils were equal, round. The oral mucosa, hard and soft palate, tongue and posterior pharynx were normal. NECK: Supple. There was no thyroid enlargement, and no tenderness, or masses were felt. CHEST: Normal AP diameter and normal contour without any kyphoscoliosis. LUNGS: Clear lungs bilaterally no wheezing. CARDIAC: There was a regular rate and rhythm without any murmurs, gallops, rubs. ABDOMEN: Soft and nontender with normal bowel sounds. There was no organomegaly. LYMPH NODES: No lymphadenopathy was appreciated in the neck. EXTREMITIES: No cyanosis, clubbing or edema. NEUROLOGIC: Alert and oriented x 3. Normal affect. Objective Data Vital Signs Vital Signs: Vital Signs - 24 hr 03/11/23 13:46 03/11/23 14:09 03/11/23 14:11 Temperature 37.2 C Pulse Rate 84 78 78 Respiratory Rate 14 18 18 Blood Pressure 127/68 Pulse Oximetry 93 92 Oxygen Delivery Room Air 03/11/23 14:24 03/11/23 15:20 03/11/23 15:22 Temperature Pulse Rate 76 84 90 Respiratory Rate 18 Blood Pr
[2023-03-12] MEDS: methylPREDNISolone SOD SUCC 125 MG VIAL 60 MG IV PUSH (09:55)
[2023-03-12] MEDS: AMOXICILLIN/CLAVULANATE K 875-125 MG TAB 1 TABLET PO (09:55)
[2023-03-12] MEDS: CARBIDOPA/LEVODOPA 25/100 MG TABLET 4 TABLET PO ×2 (09:55→14:26)
--- NOTE | 2023-03-12 09:55 | PM.DS ---
DS: Admitting Diagnosis Discharge Date 03/12/23 Admitting Diagnosis Shortness of breath DS: Discharge Diagnosis Discharge Diagnosis (1) Acute respiratory failure with hypoxia and hypercapnia: Code(s): J96.01 - Acute respiratory failure with hypoxia; J96.02 - Acute respiratory failure with hypercapnia Status: Acute Assessment and Plan: Patient presents with shortness of breath. His symptoms improved with the steroids last admission but worsened as steroids were being weaned and then stopped. ABG 7.34/62/108 on 2L. BiPAP started. Given steroids and neb treatments. CXR showing mild central pulm venous congestion. Repeat ABG 7.44/45/83 on BiPAP Chest CTA negative for large PEs or PNA. Doppler bilateral LE negative for DVT. Influenza, RSV and COVID PCR negative. 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 Echo showing EF 65-70% with Grade I diastolic dysfunction and mild pHTN. Speech therapy with MBS showed no concerns for aspirations Pulmonary consulted and appreciate their input. Continue Solu-Medrol and nebulizer treatments. Home with O2 and Prednisone. Pulmonary has signed off. Feel patient will need BiPAP at home since he is high risk for re-hospitalization. 03/10: Awaiting insurance authorization for Trelegy at discharge 03/11: awaiting trelegy settings and ins auth (2) Elevated troponin: Code(s): R79.89 - Other specified abnormal findings of blood chemistry Status: Acute Assessment and Plan: Troponin is mildly elevated at 0.035 (upper limits of normal are 0.034). Second and 3rd values are normal. Mildly elevated troponin most likely related to demand ischemia from his hypoxia. EKG showed normal sinus with right axis deviation and right bundle branch block. No significant change from prior. The trivial elevation of the troponin is not significant. There were no acute concerns on tele. (3) CHEMA (obstructive sleep apnea): Code(s): G47.33 - Obstructive sleep apnea (adult) (pediatric) Status: Acute Assessment and Plan: Patient states he has never been told he has sleep apnea. States he had indeterminate sleep study in 2019. Record review however shows he has sleep study on 06/27/2018 showing extraordinarily severe CHEMA with significant central apnea as well that improved with titration. No optimal pressure was demonstrated. ASV titration was recommended as patient did have significant central apnea which worsened with pressure. He continued to have obstructive events so he has failed CPAP and BiPAP according to the report. Pulmonary consulted. Feel patient will need BiPAP at discharge (4) Sinusitis: Qualifiers: Sinusitis location: maxillary Chronicity: unspecified Qualified Code(s): J32.0 - Chronic maxillary sinusitis Code(s): J32.9 - Chronic sinusitis, unspecified Status: Acute Assessment and Plan: Patient felt to have stridor so CT soft tissue of the neck performed showing extensive sinus disease. Interestingly, CT soft tissue neck on 02/15/23 showing clear sinuses. Continue Augmentin Follow (5) Essential hypertension: Code(s): I10 - Essential (primary) hypertension Status: Acute Assessment and Plan: Patient's blood pressure was reviewed on 03/11 Blood pressure remains well controlled. Patient does not appear to be on home antihypertensives. Will monitor and initiate therapy if indicated but we need to use caution as patient does have history of orthostatic hypotension likely due to autonomic dysfunction with history of Parkinson's disease. Will continue to follow (6) Parkinsons disease: Code(s): G20 - Parkinson's disease Status: Acute Assessment and Plan: Stable. Sinemet has been resumed.
[2023-03-12] MEDS: ATORVASTATIN 40 MG TABLET PO (09:56)
[2023-03-12] MEDS: ENOXAPARIN 40 MG/0.4 ML SYRINGE SUB-Q (09:56)
[2023-03-12] MEDS: FLUTICASONE PROPIONATE 0.05% NA SPR 16 GM BTL (*BKC) 1 SPRAY NASAL (09:56)
[2023-03-12 10:10] VITALS: PULSE 75; RESP 18
[2023-03-12] MEDS: IPRATROPIUM BR 0.02% INH SOLN 0.5 MG/2.5 ML VIAL INHALATION (10:10)
[2023-03-12] MEDS: ALBUTEROL SULFATE NEB 2.5 MG/3 ML INH INHALATION (10:10)
[2023-03-12 10:11] VITALS: O2SAT 95
== END 2023-03-12 16:25 | disposition home or self-care (01) | DRG 189 ==
LOC: ANHED 17:02 → ANHIMU 20:56 → ANH3MEDSUR 03-08 21:57
PROVIDERS: Internal Medicine; Admitting Provider General Practice; Emergency Provider Emergency Medicine; PCP Internal Medicine; Visit Provider Student in an Organized Health Care Education/Training Program
DX: J96.01 Acute respiratory failure with hypoxia (principal); Z68.41 Body mass index [BMI] 40.0-44.9, adult; E66.2 Morbid (severe) obesity with alveolar hypoventilation; J32.0 Chronic maxillary sinusitis; J96.02 Acute respiratory failure with hypercapnia; E78.5 Hyperlipidemia, unspecified; I10 Essential (primary) hypertension; G20.A1 Parkinson's disease without dyskinesia, without mention of fluctuations; M19.90 Unspecified osteoarthritis, unspecified site; R79.89 Other specified abnormal findings of blood chemistry; Z86.711 Personal history of pulmonary embolism; Z79.82 Long term (current) use of aspirin; Z96.653 Presence of artificial knee joint, bilateral; Z87.891 Personal history of nicotine dependence; Z20.822 Contact with and (suspected) exposure to COVID-19
CPT/HCPCS: 36415; 36600; 70490; 71045; 71275; 80048; 80053; 82375; 82805; 83050; 83880; 84484; 85025; 85380; 86606; 86703; 86803; 87340; 87385; 87449; 87637; 87899; 92610; 92611; 93005; 93970; 94002; 94003; 94618; 94640; 94762; 96374; 96375; 97110; 97116; 97161; 97165; 97530; 97535; 99285; A9270; C8929; G0378; G0432; J1650; J2930; Q9957; Q9967

== ENCOUNTER 2023-04-13 12:18 | Outpatient (CLI) | payer MEDICARE, SELFPAY ==
--- NOTE | 2023-04-14 16:47 | WPDPFTINT ---
PFT Procedure Performed PFT Procedure Performed Spirometry with Pre/Post Bronchodilator Plethysmography (Lung Vol) Diffusing Cap (DLCO) Flow Vol Loop PFT Interpretation Lung volumes were measured with the body plethysmography method. Lung volumes are unremarkable. Spirometry showed normal forced vital capacity and a normal FEV1 to FVC ratio of 63%. Following administration of a bronchodilator there was no significant increase in the expiratory flow rates. Lung diffusion capacity is within the normal range at 93% predicted. The flow-volume loop is unremarkable. In comparison to previous study in 2019 the post bronchodilator FVC is now greater by approximately 0.2 L but post bronchodilator FEV1 is now lower by approximately 0.2 L. Impression: Spirometry, lung volumes, and lung diffusion capacity all within the normal range.
--- NOTE | 2023-04-14 16:52 | WPDSIXMINUTE ---
Six Minute Walk Procedure Procedure Performed Pulmonary Stress Test (6 min walk) Six Minute Walk Six Minute Walk: This 6 minute walk test was carried out with the patient breathing ambient air. The baseline pre walk oxyhemoglobin saturation was 94%. The patient walked 213 m with no stops during testing. During the walk the oxyhemoglobin saturation remained in the range of 94% to 95%. Impression: No evidence of oxyhemoglobin desaturation on this testing.
== END 2023-04-13 12:19 | disposition home or self-care (01) ==
LOC: ANHPFT 12:19
PROVIDERS: PCP Internal Medicine; Visit Provider Internal Medicine Critical Care Medicine
DX: R06.02 Shortness of breath (principal)
CPT/HCPCS: 94060; 94618; 94726; 94729

== ENCOUNTER 2023-04-27 04:51 | Inpatient (IN) | payer MEDICARE, SELFPAY ==
[2023-04-27] VITALS (50 sets, daily range): BP systolic 114–149; BP diastolic 59–109; PULSE 85–108; RESP 13–26; TEMP 36.3–36.5; O2SAT 88–100; BMI 45.1
--- NOTE | ~2023-04-27 | US_ITS ---
EXAMINATION: US venous doppler [facility] DATE: 04/28/2023 14:09 INDICATION: Lower limb pain and swelling. TECHNIQUE: Grayscale ultrasound images without and with compression and Doppler ultrasound images of the bilateral lower extremity veins were obtained. COMPARISON: Ultrasound 03/07/2023 FINDINGS: The visualized portions of right common femoral vein, profunda (deep) femoral vein, femoral vein, pop liteal vein, peroneal veins, posterior tibial veins, and greater saphenous vein outflow are patent. The visualized portions of left common femoral vein, profunda femoral vein, femoral vein, popliteal v ein, peroneal veins, posterior tibial veins, and greater saphenous vein outflow are patent. IMPRESSION: 1. No deep venous thrombosis. Reviewed, dictated and finalized at location A. ICAL DOCUMENTATION SPEC
--- NOTE | ~2023-04-27 | XR_ITS ---
Portable chest x-ray Comparison: 03/06/2023 Clinical History: Shortness of breath Findings: Lungs are clear, without focal consolidation or pleural effusion. Cardiomediastinal silho uette is stable. Bones and soft tissues are unremarkable. Impression: Clear lungs. Reviewed, dictated and finalized at location . CHOCOLATE DIPPER Impression: Clear lungs.
--- NOTE | 2023-04-27 04:56 | ECG_ITS ---
Measurements Intervals [place] Rate: 96 P: 62 TX: 177 QRS: 93 QRSD: 146 T: 19 QT: 370 QTc: 469 Interpretive Statements SINUS RHYTHM INDETERMINATE AXIS RIGHT BUNDLE BRANCH BLOCK [120+ ms QRS DURATION, UPRIGHT V1, 40+ ms S IN I/aVL/V4/V5/V6] COMPARED TO ECG 03/06/2023 15:33:42 NO SIGNIFICANT CHANGES Electronically Signed On 04-27-2023 12:36:57 PUBLIC RECORDS OFFICER by Rajwinder Bello M.D.
[2023-04-27 05:16] LABS: Basophils Percent Auto 0.5 % (0.2-1.2); Eosinophils Absolute Auto 0.9 K/mm3 (0-0.3); Eosinophils Percent Auto 10.1 % (0-4.4); Hematocrit 45.3 % (42.0-52.0); Hemoglobin 14.1 g/dL (14.0-18.0); Immature Granulocyte Absolute 0.04 K/mm3 (0.00-0.031); Immature Granulocyte Percent A 0.5 % (0-0.5); Lymphocytes Absolute Auto 1.53 K/mm3 (0.9-3.2); Lymphocytes Percent Auto 17.8 % (18.3-44.2); Mean Corpuscular HGB Conc 31.1 g/dl (32-36); Mean Corpuscular Hemoglobin 30.2 pg (26-34); Mean Platelet Volume 10.3 fl (7.4-10.4); Monocytes Absolute Auto 0.6 K/mm3 (0.1-0.6); Monocytes Percent Auto 7.2 % (2.6-8.5); Neutrophils Absolute Auto 5.5 K/mm3 (1.3-6.7); Neutrophils Percent Auto 63.9 % (45.5-73.1); Platelet Count Result 159 k/mm3 (150-375); Red Blood Count 4.67 M/mm3 (4.6-6.20); Red Cell Distribution Width 15.4 % (11.5-14.5); White Blood Count 8.6 K/mm3 (4.5-10.0)
[2023-04-27 05:33] LABS: Alanine Aminotransferase 7 U/L (6-50); Alkaline Phosphatase 79 U/L (38-126); Anion Gap 3 mmol/L (8-16); Aspartate Amino Transferase 28 U/L (17-59); Bilirubin,Total 0.8 mg/dL (0.2-1.3); Blood Urea Nitrogen 12 mg/dL (9-20); Calcium 9.1 mg/dL (8.4-10.2); Carbon Dioxide 36 mmol/L (22-30); Chloride 98 mmol/L (98-107); Estimated CRCL calculation 127 ml/min; Estimated Glomerular Filt Rate > 60; Glucose 131 mg/dL (65-110); Potassium 3.6 mmol/L (3.4-5.0); Sodium 137 mmol/L (137-145)
--- NOTE | 2023-04-27 05:33 | ED.GENADULT ---
HPI - General Adult General Chief complaint: Shortness of Breath/Dyspnea Stated complaint: short of breath Time Seen by Provider: 04/27/23 05:21 History of Present Illness HPI narrative: This is a 72-year-old male with COPD and poor baseline respiratory status presenting with shortness of breath. Patient was on his trilogy at home when he got up to use the restroom. He then became acutely shortness short of breath. Family that put him back on his [facility] via private vehicle. At this time patient is complaining of shortness of breath but denies fevers chills URI symptoms,chest pain abdominal pain urinary symptoms. Patient has chronic lower extremity edema. Related Data Home Medications Medication Instructions Recorded Confirmed aspirin 81 mg tablet,delayed 81 mg PO DAILY 06/20/21 03/30/23 release carbidopa 25 mg-levodopa 100 mg 4 tablet PO TID 07/23/21 03/30/23 tablet atorvastatin 40 mg tablet 40 mg PO DAILY 02/15/23 03/30/23 pseudoephedrine-guaifenesin ER 120 1 tablet PO Q12H PRN Cough 03/06/23 03/30/23 mg-1,200 mg tab,extend release 12hr (Mucinex D Maximum Strength) Allergies Allergy/AdvReac Type Severity Reaction Status Date / Time No Known Allergies Allergy Verified 03/30/23 10:15 [facility] Past Medical History Medical History Arthritis Diastolic dysfunction Hypertension Obesity, morbid, BMI 40.0-49.9 Orthostatic hypotension CHEMA (obstructive sleep apnea) Parkinsons disease Pulmonary embolism (2018) Surgical History Surgical History History of ankle surgery ORIF left ankle fracture. History of bilateral knee arthroplasty History of lumbar discectomy History of tonsillectomy Family History Family History Mother Hypertension Pulmonary embolism Father Acute myocardial infarction Social History Social History Social History: Surrogate medical decision maker: Yareli Guardado, spouse. Code status: Full code. Smoking packs per day: 1 Smoking cigarettes per day: 20.0 Years smoked: 2 Smoking pack-years: 2.00 Smoking status: Former smoker Tobacco type: cigarettes Smoking end date: 03/01/1967 Alcohol intake: never Substance use: never Substance use type: does not use Do You Feel Safe in your Home?: Yes Lack of Transportation: No Lack of Food: Never True Current Housing: I Have Housing Concerned About Future Housing: No Difficulty Paying Gas/Electric Bills: No Difficulty Paying for Meds: No Currently Unemployed: No Education: High School Diploma/GED Difficulty w/ Childcare or Family Care: No Living arrangements: with family Additional living arrangements comments: [place] Additional occupation/education comments: Retired from [employer]. Spiritual care concerns: Yes (pentacostal) Exam Narrative: APPEARANCE: Patient is in claudine respiratory distress, Head: atraumatic. EYES: EOMI, NOSE: Atraumatic NECK: Trachea midline RESPIRATORY: tachypneic, wheezing in all [place], stridor CARDIOVASCULAR: RRR, Chronic appearing edema of the lower extremities ABDOMINAL: Non-distended MUSCULOSKELETAl: No obvious deformities NEURO: Alert. Moving 4/4 extremities SKIN:: Warm, dry. Normal color PSYCHIATRIC: anxious Course Vital Signs Vital signs: Vital Signs Temperature 97.6 F 04/27/23 04:56 Pulse Rate 97 04/27/23 04:56 Respiratory Rate 24 H 04/27/23 04:56 Blood Pressure 144/62 H 04/27/23 04:56 Pulse Oximetry 92 04/27/23 04:56 Oxygen Delivery Room Air 04/27/23 04:56 Temperature 97.6 F 04/27/23 04:56 Pulse Rate 90 04/27/23 06:05 Respiratory Rate 18 04/27/23 06:05 Blood Pressure 114/66 04/27/23 06:05 Pulse Oximetry 99 04/27/23 06:05 Oxygen Delivery
[2023-04-27] MEDS: MAGNESIUM SULF 2 GM/WATER 50ML 2 GM/50 ML BAG IVPB (05:39)
[2023-04-27] MEDS: dexAMETHasone SOD PHOS INJ 10 MG/ML 1 ML VIAL IV PUSH (05:39)
[2023-04-27 05:48] LABS: Base Excess ABG 5.3 mEq/l (+/-2.0); Fractional Inspired Oxygen 28 %; HCO3 ABG 31.9 mEq/l (22.0-26.0); Oxygen Content ABG 19.6 %vol (16.0-22.0); Oxyhemoglobin 95.3 % THb (90.0-100.0); PCO2 ABG 54.8 mmHg (35.0-45.0); PO2 FiO2 Ratio Arterial Blood 3.39 %; Total Hemoglobin 14.6 g/dL (12.0-18.0); pH ABG 7.383 (7.350-7.450)
[2023-04-27] MEDS: ALBUTEROL SULFATE NEB 2.5 MG/3 ML INH 10 MG INHALATION (05:50)
[2023-04-27] MEDS: IPRATROPIUM BR 0.02% INH SOLN 0.5 MG/2.5 ML VIAL 1 MG INHALATION (05:52)
[2023-04-27 05:55] LABS: Device NON-INVASIVE VENT; Modified Allen's Test Pass; Site Drawn RIGHT RADIAL
[2023-04-27 05:59] LABS: Non-Invasive Vent Rate 12 /MIN
[2023-04-27 06:00] LABS: Non-Invasive Expiratory Pressure 5 CMH2O
[2023-04-27 06:24] LABS: Influenza A QL RT-PCR Negative (Negative); Influenza B QL RT-PCR Negative (Negative); RSV RNA, RT-PCR Negative (Negative); SARS-CoV-2 RNA PCR Negative (Negative)
--- NOTE | 2023-04-27 08:22 | PC.NURSE ---
this RN called dietary and ordered a breakfast tray for pt at this time
[2023-04-27] MEDS: methylPREDNISolone SOD SUCC 125 MG VIAL 60 MG IV PUSH ×2 (12:25→17:27)
[2023-04-27] MEDS: IPRATROPIUM 0.5 MG/ALBUTEROL SULFATE 2.5 MG AMPUL.NEB 3 ML INHALATION ×2 (14:19→19:35)
--- NOTE | 2023-04-27 15:41 | ADMGEN ---
This patient, Joseph Guardado, was admitted to IMU Room 209-01. Patient/family oriented to hospital policies and general routines including ID bracelet, bed and alarms, visiting hours, pain management, procedures, bathroom and other care routines, personal items, smoking policy, room service/diet, and visiting hours. Information on how to activate the Rapid Response Team has been discussed. Patient/Family are encouraged to report perceived risks to care and to ask questions if they do not understand what they are told or what they should do.
--- NOTE | 2023-04-27 18:20 | PM.IMHP ---
H&P: HPI History of Present Illness Date/Time: 04/27/23 18:20 Chief Complaint: Shortness of breath Narrative: This is a pleasant 72-year-old male with a history of morbid obesity, hypertension, CHEMA recently placed trilogy at home with 2 L bleed in, obesity hypoventilation syndrome, chronic stasis, history of orthostatic hypotension, diastolic dysfunction via echo in 03/24,, Parkinson's disease. The patient has been in an out of hospital admissions last being March 2023 with acute hypoxic respiratory failure. He was sent home with trilogy and developed sudden onset of shortness of breath. He is accompanied by his Yareli and the daughter. They report his oxygen via pulse oximetry was in the 70s and subsequently brought into the ER via private vehicle. The patient's outpatient auto bumper straightener is Dr. Branch, he has had recent PFTs and 6 minute walk test. In [facility] he was placed on BiPAP to which is his dyspnea improved somewhat. He reports a cough at baseline with intermittent production of clear sputum. Review of Systems Review of Systems: All systems reviewed & are unremarkable except as noted in HPI and below (Subjective) [facility] Past Medical History Medical History (Updated 04/27/23 @ 18:25 by Soraida Montes MD) Arthritis Diastolic dysfunction Hypertension Obesity, morbid, BMI 40.0-49.9 Orthostatic hypotension CHEMA (obstructive sleep apnea) Parkinsons disease Pulmonary embolism (2018) Surgical History Surgical History History of ankle surgery ORIF left ankle fracture. History of bilateral knee arthroplasty History of lumbar discectomy History of tonsillectomy Family History Family History Mother Hypertension Pulmonary embolism Father Acute myocardial infarction Social History Social History Social History: Surrogate medical decision maker: Yareli Guardado, spouse. Code status: Full code. Smoking packs per day: 1 Smoking cigarettes per day: 20.0 Years smoked: 2 Smoking pack-years: 2.00 Smoking status: Never smoker Tobacco type: cigarettes Smoking end date: 03/01/1967 Alcohol intake: never Substance use: never Substance use type: does not use Do You Feel Safe in your Home?: Yes Lack of Transportation: No Lack of Food: Never True Current Housing: I Have Housing Concerned About Future Housing: No Difficulty Paying Gas/Electric Bills: No Difficulty Paying for Meds: No Currently Unemployed: No Education: High School Diploma/GED Difficulty w/ Childcare or Family Care: No Living arrangements: with family Additional living arrangements comments: [place] Additional occupation/education comments: Retired from [employer]. Spiritual care concerns: No (Latter-Day) Meds Home Medications and Allergies Home Medications Medication Instructions Recorded Confirmed Type aspirin 81 mg tablet,delayed 81 mg PO DAILY 06/20/21 04/27/23 History release carbidopa 25 mg-levodopa 100 mg 4 tablet PO TID 07/23/21 04/27/23 History tablet atorvastatin 40 mg tablet 40 mg PO DAILY 02/15/23 04/27/23 History albuterol sulfate 2.5 mg/3 mL 2.5 mg (3 mL) inhalation TID PRN 02/18/23 04/27/23 Rx (0.083 %) solution for nebulization shortness of breath or wheezing #75 mL pseudoephedrine-guaifenesin ER 120 1 tablet PO Q12H PRN Cough 03/06/23 04/27/23 History mg-1,200 mg tab,extend release 12hr (Mucinex D Maximum Strength) Ventolin HFA 90 mcg/actuation 2 puff inhalation Q4-6H PRN SOB or 04/15/23 04/27/23 Rx aerosol inhaler (albuterol sulfate) wheezing #18 grams ipratropium bromide 0.02 % 0.5 mg (2.5 mL) inhalation TID PRN 04/15/23 04/27/23 Rx solution for inhalation Shortness Of Breath #75 mL furosemide 20 mg tablet 20 mg PO DAILY 04/27/23 04/27/23 History metolazone 5 mg
[2023-04-27] MEDS: CARBIDOPA/LEVODOPA 25/100 MG TABLET 4 TABLET PO (18:44)
[2023-04-27] MEDS: ATORVASTATIN 40 MG TABLET PO (21:24)
[2023-04-28] VITALS (25 sets, daily range): BP systolic 124–134; BP diastolic 56–95; PULSE 75–95; RESP 15–21; TEMP 36–36.8; O2SAT 94–100
[2023-04-28] MEDS: methylPREDNISolone SOD SUCC 125 MG VIAL 60 MG IV PUSH ×2 (00:51→06:03)
[2023-04-28] MEDS: IPRATROPIUM 0.5 MG/ALBUTEROL SULFATE 2.5 MG AMPUL.NEB 3 ML INHALATION ×4 (01:48→20:18)
[2023-04-28 05:19] LABS: Basophils Percent Auto 0.1 % (0.2-1.2); Eosinophils Percent Auto 0.1 % (0-4.4); Immature Granulocyte Percent A 0.9 % (0-0.5); Lymphocytes Absolute Auto 0.83 K/mm3 (0.9-3.2); Lymphocytes Percent Auto 7.5 % (18.3-44.2); Mean Corpuscular HGB Conc 31.1 g/dl (32-36); Mean Corpuscular Hemoglobin 30.2 pg (26-34); Mean Platelet Volume 10.5 fl (7.4-10.4); Monocytes Absolute Auto 0.3 K/mm3 (0.1-0.6); Monocytes Percent Auto 2.4 % (2.6-8.5); Neutrophils Absolute Auto 9.8 K/mm3 (1.3-6.7); Platelet Count Result 161 k/mm3 (150-375); Red Blood Count 4.64 M/mm3 (4.6-6.20); Red Cell Distribution Width 15.2 % (11.5-14.5)
[2023-04-28 05:36] LABS: Anion Gap 2 mmol/L (8-16); Blood Urea Nitrogen 14 mg/dL (9-20); Calcium 9.5 mg/dL (8.4-10.2); Carbon Dioxide 35 mmol/L (22-30); Chloride 99 mmol/L (98-107); Estimated CRCL calculation 125 ml/min; Estimated Glomerular Filt Rate > 60; Glucose 163 mg/dL (65-110); Magnesium 2.4 mg/dL (1.6-2.3); Sodium 136 mmol/L (137-145)
--- NOTE | 2023-04-28 08:35 | PM.IMPN ---
Progress Note: A&P Assessment and Plan (1) Acute respiratory failure with hypoxia and hypercapnia: Code(s): J96.01 - Acute respiratory failure with hypoxia; J96.02 - Acute respiratory failure with hypercapnia Status: Acute Assessment and Plan: Appreciate pulmonology consultation, started on Augmentin Will be discharged on steroid taper Check home O2 eval (2) Obesity hypoventilation syndrome: Code(s): E66.2 - Morbid (severe) obesity with alveolar hypoventilation Status: Acute (3) CHEMA (obstructive sleep apnea): Code(s): G47.33 - Obstructive sleep apnea (adult) (pediatric) Status: Acute (4) Parkinsons disease: Code(s): G20 - Parkinson's disease Status: Acute (5) Essential hypertension: Code(s): I10 - Essential (primary) hypertension Status: Acute Assessment and Plan: Blood pressures reviewed 04/28 (6) Orthostatic hypotension: Code(s): I95.1 - Orthostatic hypotension Status: Acute Plan 04/27: The patient's outpatient training and quality manager is Dr. Branch, he has had recent PFTs and 6 minute walk test. In [facility] he was placed on BiPAP to which his dyspnea improved somewhat. His chest x-ray was unrevealing with a WBC 8.6, afebrile. ABG revealed pH of 7.38 with the pCO2 of 54.8 PO2 95 and bicarb 31.9. Of note, he has a chronic cough with intermittent production of clear sputum which has not changed much. Patient has acute hypoxic and hypercarbic respiratory failure he does appear to be a chronic retainer and looks to be fully compensated. Will keep him on continuous BiPAP with breaks for meals and repeat ABG noted. For now will continue DuoNeb scheduled q.4 hours along with Solu-Medrol. His outpatient training and quality manager is Dr. Branch and in light of his multiple readmissions will consult pulmonology for help in optimization. 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 Manager Of Medical has been aware of his eosinophilia. On 03/30/2023 his Aspergillus antibodies resulted negative. On this admission a influenza, RSV, COVID PCR resulted negative. He has been tested for pulmonary embolism multiple times in the past few months so we will forego repeating this test again at the moment. As for his hypertension, it is currently controlled. Per the report of the the patient was placed on metolazone and Lasix for his lower extremity edema. He does have positive ortho stasis per the family as well which is likely due to Parkinson's. Hold his diuretics for now as this would place him at risk for syncope and falls. He is inevitably going to have chronic stasis due to his morbid obesity. He does not appear to be in a acutely decompensated heart failure picture. Diastolic dysfunction noted on echocardiogram in March 2023. Resume his home meds for Parkinson's. FEN: Saline lock IV. Cardiac diet GI prophylaxis: Not indicated DVT prophylaxis: Lovenox 40 mg q.day Lines: Peripheral IV Code Status: Full code Dispo: Stable in IMU Subjective Date/time seen: 04/28/23 08:35 Interval history: 72-year-old male with a history of morbid obesity, hypertension, CHEMA recently placed trilogy at home with 2 L bleed in, obesity hypoventilation syndrome, chronic stasis, history of orthostatic hypotension, diastolic dysfunction via echo in 03/24,, Parkinson's disease. The patient has been in an out of hospital admissions last being March 2023 with acute hypoxic respiratory failure. He was sent home with trilogy and developed sudden onset of shortness of breath. He is accompanied by his Yareli and the daughter. They report his oxygen via pulse oximetry was in the 70s and subsequently brought into the ER via private vehicle. No overnight events noted. No chest pain or shortness of breath. No nausea, vomiting or diarrhea. No fevers or chills. Still with some SOB. Fee
[2023-04-28] MEDS: CARBIDOPA/LEVODOPA 25/100 MG TABLET 4 TABLET PO ×3 (09:01→17:36)
[2023-04-28] MEDS: ENOXAPARIN 40 MG/0.4 ML SYRINGE SUB-Q (09:02)
[2023-04-28] MEDS: ASPIRIN 81 MG ENTERIC TABLET PO (09:02)
--- NOTE | 2023-04-28 11:01 | PM.CNPUL ---
Assessment and Plan Assessment and plan (1) Shortness of Breath: Code(s): R06.02 - Shortness of breath Status: Acute Assessment and Plan: A 72-year-old male patient, who has a medical history of obesity hypoventilation syndrome, is currently on home ventilatory support and supplemental oxygen at night. He also has a history of Parkinson's disease, but recent video swallow study showed no evidence of aspiration. He presented with a cough, wheezing, and shortness of breath. Physical examination revealed rhonchi and wheezing, and his CBC showed eosinophilia. Considering the patient's history of recurrent bronchospasm requiring hospitalization approximately three times in the last three months, coupled with eosinophilia, an underlying obstructive airway disease such as asthma could be suggested. The patient is not on any maintenance bronchodilators at home, only using short-acting bronchodilators. The treatment plan is as follows: The patient's respiratory status has shown some improvement over the last 24 hours. I plan to transition him to oral steroids starting from tomorrow morning. The use of short-acting bronchodilators four times a day while awake will be continued. It is necessary to evaluate for lower extremity deep vein thrombosis (DVT). I would introduce an antibiotic such as Augmentin while waiting for the results of the sputum culture and MRSA screening. He will continue with current BiPAP settings at night and p.r.n. during the day. I will follow up on the patient's progress along with you. (2) Obesity hypoventilation syndrome: Code(s): E66.2 - Morbid (severe) obesity with alveolar hypoventilation Status: Acute (3) Acute respiratory failure with hypoxia and hypercapnia: Code(s): J96.01 - Acute respiratory failure with hypoxia; J96.02 - Acute respiratory failure with hypercapnia Status: Acute (4) Parkinsons disease: Code(s): G20 - Parkinson's disease Status: Acute History of Present Illness History of Present Illness Consult date: 04/28/23 Chief complaint: hypoxia Narrative: A 72-year-old male patient, who I am familiar with due to his past hospitalizations, presented with breathlessness. His medical history includes obesity and obesity hypoventilation syndrome and he has been using home ventilatory support for about two months. His prior hospital visits revealed hypercapnic respiratory failure, linked to his obesity hypoventilation. He was in his usual health condition until the day of admission when he began experiencing exertional breathlessness, coupled with wheezing and an escalating cough. However, he was unable to expectorate any phlegm, and reported no chest pain, fever or chills. Upon arrival at the emergency room, his chest x-ray revealed no new infiltrates. Arterial blood gases indicated a well-compensated hypercapnic respiratory failure, although it's uncertain if the blood gases were collected while the patient was on BiPAP support. Eosinophilia noted on his CBC. The patient received treatment with intravenous steroids and short-acting bronchodilators, likely for obstructive airway disease. It should be noted that the patient was hospitalized twice within the past three months for similar symptoms, hinting at a bronchospastic ailment marked by coughing and wheezing. Despite this, the patient has no known history of asthma. He does have a history of Parkinson's disease, but a video swallow study found no evidence of aspiration that could be causing the bronchospasm episodes. The patient is on home treatment with short-acting bronchodilators and uses his trilogy ventilator nightly. A recent overnight oximetry test showed mild oxyhemoglobin desaturation and he was prescribed oxygen at a rate of 2 liters per minute during the night. A CT pulmonary angiography done at a different hospital roughly two weeks ago showed no signs of pulmonary embolism or fresh lung infiltrates. Review of
[2023-04-28 15:25] LABS: MRSA (PCR) NOT DETECTED (NOT DETECTE)
--- NOTE | 2023-04-28 18:33 | PC.NURSE ---
orders for medical status - pt to move to room 340- report given to Ruthie RN- at bedside
--- NOTE | 2023-04-28 19:23 | PC.NURSE ---
1850- transferred to room 340 via w/c -accompanied by staff and family- belongings with pt
[2023-04-28] MEDS: AMOXICILLIN/CLAVULANATE K 875-125 MG TAB 1 TABLET PO (21:24)
[2023-04-28] MEDS: ATORVASTATIN 40 MG TABLET PO (21:24)
[2023-04-29] VITALS (13 sets, daily range): BP systolic 116–130; BP diastolic 60–76; PULSE 68–100; RESP 16–24; TEMP 36–36.8; O2SAT 92–98
[2023-04-29] MEDS: IPRATROPIUM 0.5 MG/ALBUTEROL SULFATE 2.5 MG AMPUL.NEB 3 ML INHALATION ×4 (02:08→21:39)
[2023-04-29 06:16] LABS: Basophils Percent Auto 0.2 % (0.2-1.2); Eosinophils Absolute Auto 0.1 K/mm3 (0-0.3); Eosinophils Percent Auto 0.7 % (0-4.4); Hematocrit 43.1 % (42.0-52.0); Hemoglobin 13.6 g/dL (14.0-18.0); Immature Granulocyte Absolute 0.06 K/mm3 (0.00-0.031); Immature Granulocyte Percent A 0.5 % (0-0.5); Lymphocytes Absolute Auto 1.63 K/mm3 (0.9-3.2); Lymphocytes Percent Auto 12.3 % (18.3-44.2); Mean Corpuscular HGB Conc 31.6 g/dl (32-36); Mean Corpuscular Hemoglobin 30.6 pg (26-34); Mean Corpuscular Volume 96.9 fl (80-100); Mean Platelet Volume 10.4 fl (7.4-10.4); Monocytes Percent Auto 7.8 % (2.6-8.5); Neutrophils Absolute Auto 10.4 K/mm3 (1.3-6.7); Neutrophils Percent Auto 78.5 % (45.5-73.1); Platelet Count Result 158 k/mm3 (150-375); Red Blood Count 4.45 M/mm3 (4.6-6.20); Red Cell Distribution Width 15.4 % (11.5-14.5); White Blood Count 13.3 K/mm3 (4.5-10.0)
[2023-04-29 06:39] LABS: Alanine Aminotransferase 15 U/L (6-50); Albumin Level 3.6 g/dL (3.5-5.1); Alkaline Phosphatase 63 U/L (38-126); Anion Gap -1 mmol/L (8-16); Aspartate Amino Transferase 25 U/L (17-59); Bilirubin,Total 0.7 mg/dL (0.2-1.3); Blood Urea Nitrogen 20 mg/dL (9-20); Calcium 9.2 mg/dL (8.4-10.2); Carbon Dioxide 38 mmol/L (22-30); Chloride 97 mmol/L (98-107); Estimated CRCL calculation 127 ml/min; Estimated Glomerular Filt Rate > 60; Glucose 117 mg/dL (65-110); Potassium 3.9 mmol/L (3.4-5.0); Sodium 134 mmol/L (137-145)
[2023-04-29] MEDS: predniSONE 20 MG TABLET 40 MG PO (08:32)
[2023-04-29] MEDS: ASPIRIN 81 MG ENTERIC TABLET PO (08:32)
[2023-04-29] MEDS: CARBIDOPA/LEVODOPA 25/100 MG TABLET 4 TABLET PO ×3 (08:32→16:41)
[2023-04-29] MEDS: ENOXAPARIN 40 MG/0.4 ML SYRINGE SUB-Q (08:32)
[2023-04-29] MEDS: AMOXICILLIN/CLAVULANATE K 875-125 MG TAB 1 TABLET PO ×2 (08:32→20:27)
--- NOTE | 2023-04-29 11:39 | PM.PNPUL ---
Progress Note: A&P Assessment and Plan (1) Obesity hypoventilation syndrome: Code(s): E66.2 - Morbid (severe) obesity with alveolar hypoventilation Status: Acute (2) Acute respiratory failure with hypoxia and hypercapnia: Code(s): J96.01 - Acute respiratory failure with hypoxia; J96.02 - Acute respiratory failure with hypercapnia Status: Acute (3) Acute respiratory failure with hypoxemia: Code(s): J96.01 - Acute respiratory failure with hypoxia Status: Acute Assessment and Plan: The patient is a 72-year-old male with a history of obesity hypoventilation. He relies on home ventilatory support and has frequently suffered from bronchitis, presenting with symptoms such as chest congestion, cough, wheezing, and sputum production. Over the past four months, he has been hospitalized thrice with similar symptoms. I previously treated this patient during a hospitalization in March. Since then, he was also admitted to [facility] about two weeks ago, presenting with chest congestion, cough, wheezing, and hypoxemia. His chest X-rays have consistently been inconclusive. Recent pulmonary function tests showed no signs of obstructive airway disease. These bronchitis episodes could be due to an obstructive airway disease like asthma, as there is no evidence of COPD from his pulmonary function tests. His elevated eosinophil count on two occasions also suggests asthma. Alternatively, given his Parkinson's history, these episodes could be related to aspiration. He had a negative video swallow study during his previous hospitalization in March, and his has reported no observable choking episodes during meals. Plan: We will continue with the current treatment plan of oral antibiotics, nebulized short-acting bronchodilators, and an oral prednisone regimen. Nebulized Pulmicort has been added to his regimen. The patient appears to be tolerating the BiPAP support well for his obesity hypoventilation. We may need to start him on outpatient maintenance bronchodilators for possible obstructive airway disease like asthma. I will follow along with you. (4) Parkinsons disease: Code(s): G20 - Parkinson's disease Status: Acute Subjective Date/time seen: 04/29/23 11:39 Interval history: The patient reports no new respiratory issues and notes an improvement in his breathing. He had a good night's sleep with BiPAP support. Despite enduring continued cough and chest congestion, he remains without a fever. Over the past four months, the patient has experienced recurring bronchitis episodes. His , who was present during the consultation, informed us that he was admitted to [facility] around two weeks ago with similar symptoms. She also mentioned that he does not appear to be experiencing food choking incidents or coughing spells during meals. Review of Systems Review of Systems: All systems reviewed & are unremarkable except as noted in HPI and below (HPI and below) Exam Narrative: GENERAL APPEARANCE: Well developed, well nourished, alert and cooperative, and appears to be in no acute distress while on supplemental oxygen via nasal cannula SKIN: Inspection of the skin reveals no rashes, ulcerations or petechiae. HEENT: Sclerae anicteric and conjunctivae pink and moist. Extraocular movements were intact and pupils were equal, round, and reactive to light. The oral mucosa, hard and soft palate, tongue and posterior pharynx were normal. NECK: Supple. There was no thyroid enlargement, and no tenderness, or masses were felt. CHEST: Normal AP diameter and normal contour without any kyphoscoliosis. LUNGS: Rhonchi and mild expiratory wheezing bilaterally CARDIAC: There was a regular rate and rhythm without any murmurs, gallops, rubs. ABDOMEN: Soft and nontender with normal bowel sounds. There was no organomegaly. LYMPH NODES: No lymphadenopathy was appreciated in the neck. EXTREMITIES: No cyanosis, clubbing or ed
--- NOTE | 2023-04-29 15:33 | PM.IMPN ---
Progress Note: A&P Assessment and Plan (1) Acute respiratory failure with hypoxia and hypercapnia: Code(s): J96.01 - Acute respiratory failure with hypoxia; J96.02 - Acute respiratory failure with hypercapnia Status: Acute Assessment and Plan: continue Augmentin Will be discharged on steroid taper currently on RA Check home O2 eval pulmonology following - sees Dr. Branch outpatient Nebulized Pulmicort (2) Obesity hypoventilation syndrome: Code(s): E66.2 - Morbid (severe) obesity with alveolar hypoventilation Status: Acute (3) CHEMA (obstructive sleep apnea): Code(s): G47.33 - Obstructive sleep apnea (adult) (pediatric) Status: Acute (4) Parkinsons disease: Code(s): G20 - Parkinson's disease Status: Acute (5) Essential hypertension: Code(s): I10 - Essential (primary) hypertension Status: Chronic (6) Orthostatic hypotension: Code(s): I95.1 - Orthostatic hypotension Status: Acute Plan 04/27: The patient's outpatient incubator operator is Dr. Branch, he has had recent PFTs and 6 minute walk test. In [facility] he was placed on BiPAP to which his dyspnea improved somewhat. His chest x-ray was unrevealing with a WBC 8.6, afebrile. ABG revealed pH of 7.38 with the pCO2 of 54.8 PO2 95 and bicarb 31.9. Of note, he has a chronic cough with intermittent production of clear sputum which has not changed much. Patient has acute hypoxic and hypercarbic respiratory failure he does appear to be a chronic retainer and looks to be fully compensated. Will keep him on continuous BiPAP with breaks for meals and repeat ABG noted. For now will continue DuoNeb scheduled q.4 hours along with Solu-Medrol. His outpatient incubator operator is Dr. Branch and in light of his multiple readmissions will consult pulmonology for help in optimization. 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 [employer] has been aware of his eosinophilia. On 03/30/2023 his Aspergillus antibodies resulted negative. On this admission a influenza, RSV, COVID PCR resulted negative. He has been tested for pulmonary embolism multiple times in the past few months so we will forego repeating this test again at the moment. As for his hypertension, it is currently controlled. Per the report of the the patient was placed on metolazone and Lasix for his lower extremity edema. He does have positive ortho stasis per the family as well which is likely due to Parkinson's. Hold his diuretics for now as this would place him at risk for syncope and falls. He is inevitably going to have chronic stasis due to his morbid obesity. He does not appear to be in a acutely decompensated heart failure picture. Diastolic dysfunction noted on echocardiogram in March 2023. Resume his home meds for Parkinson's. FEN: Saline lock IV. Cardiac diet GI prophylaxis: Not indicated DVT prophylaxis: Lovenox 40 mg q.day Lines: Peripheral IV Code Status: Full code Dispo: Stable in IMU Subjective Date/time seen: 04/29/23 15:33 Interval history: Patient in no distress, although his lungs sound quite awful this am. He denies SOB or difficulty breathing on RA. Pulm following. Will continue regimen and recommendations. Plan for d/c and follow up outpatient with pulm when appropriate. Review of Systems Review of Systems: All systems reviewed & are unremarkable except as noted in HPI and below (Subjective) Exam Narrative: General: Overweight male sitting up in bed, No acute distress HEENT: Atraumatic, normocephalic, mucous membranes moist; PERRLA, EOMI CV: RRR Lungs: Diminished in lower lobes, scattered wheezes and rales. Abdomen: Soft, nontender, nondistended. BS present. Extremities: Normal to inspection, 2+ pitting edema Skin: No rashes noted, no lesions or wounds seen Psych: normal affect; A&O x3
[2023-04-29] MEDS: ATORVASTATIN 40 MG TABLET PO (20:27)
[2023-04-29] MEDS: BUDESONIDE RESPULE NEB 0.5 MG/2 ML AMP INHALATION (21:39)
[2023-04-30] VITALS (13 sets, daily range): BP systolic 136–154; BP diastolic 61–82; PULSE 71–98; RESP 16–23; TEMP 36.4–36.9; O2SAT 93–100
[2023-04-30] MEDS: IPRATROPIUM 0.5 MG/ALBUTEROL SULFATE 2.5 MG AMPUL.NEB 3 ML INHALATION ×4 (01:55→20:05)
[2023-04-30 06:00] LABS: Basophils Percent Auto 0.4 % (0.2-1.2); Eosinophils Absolute Auto 0.3 K/mm3 (0-0.3); Eosinophils Percent Auto 2.7 % (0-4.4); Hematocrit 43.7 % (42.0-52.0); Immature Granulocyte Absolute 0.06 K/mm3 (0.00-0.031); Immature Granulocyte Percent A 0.6 % (0-0.5); Lymphocytes Absolute Auto 2.04 K/mm3 (0.9-3.2); Lymphocytes Percent Auto 20.5 % (18.3-44.2); Mean Corpuscular Volume 96.7 fl (80-100); Mean Platelet Volume 10.1 fl (7.4-10.4); Monocytes Absolute Auto 0.8 K/mm3 (0.1-0.6); Monocytes Percent Auto 8.3 % (2.6-8.5); Neutrophils Absolute Auto 6.7 K/mm3 (1.3-6.7); Neutrophils Percent Auto 67.5 % (45.5-73.1); Platelet Count Result 149 k/mm3 (150-375); Red Blood Count 4.52 M/mm3 (4.6-6.20); Red Cell Distribution Width 15.4 % (11.5-14.5)
[2023-04-30 06:23] LABS: Alanine Aminotransferase 13 U/L (6-50); Albumin Level 3.6 g/dL (3.5-5.1); Alkaline Phosphatase 67 U/L (38-126); Anion Gap -1 mmol/L (8-16); Aspartate Amino Transferase 25 U/L (17-59); Bilirubin,Total 0.7 mg/dL (0.2-1.3); Blood Urea Nitrogen 18 mg/dL (9-20); Calcium 9.1 mg/dL (8.4-10.2); Carbon Dioxide 38 mmol/L (22-30); Chloride 99 mmol/L (98-107); Estimated CRCL calculation 128 ml/min; Estimated Glomerular Filt Rate > 60; Glucose 106 mg/dL (65-110); Potassium 3.6 mmol/L (3.4-5.0); Sodium 136 mmol/L (137-145)
[2023-04-30] MEDS: BUDESONIDE RESPULE NEB 0.5 MG/2 ML AMP INHALATION ×2 (08:15→20:05)
[2023-04-30] MEDS: ASPIRIN 81 MG ENTERIC TABLET PO (08:59)
[2023-04-30] MEDS: predniSONE 20 MG TABLET 40 MG PO (08:59)
[2023-04-30] MEDS: AMOXICILLIN/CLAVULANATE K 875-125 MG TAB 1 TABLET PO ×2 (09:00→20:22)
[2023-04-30] MEDS: ENOXAPARIN 40 MG/0.4 ML SYRINGE SUB-Q (09:00)
[2023-04-30] MEDS: CARBIDOPA/LEVODOPA 25/100 MG TABLET 4 TABLET PO ×3 (09:00→17:50)
--- NOTE | 2023-04-30 09:54 | PM.PNPUL ---
Progress Note: A&P Assessment and Plan (1) Obesity hypoventilation syndrome: Code(s): E66.2 - Morbid (severe) obesity with alveolar hypoventilation Status: Acute (2) Acute respiratory failure with hypoxia and hypercapnia: Code(s): J96.01 - Acute respiratory failure with hypoxia; J96.02 - Acute respiratory failure with hypercapnia Status: Acute (3) Acute respiratory failure with hypoxemia: Code(s): J96.01 - Acute respiratory failure with hypoxia Status: Acute Assessment and Plan: The patient is a 72-year-old male with a history of obesity hypoventilation. He relies on home ventilatory support and has frequently suffered from bronchitis, presenting with symptoms such as chest congestion, cough, wheezing, and sputum production. Over the past four months, he has been hospitalized thrice with similar symptoms. I previously treated this patient during a hospitalization in March. Since then, he was also admitted to [facility] [place] about two weeks ago, presenting with chest congestion, cough, wheezing, and hypoxemia. His chest X-rays have consistently been inconclusive. Recent pulmonary function tests showed no signs of obstructive airway disease. These bronchitis episodes could be due to an obstructive airway disease like asthma, as there is no evidence of COPD from his pulmonary function tests. His elevated eosinophil count on two occasions also suggests asthma. Alternatively, given his Parkinson's history, these episodes could be related to aspiration. He had a negative video swallow study during his previous hospitalization in March, and his has reported no observable choking episodes during meals. His respiratory status seems to be improving slowly. Plan: We will continue with the current treatment plan of oral antibiotics, nebulized short-acting bronchodilators, and an oral prednisone regimen. Nebulized Pulmicort has been added to his regimen. The patient appears to be tolerating the BiPAP support well for his obesity hypoventilation. We may need to start him on outpatient maintenance bronchodilators for possible obstructive airway disease like asthma. I will follow along with you. (4) Parkinsons disease: Code(s): G20 - Parkinson's disease Status: Acute Subjective Date/time seen: 04/30/23 09:54 Interval history: Patient feels better although he continues to have a cough and wheezing, less than before. Afebrile. Tolerating BiPAP support with no problems. Review of Systems Review of Systems: All systems reviewed & are unremarkable except as noted in HPI and below (HPI and below) Exam Narrative: GENERAL APPEARANCE: Well developed, well nourished, alert and cooperative, and appears to be in no acute distress while on supplemental oxygen via nasal cannula SKIN: Inspection of the skin reveals no rashes, ulcerations or petechiae. HEENT: Sclerae anicteric and conjunctivae pink and moist. Extraocular movements were intact and pupils were equal, round, and reactive to light. The oral mucosa, hard and soft palate, tongue and posterior pharynx were normal. NECK: Supple. There was no thyroid enlargement, and no tenderness, or masses were felt. CHEST: Normal AP diameter and normal contour without any kyphoscoliosis. LUNGS: Rhonchi and mild expiratory wheezing bilaterally CARDIAC: There was a regular rate and rhythm without any murmurs, gallops, rubs. ABDOMEN: Soft and nontender with normal bowel sounds. There was no organomegaly. LYMPH NODES: No lymphadenopathy was appreciated in the neck. EXTREMITIES: No cyanosis, clubbing or edema. Old stasis dermatitis changes in lower extremities. NEUROLOGIC: Alert and oriented x 3. Normal affect. Objective Data Vital Signs Vital Signs: Vital Signs - 24 hr 04/29/23 10:41 04/29/23 13:19 04/29/23 13:27 Temperature 36.0 C L Pulse Rate 79 95 84 Respiratory Rate 16 18 18 Blood Pressure 130/65 Pulse Oximetry 92 Oxygen Delivery Oxy
--- NOTE | 2023-04-30 14:51 | PM.IMPN ---
Progress Note: A&P Assessment and Plan (1) Acute respiratory failure with hypoxia and hypercapnia: Code(s): J96.01 - Acute respiratory failure with hypoxia; J96.02 - Acute respiratory failure with hypercapnia Status: Acute Assessment and Plan: continue Augmentin Will be discharged on steroid taper currently on RA Check home O2 eval prior to d/c pulmonology following - sees Dr. Branch outpatient Nebulized Pulmicort (2) Obesity hypoventilation syndrome: Code(s): E66.2 - Morbid (severe) obesity with alveolar hypoventilation Status: Acute Assessment and Plan: Bipap support (3) CHEMA (obstructive sleep apnea): Code(s): G47.33 - Obstructive sleep apnea (adult) (pediatric) Status: Chronic Assessment and Plan: see above (4) Parkinsons disease: Code(s): G20 - Parkinson's disease Status: Chronic Assessment and Plan: continue home meds (5) Essential hypertension: Code(s): I10 - Essential (primary) hypertension Status: Chronic Assessment and Plan: resume Lasix (6) Orthostatic hypotension: Code(s): I95.1 - Orthostatic hypotension Status: Acute Plan FEN: Saline lock IV. Cardiac diet GI prophylaxis: Not indicated DVT prophylaxis: Lovenox 40 mg q.day Lines: Peripheral IV Code Status: Full code Subjective Date/time seen: 04/30/23 14:51 Interval history: Patient in no distress, although his lungs sound quite awful this am. He denies SOB or difficulty breathing on RA. Pulm following. Will continue regimen and recommendations. Plan for d/c and follow up outpatient with pulm when appropriate. Review of Systems Review of Systems: All systems reviewed & are unremarkable except as noted in HPI and below (Subjective) Exam Narrative: General: Overweight male sitting up in bed, No acute distress HEENT: Atraumatic, normocephalic, mucous membranes moist; PERRLA, EOMI CV: RRR Lungs: Diminished in lower lobes, scattered wheezes and rales throughout. Abdomen: Soft, nontender, nondistended. BS present. Extremities: Normal to inspection, 2+ pitting edema Skin: No rashes noted, no lesions or wounds seen Psych: normal affect; A&O x3 Objective Data Vital Signs Vital Signs: Vital Signs - 24 hr 04/29/23 20:07 04/29/23 21:39 04/29/23 21:39 Temperature 98.2 F Pulse Rate 88 76 76 Respiratory Rate 16 24 H 24 H Blood Pressure 122/68 Pulse Oximetry 93 97 Oxygen Delivery Oxygen Flow Rate 04/30/23 01:56 04/30/23 01:56 04/30/23 04:55 Temperature 97.5 F L Pulse Rate 81 81 77 Respiratory Rate 23 H 23 H 17 Blood Pressure 154/82 H Pulse Oximetry 97 100 Oxygen Delivery Oxygen Flow Rate 04/30/23 08:15 04/30/23 08:15 04/30/23 08:31 Temperature Pulse Rate 75 77 Respiratory Rate 20 20 Blood Pressure Pulse Oximetry 95 Oxygen Delivery Nasal Cannula Oxygen Flow Rate 2 04/30/23 13:40 04/30/23 13:53 Temperature Pulse Rate 90 94 Respiratory Rate 20 20 Blood Pressure Pulse Oximetry Oxygen Delivery Oxygen Flow Rate Intake/Output Intake/Output: Intake & Output 04/27/23 04/28/23 04/29/23 04/30/23 23:59 23:59 23:59 23:59 Intake Total 380 1720 1370 690 Output Total 900 1475 350 650 Balance -592 046 4633 40 Meds/Results Medications: Active Medications Generic Name Dose Route Start Last Admin Trade Name Freq PRN Reason Stop Dose Admin Albuterol/Ipratropium 3 ml 04/27/23 08:00 04/30/23 13:40 Ipratropium 0.5 Mg/Albuterol Sulfate 2.5 Mg Ampul.Neb 3 Ml INHALATION 3 ml Q6HRT KATHIA Administration Amoxicillin/Clavulanate Potassium 1 tablet 04/28/23 21:00 04/30/23 09:00 Amoxicillin/Clavulanate K 875-125 Mg Tab PO 1 tablet Q12HR KATHIA Administration Aspirin 81 mg 04/28/23 09:00 04/30/23 08:59 Aspirin 81 Mg Enteric Tablet PO 81 mg DAILY KATHIA Administration Atorvastatin Calcium 40 mg
[2023-04-30] MEDS: ATORVASTATIN 40 MG TABLET PO (20:22)
[2023-05-01] VITALS (15 sets, daily range): BP systolic 125–138; BP diastolic 62–74; PULSE 70–95; RESP 16–22; TEMP 36.6–36.9; O2SAT 91–97
[2023-05-01] MEDS: IPRATROPIUM 0.5 MG/ALBUTEROL SULFATE 2.5 MG AMPUL.NEB 3 ML INHALATION ×4 (02:15→21:59)
[2023-05-01 05:39] LABS: Basophils Percent Auto 0.3 % (0.2-1.2); Eosinophils Absolute Auto 0.5 K/mm3 (0-0.3); Eosinophils Percent Auto 4.9 % (0-4.4); Hematocrit 42.7 % (42.0-52.0); Hemoglobin 13.4 g/dL (14.0-18.0); Immature Granulocyte Absolute 0.07 K/mm3 (0.00-0.031); Immature Granulocyte Percent A 0.8 % (0-0.5); Lymphocytes Absolute Auto 1.99 K/mm3 (0.9-3.2); Lymphocytes Percent Auto 21.7 % (18.3-44.2); Mean Corpuscular HGB Conc 31.4 g/dl (32-36); Mean Corpuscular Hemoglobin 30.1 pg (26-34); Mean Platelet Volume 10.1 fl (7.4-10.4); Monocytes Absolute Auto 0.7 K/mm3 (0.1-0.6); Monocytes Percent Auto 7.7 % (2.6-8.5); Neutrophils Absolute Auto 5.9 K/mm3 (1.3-6.7); Neutrophils Percent Auto 64.6 % (45.5-73.1); Platelet Count Result 145 k/mm3 (150-375); Red Blood Count 4.45 M/mm3 (4.6-6.20); Red Cell Distribution Width 15.3 % (11.5-14.5); White Blood Count 9.2 K/mm3 (4.5-10.0)
[2023-05-01 05:51] LABS: Alanine Aminotransferase 10 U/L (6-50); Albumin Level 3.4 g/dL (3.5-5.1); Alkaline Phosphatase 67 U/L (38-126); Anion Gap 1 mmol/L (8-16); Aspartate Amino Transferase 20 U/L (17-59); Bilirubin,Total 0.8 mg/dL (0.2-1.3); Blood Urea Nitrogen 15 mg/dL (9-20); Carbon Dioxide 34 mmol/L (22-30); Chloride 100 mmol/L (98-107); Estimated CRCL calculation 128 ml/min; Estimated Glomerular Filt Rate > 60; Glucose 105 mg/dL (65-110); Potassium 3.6 mmol/L (3.4-5.0); Sodium 135 mmol/L (137-145)
[2023-05-01] MEDS: BUDESONIDE RESPULE NEB 0.5 MG/2 ML AMP INHALATION ×2 (07:52→21:59)
[2023-05-01] MEDS: FUROSEMIDE 20 MG TABLET PO (09:24)
[2023-05-01] MEDS: predniSONE 20 MG TABLET 40 MG PO (09:24)
[2023-05-01] MEDS: AMOXICILLIN/CLAVULANATE K 875-125 MG TAB 1 TABLET PO ×2 (09:25→20:33)
[2023-05-01] MEDS: ENOXAPARIN 40 MG/0.4 ML SYRINGE SUB-Q (09:25)
[2023-05-01] MEDS: ASPIRIN 81 MG ENTERIC TABLET PO (09:25)
[2023-05-01] MEDS: CARBIDOPA/LEVODOPA 25/100 MG TABLET 4 TABLET PO ×3 (09:25→17:37)
--- NOTE | 2023-05-01 17:24 | PM.IMPN ---
Progress Note: A&P Assessment and Plan (1) Acute respiratory failure with hypoxia and hypercapnia: Code(s): J96.01 - Acute respiratory failure with hypoxia; J96.02 - Acute respiratory failure with hypercapnia Status: Acute Assessment and Plan: continue Augmentin Will be discharged on slow steroid taper currently on RA Check home O2 eval prior to d/c pulmonology following - sees Dr. Branch outpatient Nebulized Pulmicort (2) Obesity hypoventilation syndrome: Code(s): E66.2 - Morbid (severe) obesity with alveolar hypoventilation Status: Acute Assessment and Plan: Bipap support (3) CHEMA (obstructive sleep apnea): Code(s): G47.33 - Obstructive sleep apnea (adult) (pediatric) Status: Chronic Assessment and Plan: BiPap (4) Parkinsons disease: Code(s): G20 - Parkinson's disease Status: Chronic Assessment and Plan: continue home meds (5) Essential hypertension: Code(s): I10 - Essential (primary) hypertension Status: Chronic Assessment and Plan: 3/2 BP controlled (6) Orthostatic hypotension: Code(s): I95.1 - Orthostatic hypotension Status: Acute Assessment and Plan: Likely related to PD Subjective Date/time seen: 05/01/23 17:24 Interval history: Continues to cough intermittently. Short of breath with any activity. Sputum is clear when produced. But only scant amounts. Has expert or wheezing still. Minimal puffiness of legs. No chest pain. No abdominal pain. No GI or complaints other than constipation. No abnormal bleeding. No focal weakness. Review of Systems Review of Systems: All systems reviewed & are unremarkable except as noted in HPI and below Exam Narrative: General: NAD. HEENT: Mucous membranes moist; PERRLA CV: NL S1,2, RR, no audible murmur Lungs: Diminished in lower lobes, scattered wheezes bilateral LL and ant. expiratory Abdomen: Soft, nontender, nondistended. BS present. Extremities: Normal to inspection, Trace pitting of ankles Skin: No rashes noted Psych: normal affect; A&O x3 Objective Data Vital Signs Vital Signs: Vital Signs - 24 hr 04/30/23 20:05 04/30/23 20:05 04/30/23 20:00 Temperature Pulse Rate 71 71 Respiratory Rate 20 Blood Pressure Pulse Oximetry 95 95 Oxygen Delivery Nasal Cannula Nasal Cannula Oxygen Flow Rate 2 2 04/30/23 21:43 04/30/23 20:15 05/01/23 02:15 Temperature 97.8 F Pulse Rate 73 75 70 Respiratory Rate 20 20 20 Blood Pressure 150/80 H Pulse Oximetry 97 Oxygen Delivery Oxygen Flow Rate 05/01/23 02:25 04/30/23 22:55 05/01/23 03:23 Temperature Pulse Rate 72 72 74 Respiratory Rate 20 20 22 H Blood Pressure Pulse Oximetry 97 97 Oxygen Delivery Oxygen Flow Rate 05/01/23 04:48 05/01/23 07:54 05/01/23 07:55 Temperature 97.9 F Pulse Rate 72 77 Respiratory Rate 20 20 Blood Pressure 138/74 Pulse Oximetry 96 94 Oxygen Delivery Nasal Cannula Oxygen Flow Rate 2 05/01/23 08:05 05/01/23 11:45 05/01/23 14:02 Temperature Pulse Rate 72 89 Respiratory Rate 20 20 Blood Pressure Pulse Oximetry 96 Oxygen Delivery Nasal Cannula Oxygen Flow Rate 2 05/01/23 14:08 05/01/23 15:05 Temperature 98.4 F Pulse Rate 92 95 Respiratory Rate 20 16 Blood Pressure 125/62 Pulse Oximetry 91 Oxygen Delivery Oxygen Flow Rate Intake/Output Intake/Output: Intake & Output 04/28/23 04/29/23 04/30/23 05/01/23 23:59 23:59 23:59 23:59 Intake Total 1720 1370 940 580 Output Total 1475 970 532 1049 Balance 245 1020 290 -770 Meds/Results Medications: Active Medications Generic Name Dose Route Start Last Admin Trade Name Freq PRN Reason Stop Dose Admin Albuterol/Ipratropium 3 ml 04/27/23 08:00 05/01/23 13:58 Ipratropium 0.5 Mg/Albuterol Sulfate 2.5 Mg Ampul.Neb 3 Ml INHALATION 3 ml Q6HRT KATHIA Administration Amoxicilli
[2023-05-01] MEDS: ATORVASTATIN 40 MG TABLET PO (20:33)
[2023-05-01] MEDS: SENNOSIDES 8.6 MG TABLET 17.2 MG PO (20:33)
[2023-05-02] VITALS (15 sets, daily range): BP systolic 126–128; BP diastolic 58–87; PULSE 71–92; RESP 14–20; TEMP 36.2–36.6; O2SAT 92–100
[2023-05-02] MEDS: IPRATROPIUM 0.5 MG/ALBUTEROL SULFATE 2.5 MG AMPUL.NEB 3 ML INHALATION ×4 (02:31→20:36)
[2023-05-02 05:27] LABS: Basophils Percent Auto 0.3 % (0.2-1.2); Eosinophils Absolute Auto 0.4 K/mm3 (0-0.3); Eosinophils Percent Auto 4.8 % (0-4.4); Hematocrit 42.5 % (42.0-52.0); Hemoglobin 13.5 g/dL (14.0-18.0); Immature Granulocyte Absolute 0.06 K/mm3 (0.00-0.031); Immature Granulocyte Percent A 0.7 % (0-0.5); Lymphocytes Absolute Auto 1.86 K/mm3 (0.9-3.2); Lymphocytes Percent Auto 20.2 % (18.3-44.2); Mean Corpuscular HGB Conc 31.8 g/dl (32-36); Mean Corpuscular Hemoglobin 30.8 pg (26-34); Mean Corpuscular Volume 96.8 fl (80-100); Mean Platelet Volume 10.1 fl (7.4-10.4); Monocytes Absolute Auto 0.6 K/mm3 (0.1-0.6); Monocytes Percent Auto 6.5 % (2.6-8.5); Neutrophils Absolute Auto 6.2 K/mm3 (1.3-6.7); Neutrophils Percent Auto 67.5 % (45.5-73.1); Platelet Count Result 148 k/mm3 (150-375); Red Blood Count 4.39 M/mm3 (4.6-6.20); Red Cell Distribution Width 15.4 % (11.5-14.5); White Blood Count 9.2 K/mm3 (4.5-10.0)
[2023-05-02 05:38] LABS: Alanine Aminotransferase 11 U/L (6-50); Albumin Level 3.4 g/dL (3.5-5.1); Alkaline Phosphatase 66 U/L (38-126); Anion Gap 0 mmol/L (8-16); Aspartate Amino Transferase 18 U/L (17-59); Bilirubin,Total 0.8 mg/dL (0.2-1.3); Blood Urea Nitrogen 17 mg/dL (9-20); Carbon Dioxide 36 mmol/L (22-30); Chloride 99 mmol/L (98-107); Estimated CRCL calculation 113 ml/min; Estimated Glomerular Filt Rate > 60; Glucose 110 mg/dL (65-110); Potassium 3.7 mmol/L (3.4-5.0); Sodium 135 mmol/L (137-145)
[2023-05-02] MEDS: BUDESONIDE RESPULE NEB 0.5 MG/2 ML AMP INHALATION ×2 (07:45→20:35)
[2023-05-02] MEDS: ENOXAPARIN 40 MG/0.4 ML SYRINGE SUB-Q (09:17)
[2023-05-02] MEDS: AMOXICILLIN/CLAVULANATE K 875-125 MG TAB 1 TABLET PO ×2 (09:18→20:59)
[2023-05-02] MEDS: predniSONE 20 MG TABLET 40 MG PO (09:18)
[2023-05-02] MEDS: ASPIRIN 81 MG ENTERIC TABLET PO (09:18)
[2023-05-02] MEDS: FUROSEMIDE 20 MG TABLET PO (09:18)
[2023-05-02] MEDS: CARBIDOPA/LEVODOPA 25/100 MG TABLET 4 TABLET PO ×3 (09:18→17:15)
--- NOTE | 2023-05-02 11:49 | PM.IMPN ---
Progress Note: A&P Assessment and Plan (1) Acute respiratory failure with hypoxia and hypercapnia: Code(s): J96.01 - Acute respiratory failure with hypoxia; J96.02 - Acute respiratory failure with hypercapnia Status: Acute Assessment and Plan: continue Augmentin Will be discharged on slow steroid taper currently on pulmonology following - sees Dr. Branch outpatient Nebulized Pulmicort Home O2 eval ordered for 3/4 AM (2) Obesity hypoventilation syndrome: Code(s): E66.2 - Morbid (severe) obesity with alveolar hypoventilation Status: Acute Assessment and Plan: Bipap support (3) CHEMA (obstructive sleep apnea): Code(s): G47.33 - Obstructive sleep apnea (adult) (pediatric) Status: Chronic Assessment and Plan: BiPap (4) Parkinsons disease: Code(s): G20 - Parkinson's disease Status: Chronic Assessment and Plan: continue home meds (5) Essential hypertension: Code(s): I10 - Essential (primary) hypertension Status: Chronic Assessment and Plan: 3/3 BP controlled (6) Orthostatic hypotension: Code(s): I95.1 - Orthostatic hypotension Status: Acute Assessment and Plan: Likely related to PD 3/3 w/o dizziness or presyncope Subjective Date/time seen: 05/02/23 11:49 Interval history: Showered this am. Feels better overall. Less cough. Minimal SOB. Ate well. Denied pain. Still no BM. Denied pain. Review of Systems Review of Systems: All systems reviewed & are unremarkable except as noted in HPI and below Exam Narrative: General: NAD. HEENT: Mucous membranes moist; PERRLA CV: NL S1,2, RR, no audible murmur Lungs: NL effort, scattered insp/exp wheezes bilateral LL and ant. expiratory wheezes Abdomen: Soft, nontender, nondistended. BS present. Extremities: Chronic venous stasis changes, not pitting edema Skin: No rashes noted Psych: normal affect; A&O x3 Objective Data Vital Signs Vital Signs: Vital Signs - 24 hr 05/01/23 14:02 05/01/23 14:08 05/01/23 15:05 Temperature 98.4 F Pulse Rate 89 92 95 Respiratory Rate 20 20 16 Blood Pressure 125/62 Pulse Oximetry 91 Oxygen Delivery Oxygen Flow Rate Fraction of Inspired Oxygen 05/01/23 19:53 05/01/23 20:00 05/01/23 22:00 Temperature 98 F Pulse Rate 89 86 Respiratory Rate 18 20 Blood Pressure 132/66 Pulse Oximetry 92 Oxygen Delivery Room Air Oxygen Flow Rate Fraction of Inspired Oxygen 05/01/23 22:15 05/01/23 22:16 05/01/23 22:00 Temperature Pulse Rate 84 77 Respiratory Rate 20 20 Blood Pressure Pulse Oximetry 97 95 Oxygen Delivery Nasal Cannula Oxygen Flow Rate 2 Fraction of Inspired Oxygen 05/02/23 02:31 05/02/23 02:32 05/02/23 02:39 Temperature Pulse Rate 78 71 84 Respiratory Rate 18 18 18 Blood Pressure Pulse Oximetry 97 Oxygen Delivery Oxygen Flow Rate Fraction of Inspired Oxygen 05/02/23 04:27 05/02/23 05:48 05/02/23 07:45 Temperature 97.9 F Pulse Rate 71 77 Respiratory Rate 14 18 Blood Pressure 128/87 Pulse Oximetry 100 97 93 Oxygen Delivery Room Air Oxygen Flow Rate Fraction of Inspired Oxygen 21 05/02/23 07:45 05/02/23 08:00 05/02/23 10:19 Temperature Pulse Rate 73 77 Respiratory Rate 18 18 Blood Pressure Pulse Oximetry Oxygen Delivery Room Air Oxygen Flow Rate Fraction of Inspired Oxygen Intake/Output Intake/Output: Intake & Output 04/29/23 04/30/23 05/01/23 05/02/23 23:59 23:59 23:59 23:59 Intake Total 1370 940 820 220 Output Total 766 738 6684 550 Balance 1020 290 -530 -330 Meds/Results Medications: Active Medications Generic Name Dose Route Start Last Admin Trade Name Freq PRN Reason Stop Dose Admin Albuterol/Ipratropium 3 ml 04/27/23 08:00 05/02/23 07:45 Ipratropium 0.5 Mg/Albuterol Sulfate 2.5 Mg Ampul.Neb 3 Ml INHALATION 3 ml Q6HRT KATHIA
[2023-05-02] MEDS: polyethylene glycoL 3350 17 GM POWD.PACK PO (12:27)
--- NOTE | 2023-05-02 16:12 | PCPTNOTE ---
Attempted to see for physical therapy evaluation, pt refused d/t having multiple family members present. Will continue to follow.
[2023-05-02] MEDS: ATORVASTATIN 40 MG TABLET PO (20:59)
[2023-05-02] MEDS: SENNOSIDES 8.6 MG TABLET 17.2 MG PO (20:59)
[2023-05-03] VITALS (11 sets, daily range): BP systolic 120–153; BP diastolic 55–76; PULSE 74–120; RESP 18–20; TEMP 36.5; O2SAT 93–99
[2023-05-03] MEDS: IPRATROPIUM 0.5 MG/ALBUTEROL SULFATE 2.5 MG AMPUL.NEB 3 ML INHALATION ×3 (03:05→13:15)
[2023-05-03 05:56] LABS: Basophils Percent Auto 0.3 % (0.2-1.2); Eosinophils Absolute Auto 0.5 K/mm3 (0-0.3); Hematocrit 41.7 % (42.0-52.0); Hemoglobin 13.1 g/dL (14.0-18.0); Immature Granulocyte Absolute 0.05 K/mm3 (0.00-0.031); Immature Granulocyte Percent A 0.6 % (0-0.5); Mean Corpuscular HGB Conc 31.4 g/dl (32-36); Mean Corpuscular Hemoglobin 29.9 pg (26-34); Mean Corpuscular Volume 95.2 fl (80-100); Mean Platelet Volume 10.1 fl (7.4-10.4); Monocytes Absolute Auto 0.7 K/mm3 (0.1-0.6); Monocytes Percent Auto 7.3 % (2.6-8.5); Neutrophils Percent Auto 66.8 % (45.5-73.1); Platelet Count Result 144 k/mm3 (150-375); Red Blood Count 4.38 M/mm3 (4.6-6.20); Red Cell Distribution Width 15.3 % (11.5-14.5)
[2023-05-03 06:19] LABS: Alanine Aminotransferase 8 U/L (6-50); Albumin Level 3.3 g/dL (3.5-5.1); Alkaline Phosphatase 72 U/L (38-126); Anion Gap 0 mmol/L (8-16); Aspartate Amino Transferase 18 U/L (17-59); Bilirubin,Total 0.7 mg/dL (0.2-1.3); Blood Urea Nitrogen 17 mg/dL (9-20); Carbon Dioxide 36 mmol/L (22-30); Chloride 99 mmol/L (98-107); Estimated CRCL calculation 113 ml/min; Estimated Glomerular Filt Rate > 60; Glucose 107 mg/dL (65-110); Potassium 3.8 mmol/L (3.4-5.0); Sodium 135 mmol/L (137-145)
[2023-05-03] MEDS: BUDESONIDE RESPULE NEB 0.5 MG/2 ML AMP INHALATION (07:32)
[2023-05-03] MEDS: AMOXICILLIN/CLAVULANATE K 875-125 MG TAB 1 TABLET PO (08:46)
[2023-05-03] MEDS: predniSONE 20 MG TABLET 40 MG PO (08:46)
[2023-05-03] MEDS: FUROSEMIDE 20 MG TABLET PO (08:46)
[2023-05-03] MEDS: ASPIRIN 81 MG ENTERIC TABLET PO (08:46)
[2023-05-03] MEDS: ENOXAPARIN 40 MG/0.4 ML SYRINGE SUB-Q (08:46)
[2023-05-03] MEDS: CARBIDOPA/LEVODOPA 25/100 MG TABLET 4 TABLET PO ×2 (08:46→13:26)
--- NOTE | 2023-05-03 10:18 | PCRCNOTE ---
Home O2 eval complete. Patient does not require Home O2 at this time. RN notified.
--- NOTE | 2023-05-03 11:53 | PM.PNPUL ---
Progress Note: A&P Assessment and Plan (1) Acute respiratory failure with hypoxemia: Code(s): J96.01 - Acute respiratory failure with hypoxia Status: Acute Assessment and Plan: The patient is a 72-year-old male with a history of obesity hypoventilation. He relies on home ventilatory support and has frequently suffered from bronchitis, presenting with symptoms such as chest congestion, cough, wheezing, and sputum production. Over the past four months, he has been hospitalized thrice with similar symptoms. I previously treated this patient during a hospitalization in March. Since then, he was also admitted to [facility] about two weeks ago, presenting with chest congestion, cough, wheezing, and hypoxemia. His chest X-rays have consistently been inconclusive. Recent pulmonary function tests showed no signs of obstructive airway disease. These bronchitis episodes could be due to an obstructive airway disease like asthma, as there is no evidence of COPD from his pulmonary function tests. His elevated eosinophil count on two occasions also suggests asthma. Alternatively, given his Parkinson's history, these episodes could be related to aspiration. He had a negative video swallow study during his previous hospitalization in March, and his has reported no observable choking episodes during meals. His respiratory status seems to be improving slowly. Plan: We will continue with the current treatment plan of oral antibiotics, nebulized short-acting bronchodilators, and an oral prednisone regimen. Nebulized Pulmicort has been added to his regimen. The patient appears to be tolerating the BiPAP support well for his obesity hypoventilation. We may need to start him on outpatient maintenance bronchodilators for possible obstructive airway disease like asthma. I will follow along with you. 05/03/23: patient says he feels good and back to his normal. Patient is wearing the hospital noninvasive ventilator with the AVAPS mode with 2 L bleed in and tolerating this well. His white blood cell count is 9.0, his creatinine is 0.8. He is afebrile. Currently room air saturations are 93%. he has no wheezing on exam. Speaking with the patient and the he has had 3 episodes over the last 3 months where he requires prednisone and when the prednisone is tapered he flares 1-2 weeks later. He has never been started on inhaled corticosteroids. They are requesting a 2 week prednisone taper. home O2 assessment -patient does not require supplemental oxygen at rest or with ambulation. Download 03/11/2023 through 03/29/2023: settings per download on 03/29/2023 with a rate of auto. Target tidal volume 550, EPAP minimum 4, EPAP maximum 13, P inspiratory 10. P inspiratory max 12. usage greater than or equal to 4 hours is 100%, median rate is 16, median tidal volume 700, median minute ventilation 10 L. portion with high leak 16%. Median leak is 17.5. Plan: From a pulmonary perspective patient is ready to be discharged on these medications. Prednisone 40 mg p.o. q.day x3 days, then prednisone 30 mg p.o. q.day x3 days, then prednisone 20 mg p.o. q.day x3 days, then prednisone 10 mg p.o. q.day x3 days. Trelegy inhaler 200-62.5-25 at 1 puff q.day. I have told the patient to contact the clinic if this inhaler is too expensive so a more affordable substitute could be prescribed. settings per download on 03/29/2023 with a rate of auto. Target tidal volume 550, EPAP minimum 4, EPAP maximum 13, P inspiratory 10. P inspiratory max 12. Rescue albuterol 2 puffs q.4 hours p.r.n. shortness of breath or wheezing. No oxygen at rest or with ambulation. When the patient naps or sleeps he should continue his home noninvasive ventilator with 2 L bleed in. I told the patient to call Dr. Branch in approximately 10 days to discuss his clinical progress as the patient and his wish to travel on a vacation on 05/13/2023. Dr. Branch can determine the best follow-up plan in 10
--- NOTE | 2023-05-03 13:59 | PM.DS ---
DS: Admitting Diagnosis Discharge Date 05/03/23 Admitting Diagnosis SOB DS: Discharge Diagnosis Discharge Diagnosis (1) Acute respiratory failure with hypoxia and hypercapnia: Code(s): J96.01 - Acute respiratory failure with hypoxia; J96.02 - Acute respiratory failure with hypercapnia Status: Acute Assessment and Plan: continue Augmentin discharged on 12 day prednisone steroid taper currently on RA - no oxygen needs per home O2 eval pulmonology following - sees Dr. Branch outpatient (2) Obesity hypoventilation syndrome: Code(s): E66.2 - Morbid (severe) obesity with alveolar hypoventilation Status: Acute Assessment and Plan: Bipap support (3) CHEMA (obstructive sleep apnea): Code(s): G47.33 - Obstructive sleep apnea (adult) (pediatric) Status: Chronic Assessment and Plan: BiPap (4) Parkinsons disease: Code(s): G20 - Parkinson's disease Status: Chronic Assessment and Plan: continue home meds (5) Essential hypertension: Code(s): I10 - Essential (primary) hypertension Status: Chronic Assessment and Plan: continue home meds (6) Orthostatic hypotension: Code(s): I95.1 - Orthostatic hypotension Status: Acute DS: Summary Hospital Course Hospital Course: Patient is a 72-year-old male with PMH of hypertension, CHEMA recently placed trilogy at home with 2 L bleed in, obesity hypoventilation syndrome, chronic stasis, history of orthostatic hypotension, diastolic dysfunction via echo in 03/24, Parkinson's disease. The patient has been in an out of hospital admissions last being March 2023 with acute hypoxic respiratory failure. Patient follows with Dr. Branch. He reports a cough at baseline with intermittent production of clear sputum. He has been newly diagnosed with reactive airway which better fits his symptoms, and will be d/c home today on a prednisone 12 day taper and Trelegy per pulmonology. He is to follow up in [address] Branch prior to his planned trip later this month. Status at Discharge Functional status at discharge: uses cane/walker Overall status at discharge: patient is back to baseline Time Spent with Patient Time attestation: Total time spent providing and/or coordinating discharge services: Exam Narrative: General: Sitting up in chair, no acute distress. HEENT: EOMI; PERRLA CV: RRR, no audible murmur Lungs: scattered insp/exp wheezes bilateral LL and ant. expiratory wheezes Abdomen: Soft, nontender, nondistended. BS present. Extremities: Chronic venous stasis changes, not pitting edema Skin: No rashes noted Psych: normal affect; A&O x3 DS: Data Data Completed and Pending Labs on day of discharge: Labs from last 24 hours 05/03/23 05:22 WBC 9.0 RBC 4.38 L Hgb 13.1 L Hct 41.7 L MCV 95.2 MCH 29.9 MCHC 31.4 L RDW 15.3 H Plt Count 144 L MPV 10.1 Immature Gran % (Auto) 0.6 H Neut % (Auto) 66.8 Lymph % (Auto) 20.0 [place] % (Auto) 7.3 Eos % (Auto) 5.0 H Baso % (Auto) 0.3 Lymph # (Auto) 1.80 [place] # (Auto) 0.7 H Eos # (Auto) 0.5 H Baso # (Auto) 0.0 Abs Immat Gran (auto) 0.05 H Absolute Neuts (auto) 6.0 Absolute Nucleated RBC 0.0 Nucleated RBC % 0.0 Sodium 135 L Potassium 3.8 Chloride 99 Carbon Dioxide 36 H Anion Gap 0 L BUN 17 Creatinine 0.80 Estim Creat Clear Calc 113 Estimated GFR > 60 Glucose 107 Calcium 9.0 Total Bilirubin 0.7 AST 18 ALT 8 Alkaline Phosphatase 72 Total Protein 6.0 L Albumin 3.3 L Discharge Plan Discharge Attending physician on discharge: Elías Peralta Consulting providers: Jose Manuel Iraheta Discharging Clinician: Lilia Benson Anticipated Discharge Date/Time: 05/03/23 12:38 Patient Disposition: Home, Self-Care Activity: as tolerated Diet: heart healthy Discharge Instructions: Prednisone 40 mg p.o. q.day x3 days, then prednisone 30 mg p.o. q.day x3 days
== END 2023-05-03 14:45 | disposition home or self-care (01) | DRG 189 ==
LOC: ANHED 06:09 → ANHIMU 15:52 → ANH3MED 05-03 12:51 → ANHIMU 05-05 10:54
PROVIDERS: General Practice; Internal Medicine Pulmonary Disease; Student in an Organized Health Care Education/Training Program; Admitting Provider Internal Medicine; Emergency Provider Emergency Medicine; PCP Internal Medicine; Visit Provider Nurse Practitioner
DX: J96.01 Acute respiratory failure with hypoxia (principal); E66.2 Morbid (severe) obesity with alveolar hypoventilation; Z68.42 Body mass index [BMI] 45.0-49.9, adult; I50.32 Chronic diastolic (congestive) heart failure; J96.02 Acute respiratory failure with hypercapnia; I11.0 Hypertensive heart disease with heart failure; J44.9 Chronic obstructive pulmonary disease, unspecified; G20.A1 Parkinson's disease without dyskinesia, without mention of fluctuations; I95.1 Orthostatic hypotension; M19.90 Unspecified osteoarthritis, unspecified site; Z96.653 Presence of artificial knee joint, bilateral; Z20.822 Contact with and (suspected) exposure to COVID-19; Z79.82 Long term (current) use of aspirin; Z86.711 Personal history of pulmonary embolism; Z87.891 Personal history of nicotine dependence
CPT/HCPCS: 36415; 36600; 71045; 80048; 80053; 82805; 83735; 84145; 85025; 87637; 87641; 93005; 93970; 94002; 94003; 94618; 94640; 96365; 96375; 97161; 97165; 97535; 99285; A9270; J1100; J1650; J2930; J3475; J7512